=== PATIENT | female | born 1965 | race Caucasian/White ===

== ENCOUNTER 2018-08-27 16:23 | Inpatient (IN) | payer MEDICAID ==
[~2018-08-27] VITALS: Ht 160 cm; Wt 114.3 kg
[2018-08-27] VITALS (10 sets, daily range): BP systolic 116–144; BP diastolic 41–83; BMI 51.8
--- NOTE | ~2018-08-27 | MORECARE ---
CASE MANAGEMENT DISCHARGE SUMMARY PATIENT: DWAYNE SMITH UNIT: [id number] ADM DATE: 08/27/18 AGE: 53 : 67 SEX: F ROOM/BED: D.2313 AUTHOR: ZAK DURON PHYSICIAN: REFERRING PHYSICIAN: LEON VELAZQUEZ MD DATE OF SERVICE: 09/20/18 Discharge Plan Patient Name: DWAYNE SMITH Facility: [facility]:[place] : 1965 Planned Disposition: Anticipated Discharge Date: Discharge Date: Expected LOS: Initial Reviewer: [id number] Initial Review Date: 08/27/2018 Generated: 09/20/18 8:33 pm Comments DCP- Discharge Planning Updated by [id number]: Erin Ruiz on 09/20/18 6:[address] CM attempted to visit with patient regarding discharge planning. Patient is alert but still on ventilator. Attempted to contact call contact number listed [phone]. NO Answer. NO family available.CM will continue to follow and assist as needed with discharge planning / needs. DCP- Discharge Planning Updated by [email or web address]: Erin Ruiz on 09/03/18 3:[address] Patient still sedated and on vent at this time. No family available to do discharge planning assessment. CM will continue to follow and assist as needed with discharge planning / needs. DCP- Discharge Planning Updated by [email or web address]: Sapna Steele on 09/01/18 9:[address] Patient Name: DWAYNE SMITH Admission Status: ER Accout number: [id number] Admission Date: 08-27-2018 : 1965 Admission Diagnosis: Attending: LEON VELAZQUEZ Current LOS: 5 Anticipated DC Date: Planned Disposition: Primary Insurance: MEDICAID [place] Discharge Planning Comments: PATIENT IS ON VENT. CALLED PHONE NUMBER LISTED ON HER CHART AND CHECKED THE WAITING ROOM FOR FAMILY. UNABLE TO GET IN TOUCH WITH FAMILY AT THIS TIME. I LEFT A MESSAGE ON THE PHONE, WAITING TO HEAR BACK. CM WILL FOLLOW AND ASSIST NEEDED WITH DC PLANNING NEEDS. Multimedia Producer: Sapna Steele Last DP export: 09/03/18 3:10 Patient Name: DWAYNE SMITH Page [id number] at 1934 All edits/amendments must be made on the electronic document DICTATION DATE: 09/20/181932 GROUP INSURANCE SPECIALIST: ELEAZAR 09/20/181932 RPT#: [id number] DC DATE: STATUS: ADM IN [facility] [address] [place] [address] END OF REPORT
--- NOTE | ~2018-08-27 | EC ---
PATIENT:DWAYNE SMITH DATE OF SERVICE: 08/27/18 SEX: F MEDICAL RECORD: [id number] DATE OF : 67 LOCATION:[facility] AGE OF PATIENT: 53 ADMISSION DATE: 08/27/18 REFERRING PHYSICIAN: INTERPRETING PHYSICIAN: ZACHERY GONZALEZ MD ECHOCARDIOGRAM REPORT ECHO CHARGES 4 ECHO COMPLETE Date: 09/06/18 CLINICAL DIAGNOSIS: PNEUMO MEDIASTINUM ECHOCARDIOGRAPHIC MEASUREMENTS (adult normal given) AC root (d.<3.7cm) 3.0 cm LV Septum d (<1.2 cm> 1.4 cm Valve Excursion 1.7 cm LV Septum (systole) 2.1 cm Left Atria (s.<4.0cm> 3.0 cm LVPW d(<1.2cm) 1.3 cm RV (d.<2.3cm) 2.3 cm LVPW (sytole) 2.1 cm LV diastole(<5.6CM) 4.5 cm MV E-F(>70mm/sec) cm LV systole 1.7 cm LVOT Diameter 1.7 cm MV exc.(>10mm) cm Est.ejection fraction (50-75%) % DOPPLER: LVIT cm/sec A 111 cm/sec E 83.0 cm/sec LA cm/sec RVSP 23.0 mmHg LVOT 215 cm/sec AOP1/2T m/s Asc. Ao 195 cm/sec RVOT 69.0 cm/sec RA cm/sec PA 110 cm/sec AV Gradient Peak 15.2 mmHg AV Mean 8.4 mmHg AV Area 2.4 cm MV Gradient Peak 5.0 mmHg MV Mean 2.0 mmHg MV Area cm COMMENTS: Dry Room Operator: Fernando KOCHOE Basket Hand Weaver: 1 Dr. Gonzalez TAPE# PACS Pericardial Effusion N DATE OF SERVICE: 09/06/2018 FINDINGS: 1. Left ventricular chamber size is within normal limits. Left ventricular systolic function is normal. Overall ejection fraction is estimated at 65%. 2. Left atrium, right atrium, and right ventricle chamber sizes are within normal limit. 3. Valvular structures have normal structure and motion. 4. Doppler interrogation reveals only mild mitral regurgitation. No other valvular insufficiency or stenosis. Pulmonary systolic pressure is normal at 23 ECHOCARDIOGRAM REPORT [id number] DWAYNE SMITH mmHg. 5. No evidence of pericardial effusion or left ventricular thrombus. TRANSINT:[id number] Voice Confirmation ID: [id number] DOCUMENT ID: [id number] ZACHERY GONZALEZ MD at 1059 CC: [id number] DICTATION DATE: 09/06/18 1640 AUTO RADIO MECHANIC: 09/06/18 1652 ADM IN [facility] [address] [place] [address]
--- NOTE | ~2018-08-27 | MORECARE ---
CASE MANAGEMENT DISCHARGE SUMMARY PATIENT: DWAYNE SMITH UNIT: [id number] ADM DATE: 08/27/18 AGE: 53 : 67 SEX: F ROOM/BED: D.0 AUTHOR: OLIVERIO,DOC PHYSICIAN: REFERRING PHYSICIAN: LEON VELAZQUEZ MD DATE OF SERVICE: 10/10/18 Discharge Plan Patient Name: DWAYNE SMITH Facility: [facility] : 1965 Planned Disposition: Nursing Facility [facility] Cert Anticipated Discharge Date: 10/10/18 Discharge Date: Expected LOS: 44 Initial Reviewer: [id number] Initial Review Date: 09/24/2018 Generated: 10/10/18 11:35 am Comments DCP- Discharge Planning Updated by [id number]: Pepito Hatch on 10/10/18 9:[address] Patient Name: DWAYNE SMITH Encounter No: [id number] : 1965 Primary Insurance: MEDICAID [place] Anticipated DC Date: 10-10-2018 Planned Disposition: Nursing Facility [facility] Cert External Planned Provider: [facility], INSTRUMENT WORKER CARE MEDICAID BED DCP follow-up note: CM RECEIVED DISCHARGE ORDER, SPOKE TO PT WHO IS IN AGREEMENT WITH DISCHARGE TODAY TO [facility]. CM FAXED DISCHARGE INFORMATION TO [facility], . NURSE REPORT TO BE CALLED TO [facility] IN [place], , [facility] VAN TO MANAGER MULTICULTURAL AT 1000 AM 10-10-18. Pepito Hatch, CASE MANAGEMENT Appended by Pepito Hatch on 10/10/2018 10:30 EDUCATIONAL PSYCHOLOGY PROFESSOR: ALEX ADVISED THAT CM HAD PROVIDED THE WRONG NUMBER FOR NURSE REPORT. THE CORRECT NUMBER IS : NURSE REPORT TO BE CALLED TO [facility] IN [place], , SOFTWARE INSTALLER NURSE NOTIFIED. GERI Johnson DCP- Discharge Planning Updated by [id number]: Pepito Hatch on 10/09/18 4:[address] Patient Name: DWAYNE SMITH Encounter No: [id number] : 1965 Primary Insurance: MEDICAID [place] Anticipated DC Date: 10-10-2018 Planned Disposition: Nursing Facility [facility] Cert External Planned Provider: [facility], INSTRUMENT WORKER CARE MEDICAID BED DCP follow-up note: CM RECEIVED CALL [facility] [place], , SPOKE TO GREGORIO WHO REPORTS THEY WILL ACCEPT PT FOR INSTRUMENT WORKER CARE TOMORROW, 10-10-18. VAN TO MANAGER MULTICULTURAL PT TOMORROW AT 1000 AM. CM NOTIFIED PT WHO IS IN AGREEMENT AND WILL NOTIFY HER DAUGHTER. BEDSIDE NURSE NOTIFIED. NURSE REPORT TO BE CALLED TO [facility] IN [place], , FAX DISCHARGE INFORMATION TO [facility], . [facility] VAN TO MANAGER MULTICULTURAL AT 1000 AM 10-10-18. Pepito Hatch, CASE MANAGEMENT DCP- Discharge Planning Updated by [email or web address]: Pepito Hatch on 10/09/18 12:[address] Patient Name: DWAYNE SMITH Encounter No: [id number] : 1965 Primary Insurance: MEDICAID [facility] Date: 10-08-2018 Planned Disposition: Nursing Facility [facility] Cert External Planned Provider: FIRST ACCEPTING FACILITY FOR INSTRUMENT WORKER CARE MEDICAID BED DCP follow-up note: CM SPOKE TO PT IN ROOM WHO REPORTS THAT [facility] WILL NOT TAKE HER THEY WILL NOT TAKE SOMEONE WITH A TRACH. PT ASKED FOR REFERRALS TO BE SENT TO NURSING HOMES IN [place] AND [facility], CHOICE SIGNED. CM CALLED [facility] [place], , SPOKE TO GREGORIO WHO WILL REVIEW REFERRAL FOR INSTRUMENT WORKER CARE. CM FAXED REFERRAL TO [facility] [place], . CM CALLED [place] [facility], , SPOKE TO CRISSY WHO REPORTS PB WILL REVIEW REFERRAL AND CALL CM BACK. CM FAXED REFERRAL TO [place] [facility], . CM CALLED [facility], , SPOKE TO GREGORIO WHO WILL REVIEW REFERRAL FOR CARE HOME CARE. CM FAXED REFERRAL TO [facility] AT [phone]. CM WAITING ADMISSION DETERMINATIONS FROM [facility] [place], [place] [facility] FOR INSTRUMENT WORKER CARE. Pepito Hatch, CASE MANAGEMENT DCP- Discharge Planning Updated by [id number]: Pepito Hatch on 10/07/18 3:[address] Patient Name: DWAYNE SMITH Encounter No: [id number] : 1965 Primary Insurance: MEDICAID [place] Anticipated DC Date: 10-08-2018 Planned Disposition: Nursing Facility [facility] Cert External Planned Provider: [facility] TERM CARE MEDICAID BED DCP follow-up note: CM SPOKE TO PT IN ROOM REGARDING DISCHARGE PLANNING. PT INITIALLY REPORTS WANTING TO GO HOME WITH FAMILY ASSISTANCE, ASKED CM TO SPEAK TO HER DAUGHTER, MELISSA AT [phone]. CM SPOKE TO MELISSA IN PRESENCE OF PT VIA PHONE. MELISSA REPORTS THAT PT IS NOT SAFE TO RETURN HOME AND NEEDS CARE HOME CARE AT THE [facility] AGAIN. MELISSA WOULD LIKE REFERRAL FAXED TO [facility] WHERE PT HAS BEEN PLACED IN THE PAST AND THAT MELISSA WORKS AT. PT IN AGREEMENT WITH PLAN, CHOICE SIGNED. PT REPORTS HER FAMILY CAN TRANSPORT IF ACCEPTED AND THEY HAVE PORTABLE OXYGEN AT HOME FOR TRANSPORT. CM CALLED [facility], , SPOKE TO JOSE LUIS WHO KNOWS PT AND WILL EVALUATE FOR CARE HOME CARE. CM FAXED REFERRAL TO [facility] AT [phone]. CM WAITING ADMISSION DETERMINATION FOR [facility]ARE HOME CARE FROM [facility] IN [place], [place]. Pepito Hatch CASE MANAGEMENT DCP- Discharge Planning Updated by [email or web address]: Erin Ruiz on 10/03/18 7:[address] LATE ENTRY 10/03/18 @ 1630 CM MET WITH PATIENT. SHE DOESN'T WANT TO GO TO A [facility] FACILITY. SHE WANTS TO GO HOME WITH HOME HEALTH SERVICES. CM WILL CONTACT PATIENTS DAUGHTERS AND MAKE SURE THAT THEY ARE AVAILABLE TO ASSIST IN PATIENTS CARE. CM WILL CONTINUE TO FOLLOW AND ASSIST WITH DISCHARGE PLANNING / NEEDS. DCP- Discharge Planning Updated by [id number]: Ivy Varma on 09/29/18 4:[address] MELISSA SMITH, FAMILY MEMBER, WHO VISITED AT THE BEDSIDE TODAY REQUESTED THAT THE PATIENT BE PLACED CLOSE TO HOME WHEN STABLE FOR TRANSFER FOR REHAB SERVICES. SHE DESIRES FACILITY NEAR [place] OR [place]. SHE CAN BE REACHED AT [phone]. HER SISTER IS CRISSY SMITH AND CAN BE REACHED AT [phone]. DCP- Discharge Planning Updated by [email or web address]: Erin Ruiz on 09/24/18 5:[address] Late Entry - 09/24/18 @ 1230 Patient Name: DWAYNE SMITH Admission Status: ER Accout number: [id number] Admission Date: 08-27-2018 : 1965 Admission Diagnosis:SEPSIS, UNSPECIFIED ORGANISM Attending: LEON VELAZQUEZ Current LOS: 28 Anticipated DC Date: Planned Disposition: Home Primary Insurance: MEDICAID [place] Discharge Planning Comments: CM was able to speak with patient today she was off vent with pasmere valve in place. It was difficult to understand her but CM was able to get that she lived with a friend prior to admission and plans on returning there on discharge. Patient states she has a walker and home 02. CM will continue to follow and assist as needed with discharge planning / needs. Vault Custodian: Erin Ruiz DCP- Discharge Planning Updated by [email or web address]: Erin Ruiz on 09/23/18 4:[address] [facility] will not accept patient d/t patient only having Medicaid as a payer source. CM has contacted LTACH facilities within the state and the ones that take valeria beds will not have any beds until after of the year. CM will continue to assist with discharge planning / needs DCP- Discharge Planning Updated by [email or web address]: Erin Ruiz on 09/20/18 6:[address] CM attempted to visit with patient regarding discharge planning. Patient is alert but still on ventilator. Attempted to contact call contact number listed [phone]. NO Answer. NO family available.CM will continue to follow and assist as needed with discharge planning / needs. DCP- Discharge Planning Updated by [id number]: Erin Ruiz on 09/03/18 3:[address] Patient still sedated and on vent at this time. No family available to do discharge planning assessment. CM will continue to follow and assist as needed with discharge planning / needs. DCP- Discharge Planning Updated by [id number]: Sapna Steele on 09/01/18 9:[address] Patient Name: DWAYNE SMITH Admission Status: ER Accout number: [id number] Admission Date: 08-27-2018 : 1965 Admission Diagnosis: Attending: LEON VELAZQUEZ Current LOS: 5 Anticipated DC Date: Planned Disposition: Primary Insurance: MEDICAID [place] Discharge Planning Comments: PATIENT IS ON VENT. CALLED PHONE NUMBER LISTED ON HER CHART AND CHECKED THE WAITING ROOM FOR FAMILY. UNABLE TO GET IN TOUCH WITH FAMILY AT THIS TIME. I LEFT A MESSAGE ON THE PHONE, WAITING TO HEAR BACK. CM WILL FOLLOW AND ASSIST NEEDED WITH DC PLANNING NEEDS. Vault Custodian: Sapna Steele DCPIA - Discharge Planning Initial Assessment Updated by [id number]: Pepito Hatch on 10/07/18 4:32 pm * Is the patient Alert and Oriented? Yes * How many steps to enter\exit or inside your home? * PCP MD in [place] * Pharmacy [facility] * Preadmission Environment Home with Family * ADLs Independent * Equipment Oxygen * Other Equipment walker * List name and contact numbers for known caregivers / representatives who currently or will assist patient after discharge: MELISSA, DAUGHTER, * Verbal permission to speak to the caregivers and representatives has been obtained from the patient. N/A * Community resources currently utilized None * Additional services required to return to the preadmission environment? No * Can the patient safely return to the preadmission environment? Yes * Has this patient been hospitalized within the prior 30 days at any hospital? No Coverage Notice Reviewer: [id number] - Pepito Hatch Notice Issued Date-Time: 10/07/2018 9:45 Notice Type: Patient Choice Letter Notice Delivered To: Patient Relationship to Patient: Heat Treat Operator Name: Delivery Method: HAND - Hand Delivered Clarissa Days: Prior Verbal Notification: Recipient Understood Notice: Yes Recipient Signature: Yes Med Rec Note Co-signed by Attending: Coverage Notice Comment: LTC FERNIE Last DP export: 10/10/18 9:01 a Patient Name: DWAYNE SMITH Page 21338 at 1035 All edits/amendments must be made on the electronic document DICTATION DATE: 10/10/18 1035 PROFESSIONAL ENGINEER: ELEAZAR 10/10/18 1035 RPT#: [id number] DC DATE: STATUS: ADM IN [facility] [address] [place] [address] END OF REPORT
--- NOTE | ~2018-08-27 | MORECARE ---
CASE MANAGEMENT DISCHARGE SUMMARY PATIENT: DWAYNE SMITH UNIT: [id number] ADM DATE: 08/27/18 AGE: 53 : 67 SEX: F ROOM/BED: D.0 AUTHOR: OLIVERIO,DOC PHYSICIAN: REFERRING PHYSICIAN: LEON VELAZQUEZ MD DATE OF SERVICE: 10/09/18 Discharge Plan Patient Name: DWAYNE SMITH Facility: [facility]:[place] : 1965 Planned Disposition: Nursing Facility [facility] Cert Anticipated Discharge Date: 10/10/18 Discharge Date: Expected LOS: 44 Initial Reviewer: [id number] Initial Review Date: 09/24/2018 Generated: 10/09/18 6:34 pm Comments DCP- Discharge Planning Updated by [id number]: Pepito Hatch on 10/09/18 4:[address] Patient Name: DWAYNE SMITH Encounter No: [id number] : 1965 Primary Insurance: MEDICAID [place] Anticipated DC Date: 10-10-2018 Planned Disposition: Nursing Facility [facility] Cert External Planned Provider: [facility], CARE HOME CARE MEDICAID BED DCP follow-up note: CM RECEIVED CALL FROM [facility] IN [place], , SPOKE TO GREGORIO WHO REPORTS THEY WILL ACCEPT PT FOR CARE HOME CARE TOMORROW, 10-10-18. VAN TO WORK MEASUREMENT ENGINEER PT TOMORROW AT 1000 AM. CM NOTIFIED PT WHO IS IN AGREEMENT AND WILL NOTIFY HER DAUGHTER. BEDSIDE NURSE NOTIFIED. NURSE REPORT TO BE CALLED TO [facility] IN [place], , FAX DISCHARGE INFORMATION TO [facility], . [facility]TER VAN TO WORK MEASUREMENT ENGINEER AT 1000 AM 10-10-18. Pepito Hatch, CASE MANAGEMENT DCP- Discharge Planning Updated by [id number]: Pepito Hatch on 10/09/18 12:[address] Patient Name: DWAYNE SMITH Encounter No: [id number] : 1965 Primary Insurance: MEDICAID [place] Anticipated DC Date: 10-08-2018 Planned Disposition: Nursing Facility [facility] Cert External Planned Provider: FIRST ACCEPTING FACILITY FOR CARE HOME CARE MEDICAID BED DCP follow-up note: CM SPOKE TO PT IN ROOM WHO REPORTS THAT [facility] WILL NOT TAKE HER THEY WILL NOT TAKE SOMEONE WITH A TRACH. PT ASKED FOR REFERRALS TO BE SENT TO NURSING HOMES IN [place] AND [facility], CHOICE SIGNED. CM CALLED [facility] [place], , SPOKE TO GREGORIO WHO WILL REVIEW REFERRAL FOR DIRECTOR OF LEARNING CARE. CM FAXED REFERRAL TO [facility] [place], . CM CALLED [place] [facility], , SPOKE TO CRISSY WHO REPORTS PB WILL REVIEW REFERRAL AND CALL CM BACK. CM FAXED REFERRAL TO [place] [facility], . CM CALLED [facility], , SPOKE TO GREGORIO WHO WILL REVIEW REFERRAL FOR CARE HOME CARE. CM FAXED REFERRAL TO [facility] AT [phone]. CM WAITING ADMISSION DETERMINATIONS FROM [facility] IN [place], [place] [facility] FOR DIRECTOR OF LEARNING CARE. Pepito Hatch, CASE MANAGEMENT DCP- Discharge Planning Updated by [id number]: Pepito Hatch on 10/07/18 3:[address] Patient Name: DWAYNE SMITH Encounter No: [id number] : 1965 Primary Insurance: MEDICAID [facility] Date: 10-08-2018 Planned Disposition: Nursing Facility [facility] Cert External Planned Provider: [facility] TERM CARE MEDICAID BED DCP follow-up note: CM SPOKE TO PT IN ROOM REGARDING DISCHARGE PLANNING. PT INITIALLY REPORTS WANTING TO GO HOME WITH FAMILY ASSISTANCE, ASKED CM TO SPEAK TO HER DAUGHTER, MELISSA AT [phone]. CM SPOKE TO MELISSA IN PRESENCE OF PT VIA PHONE. MELISSA REPORTS THAT PT IS NOT SAFE TO RETURN HOME AND NEEDS CARE HOME CARE AT THE [facility] AGAIN. MELISSA WOULD LIKE REFERRAL FAXED TO [facility] WHERE PT HAS BEEN PLACED IN THE PAST AND THAT MELISSA WORKS AT. PT IN AGREEMENT WITH PLAN, QUETA SIGNED. PT REPORTS HER FAMILY CAN TRANSPORT IF ACCEPTED AND THEY HAVE PORTABLE OXYGEN AT HOME FOR TRANSPORT. CM CALLED [facility], , SPOKE TO JOSE LUIS WHO KNOWS PT AND WILL EVALUATE FOR DIRECTOR OF LEARNING CARE. CM FAXED REFERRAL TO [facility] AT [phone]. CM WAITING ADMISSION DETERMINATION FOR [facility] CARE FROM [facility] IN [place], [place]. Pepito Hatch, CASE MANAGEMENT DCP- Discharge Planning Updated by [id number]: Erin Ruiz on 10/03/18 7:[address] LATE ENTRY 10/03/18 @ 1635 CM MET WITH PATIENT. SHE DOESN'T WANT TO GO TO A [facility] FACILITY. SHE WANTS TO GO HOME WITH HOME HEALTH SERVICES. CM WILL CONTACT PATIENTS DAUGHTERS AND MAKE SURE THAT THEY ARE AVAILABLE TO ASSIST IN PATIENTS CARE. CM WILL CONTINUE TO FOLLOW AND ASSIST WITH DISCHARGE PLANNING / NEEDS. DCP- Discharge Planning Updated by [id number]: Ivy Varma on 09/29/18 4:[address] MELISSA SMITH, FAMILY MEMBER, WHO VISITED AT THE BEDSIDE TODAY REQUESTED THAT THE PATIENT BE PLACED CLOSE TO HOME WHEN STABLE FOR TRANSFER FOR REHAB SERVICES. SHE DESIRES FACILITY NEAR [place] OR [place]. SHE CAN BE REACHED AT [phone]. HER SISTER IS CRISSY SMITH AND CAN BE REACHED AT [phone]. DCP- Discharge Planning Updated by [id number]: Erin Ruiz on 09/24/18 5:[address] Late Entry - 09/24/18 @ 4556 Patient Name: DWAYNE SMITH Admission Status: Accout number: [id number] Admission Date: 08-27-2018 : 1965 Admission Diagnosis:SEPSIS, UNSPECIFIED ORGANISM Attending: LEON VELAZQUEZ Current LOS: 28 Anticipated DC Date: Planned Disposition: Home Primary Insurance: MEDICAID [place] Discharge Planning Comments: CM was able to speak with patient today she was off vent with pasmere valve in place. It was difficult to understand her but CM was able to get that she lived with a friend prior to admission and plans on returning there on discharge. Patient states she has a walker and home 02. CM will continue to follow and assist as needed with discharge planning / needs. Appliance Fixer: Erin Ruiz DCP- Discharge Planning Updated by [id number]: Erin Ruiz on 09/23/18 4:[address] [facility] will not accept patient d/t patient only having Medicaid as a payer source. CM has contacted LTACH facilities within the state and the ones that take valeria beds will not have any beds until after of the year. CM will continue to assist with discharge planning / needs DCP- Discharge Planning Updated by [id number]: Erinsalvatore Ruiz on 09/20/18 6:[address] CM attempted to visit with patient regarding discharge planning. Patient is alert but still on ventilator. Attempted to contact call contact number listed [phone]. NO Answer. NO family available.CM will continue to follow and assist as needed with discharge planning / needs. DCP- Discharge Planning Updated by [id number]: Erin Ruiz on 09/03/18 3:[address] Patient still sedated and on vent at this time. No family available to do discharge planning assessment. CM will continue to follow and assist as needed with discharge planning / needs. DCP- Discharge Planning Updated by [email or web address]: Sapna Steele on 09/01/18 9:[address] Patient Name: DWAYNE SMITH Admission Status: ER Accout number: [id number] Admission Date: 08-27-2018 : 1965 Admission Diagnosis: Attending: LEON VELAZQUEZ Current LOS: 5 Anticipated DC Date: Planned Disposition: Primary Insurance: MEDICAID [place] Discharge Planning Comments: PATIENT IS ON VENT. CALLED PHONE NUMBER LISTED ON HER CHART AND CHECKED THE WAITING ROOM FOR FAMILY. UNABLE TO GET IN TOUCH WITH FAMILY AT THIS TIME. I LEFT A MESSAGE ON THE PHONE, WAITING TO HEAR BACK. CM WILL FOLLOW AND ASSIST NEEDED WITH DC PLANNING NEEDS. Appliance Fixer: Sapna Steele DCPIA - Discharge Planning Initial Assessment Updated by [email or web address]: Pepito Hatch on 10/07/18 4:32 pm * Is the patient Alert and Oriented? Yes * How many steps to enter\exit or inside your home? * PCP MD in [place] * Pharmacy [facility] * Preadmission Environment Home with Family * ADLs Independent * Equipment Oxygen * Other Equipment walker * List name and contact numbers for known caregivers / representatives who currently or will assist patient after discharge: MELISSA, DAUGHTER, * Verbal permission to speak to the caregivers and representatives has been obtained from the patient. N/A * Community resources currently utilized None * Additional services required to return to the preadmission environment? No * Can the patient safely return to the preadmission environment? Yes * Has this patient been hospitalized within the prior 30 days at any hospital? No Coverage Notice Reviewer: [id number] Valerie Hatch Notice Issued Date-Time: 10/07/2018 9:45 Notice Type: Patient Choice Letter Notice Delivered To: Patient Relationship to Patient: Social Services Aide Name: Delivery Method: HAND - Hand Delivered Clarissa Days: Prior Verbal Notification: Recipient Understood Notice: Yes Recipient Signature: Yes Med Rec Note Co-signed by Attending: Coverage Notice Comment: LTC FERNIE Last DP export: 10/09/18 4:08 p Patient Name: DWAYNE SMITH Page 08377 at 1734 All edits/amendments must be made on the electronic document DICTATION DATE: 10/09/181733 BRICKLAYER TENDER: ELEAZAR 10/09/181733 RPT#: [id number] DC DATE: STATUS: ADM IN [facility] [address] [place] [address] END OF REPORT
--- NOTE | ~2018-08-27 | MORECARE ---
CASE MANAGEMENT DISCHARGE SUMMARY PATIENT: DWAYNE SMITH UNIT: [id number] ADM DATE: 08/27/18 AGE: 53 : 67 SEX: F ROOM/BED: D.2313 AUTHOR: OLIVERIO,DOC PHYSICIAN: REFERRING PHYSICIAN: LEON VELAZQUEZ MD DATE OF SERVICE: 09/24/18 Discharge Plan Patient Name: DWAYNE SMITH Facility: [facility]:[place] : 1965 Planned Disposition: Home Anticipated Discharge Date: Discharge Date: Expected LOS: Initial Reviewer: [email or web address] Initial Review Date: 09/24/2018 Generated: 09/24/18 7:44 pm Comments DCP- Discharge Planning Updated by [email or web address]: Erin Ruiz on 09/24/18 5:[address] Late Entry - 09/24/18 @ 1230 Patient Name: DWAYNE SMITH Admission Status: ER Accout number: [id number] Admission Date: 08-27-2018 : 1965 Admission Diagnosis:SEPSIS, UNSPECIFIED ORGANISM Attending: LEON VELAZQUEZ Current LOS: 28 Anticipated DC Date: Planned Disposition: Home Primary Insurance: MED[place]ID [place] Discharge Planning Comments: CM was able to speak with patient today she was off vent with pasmere valve in place. It was difficult to understand her but CM was able to get that she lived with a friend prior to admission and plans on returning there on discharge. Patient states she has a walker and home 02. CM will continue to follow and assist as needed with discharge planning / needs. Machine Pan Greaser: Erin Ruiz DCP- Discharge Planning Updated by [email or web address]: Erin Ruiz on 09/23/18 4:[address] [facility] will not accept patient d/t patient only having Medicaid as a payer source. CM has contacted LTACH facilities within the state and the ones that take valeria beds will not have any beds until after of the year. CM will continue to assist with discharge planning / needs DCP- Discharge Planning Updated by [email or web address]: Erin Ruiz on 09/20/18 6:[address] CM attempted to visit with patient regarding discharge planning. Patient is alert but still on ventilator. Attempted to contact call contact number listed [phone]. NO Answer. NO family available.CM will continue to follow and assist as needed with discharge planning / needs. DCP- Discharge Planning Updated by [id number]: Erin Ruiz on 09/03/18 3:[address] Patient still sedated and on vent at this time. No family available to do discharge planning assessment. CM will continue to follow and assist as needed with discharge planning / needs. DCP- Discharge Planning Updated by [id number]: Sapna Steele on 09/01/18 9:[address] Patient Name: DWAYNE SMITH Admission Status: ER Accout number: [id number] Admission Date: 08-27-2018 : 1965 Admission Diagnosis: Attending: LEON VELAZQUEZ Current LOS: 5 Anticipated DC Date: Planned Disposition: Primary Insurance: [place]ID [place] Discharge Planning Comments: PATIENT IS ON VENT. CALLED PHONE NUMBER LISTED ON HER CHART AND CHECKED THE WAITING ROOM FOR FAMILY. UNABLE TO GET IN TOUCH WITH FAMILY AT THIS TIME. I LEFT A MESSAGE ON THE PHONE, WAITING TO HEAR BACK. CM WILL FOLLOW AND ASSIST NEEDED WITH DC PLANNING NEEDS. Machine Pan Greaser: Sapna Steele DCPIA - Discharge Planning Initial Assessment Updated by [email or web address]: Erin Ruiz on 09/24/18 6:36 pm * Is the patient Alert and Oriented? Yes * How many steps to enter\exit or inside your home? * PCP MD in [place] * Pharmacy [facility] * Preadmission Environment Home with Family * ADLs Independent * Equipment Oxygen * Other Equipment walker * List name and contact numbers for known caregivers / representatives who currently or will assist patient after discharge: Monalisa - daughter ? * Verbal permission to speak to the caregivers and representatives has been obtained from the patient. N/A * Community resources currently utilized None * Additional services required to return to the preadmission environment? No * Can the patient safely return to the preadmission environment? Yes * Has this patient been hospitalized within the prior 30 days at any hospital? No Last DP export: 09/24/18 5:38 Patient Name: DWAYNE SMITH Page 64738 at 1844 All edits/amendments must be made on the electronic document DICTATION DATE: 09/24/181843 MOLD FILLER: DM 09/24/181843 RPT#: [id number] DC DATE: STATUS: ADM IN [facility] [address] [place] [address] END OF REPORT
--- NOTE | ~2018-08-27 | MORECARE ---
CASE MANAGEMENT DISCHARGE SUMMARY PATIENT: DWAYNE SMITH UNIT: [id number] ADM DATE: 08/27/18 AGE: 53 : 67 SEX: F ROOM/BED: D.2313 AUTHOR: ZAK DURON PHYSICIAN: REFERRING PHYSICIAN: LEON VELAZQUEZ MD DATE OF SERVICE: 09/01/18 Discharge Plan Patient Name: DWAYNE SMITH Facility: [facility]:[place] : 1965 Planned Disposition: Anticipated Discharge Date: Discharge Date: Expected LOS: Initial Reviewer: [email or web address] Initial Review Date: 08/27/2018 Generated: 09/01/18 10:56 am Comments DCP- Discharge Planning Updated by [email or web address]: Sapna Steele on 09/01/18 8:[address] Patient Name: DWAYNE SMITH Admission Status: ER Accout number: [id number] Admission Date: 08-27-2018 : 1965 Admission Diagnosis: Attending: LEON VELAZQUEZ Current LOS: 5 Anticipated DC Date: Planned Disposition: Primary Insurance: MEDICAID [place] Discharge Planning Comments: PATIENT IS ON VENT. CALLED PHONE NUMBER LISTED ON HER CHART AND CHECKED THE WAITING ROOM FOR FAMILY. UNABLE TO GET IN TOUCH WITH FAMILY AT THIS TIME. I LEFT A MESSAGE ON THE PHONE, WAITING TO HEAR BACK. CM WILL FOLLOW AND ASSIST NEEDED WITH DC PLANNING NEEDS. Resident Medical Officer: Sapna Steele Last DP export: 08/27/18 4:29 Patient Name: DWAYNE SMITH Page [id number] at 0956 All edits/amendments must be made on the electronic document DICTATION DATE: 09/01/18955 ANKLE PATCH MOLDER: ELEAZAR 09/01/18955 RPT#: [id number] DC DATE: STATUS: ADM IN [place] [address] [place] [address] END OF REPORT
--- NOTE | ~2018-08-27 | OP ---
PATIENT NAME: DWAYNE SMTIH MEDICAL RECORD: [id number] :[birth year] LOCATION:D[facility] D.2313 ADMISSION DATE:08/27/18 SURGEON: EMIL PRATT MD DATE OF OPERATION: 09/10/2018 PREOPERATIVE DIAGNOSES: 1. Respiratory failure on the ventilator. 2. Congestive heart failure. 3. Hypertension. 4. Chronic renal insufficiency. POSTOPERATIVE DIAGNOSES: 1. Respiratory failure on the ventilator. 2. Congestive heart failure. 3. Hypertension. 4. Chronic renal insufficiency. PROCEDURE: An 8-Togolese percutaneous tracheostomy tube placement. SURGEON: Emil Pratt MD REPORT OF PROCEDURE: The patient's neck was prepped and draped in sterile fashion. A bronchoscope was advanced through the endotracheal tube. We then backed it up into position. A skin incision was made on the lower aspect of the trach through a previous tracheostomy site. Using the Angiocath needle, I advanced this needle through the subcutaneous tissues and tracheal wall under direct visualization. The wire was advanced through the Angiocath followed by the multiple dilators. The white Rhino dilator was then advanced over the wire followed by the 8-Togolese tracheostomy tube. The balloon was inflated and the tracheostomy was sutured into place with 2-0 silk. We then advanced the bronchoscope back through the tracheostomy. I was able to get past the roseann into the right and left bronchi. There was some blood present in the left lateral bronchus and this was suctioned out until it was clear. The remainder of the lung beds appeared to be free of any residual blood. At this point, the scope was removed. COMPLICATIONS: None. CONDITION: Stable. ANESTHESIA: General endotracheal. BLOOD LOSS: Minimal. Procedure done in the ICU at the bedside. TRANSINT:[id number] Voice Confirmation ID: [id number] DOCUMENT ID: [id number] OPERATIVE REPORT [id number] DWAYNE SMITH CHRISTIAN MD at 1219 CC: [id number] DICTATION DATE: 09/10/18 1601 MOPHEAD TRIMMER AND WRAPPER: 09/10/18 2253 ADM IN [place] [id number] [place] [address]
--- NOTE | ~2018-08-27 | MORECARE ---
CASE MANAGEMENT DISCHARGE SUMMARY PATIENT: DWAYNE SMITH UNIT: [id number] ADM DATE: 08/27/18 AGE: 53 : 67 SEX: F ROOM/BED: D.0 AUTHOR: OLIVERIO,DOC PHYSICIAN: REFERRING PHYSICIAN: LEON VELAZQUEZ MD DATE OF SERVICE: 10/09/18 Discharge Plan Patient Name: DWAYNE SMITH Facility: [facility]:[place] : 1965 Planned Disposition: Nursing Facility DEL[facility]Y Cert Anticipated Discharge Date: 10/08/18 Discharge Date: Expected LOS: 42 Initial Reviewer: [id number] Initial Review Date: 09/24/2018 Generated: 10/09/18 12:27 pm Comments DCP- Discharge Planning Updated by [email or web address]: Pepito Hatch on 10/07/18 3:[address] Patient Name: DWAYNE SMITH Encounter No: [id number] : 1965 Primary Insurance: MEDICAID [place] Anticipated DC Date: 10-08-2018 Planned Disposition: Nursing Facility DEL[facility]Y Cert External Planned Provider: [facility] IN [place], LONG TERM CARE MEDICAID BED DCP follow-up note: CM SPOKE TO PT IN ROOM REGARDING DISCHARGE PLANNING. PT INITIALLY REPORTS WANTING TO GO HOME WITH FAMILY ASSISTANCE, ASKED CM TO SPEAK TO HER DAUGHTER, MELISSA AT [phone]. CM SPOKE TO MELISSA IN PRESENCE OF PT VIA PHONE. MELISSA REPORTS THAT PT IS NOT SAFE TO RETURN HOME AND NEEDS FIRE EQUIPMENT REPAIRER INSPECTOR CARE AT THE [facility] AGAIN. MELISSA WOULD LIKE REFERRAL FAXED TO [facility] WHERE PT HAS BEEN PLACED IN THE PAST AND THAT MELISSA WORKS AT. PT IN AGREEMENT WITH PLAN, CHOICE SIGNED. PT REPORTS HER FAMILY CAN TRANSPORT IF ACCEPTED AND THEY HAVE PORTABLE OXYGEN AT HOME FOR TRANSPORT. CM CALLED [facility], , SPOKE TO JOSE LUIS WHO KNOWS PT AND WILL EVALUATE FOR FIRE EQUIPMENT REPAIRER INSPECTOR CARE. CM FAXED REFERRAL TO [facility] AT [phone]. CM WAITING ADMISSION DETERMINATION FOR DETENTION CARE FROM [facility] IN [place], [place]. Pepito Hatch, CASE JESSICA DCP- Discharge Planning Updated by [id number]: Erin Ruiz on 10/03/18 7:[address] LATE ENTRY 10/03/18 @ 1630 CM MET WITH PATIENT. SHE DOESN'T WANT TO GO TO A [facility] FACILITY. SHE WANTS TO GO HOME WITH HOME HEALTH SERVICES. CM WILL CONTACT PATIENTS DAUGHTERS AND MAKE SURE THAT THEY ARE AVAILABLE TO ASSIST IN PATIENTS CARE. CM WILL CONTINUE TO FOLLOW AND ASSIST WITH DISCHARGE PLANNING / NEEDS. DCP- Discharge Planning Updated by [email or web address]: Ivy Varma on 09/29/18 4:[address] MELISSA SMITH, FAMILY MEMBER, WHO VISITED AT THE BEDSIDE TODAY REQUESTED THAT THE PATIENT BE PLACED CLOSE TO HOME WHEN STABLE FOR TRANSFER FOR REHAB SERVICES. SHE DESIRES FACILITY NEAR [place] OR [place]. SHE CAN BE REACHED AT [phone]. HER SISTER IS CRISSY SMITH AND CAN BE REACHED AT [phone]. DCP- Discharge Planning Updated by [email or web address]: Erin Ruiz on 09/24/18 5:[address] Late Entry - 09/24/18 @ 5030 Patient Name: DWAYNE SMITH Admission Status: ER Accout number: [id number] Admission Date: 08-27-2018 : 1965 Admission Diagnosis:SEPSIS, UNSPECIFIED ORGANISM Attending: LEON VELAZQUEZ Current LOS: 28 Anticipated DC Date: Planned Disposition: Home Primary Insurance: MEDICAID [place] Discharge Planning Comments: CM was able to speak with patient today she was off vent with pasmere valve in place. It was difficult to understand her but CM was able to get that she lived with a friend prior to admission and plans on returning there on discharge. Patient states she has a walker and home 02. CM will continue to follow and assist as needed with discharge planning / needs. Furniture Repair Technician: Erin Ruiz DCP- Discharge Planning Updated by [email or web address]: Erin Ruiz on 09/23/18 4:[address] [facility] will not accept patient d/t patient only having Medicaid as a payer source. [facility] has contacted LTACH facilities within the state and the ones that take valeria beds will not have any beds until after 1st of the year. CM will continue to assist with discharge planning / needs DCP- Discharge Planning Updated by [id number]: Erin Ruiz on 09/20/18 6:[address] CM attempted to visit with patient regarding discharge planning. Patient is alert but still on ventilator. Attempted to contact call contact number listed [phone]. NO Answer. NO family available.CM will continue to follow and assist as needed with discharge planning / needs. DCP- Discharge Planning Updated by [email or web address]: Erin Ruiz on 09/03/18 3:[address] Patient still sedated and on vent at this time. No family available to do discharge planning assessment. CM will continue to follow and assist as needed with discharge planning / needs. DCP- Discharge Planning Updated by [id number]: Sapna Steele on 09/01/18 9:[address] Patient Name: DWAYNE SMITH Admission Status: ER Accout number: [id number] Admission Date: 08-27-2018 : 1965 Admission Diagnosis: Attending: LEON VELAZQUEZ Current LOS: 5 Anticipated DC Date: Planned Disposition: Primary Insurance: MEDICAID [place] Discharge Planning Comments: PATIENT IS ON VENT. CALLED PHONE NUMBER LISTED ON HER CHART AND CHECKED THE WAITING ROOM FOR FAMILY. UNABLE TO GET IN TOUCH WITH FAMILY AT THIS TIME. I LEFT A MESSAGE ON THE PHONE, WAITING TO HEAR BACK. CM WILL FOLLOW AND ASSIST NEEDED WITH DC PLANNING NEEDS. Furniture Repair Technician: Sapna Steele DCPIA - Discharge Planning Initial Assessment Updated by [email or web address]: Pepito Hatch on 10/07/18 4:32 pm * Is the patient Alert and Oriented? Yes * How many steps to enter\exit or inside your home? * PCP MD in [place] * Pharmacy [facility] * Preadmission Environment Home with Family * ADLs Independent * Equipment Oxygen * Other Equipment walker * List name and contact numbers for known caregivers / representatives who currently or will assist patient after discharge: MELISSA, DAUGHTER, * Verbal permission to speak to the caregivers and representatives has been obtained from the patient. N/A * Community resources currently utilized None * Additional services required to return to the preadmission environment? No * Can the patient safely return to the preadmission environment? Yes * Has this patient been hospitalized within the prior 30 days at any hospital? No External Providers External Provider: [facility] Next Contact Date: 10/09/2018 Service Request Date: Service Type: Resolution: Reviewer: Comments: Coverage Notice Reviewer: [id number] - Pepito Hatch Notice Issued Date-Time: 10/07/2018 9:45 Notice Type: Patient Choice Letter Notice Delivered To: Patient Relationship to Patient: Spray Operator Name: Delivery Method: HAND - Hand Delivered Clarissa Days: Prior Verbal Notification: Recipient Understood Notice: Yes Recipient Signature: Yes Med Rec Note Co-signed by Attending: Coverage Notice Comment: LTC FERNIE Last DP export: 10/07/18 3:33 p Patient Name: DWAYNE SMITH Page 64382 at 1127 All edits/amendments must be made on the electronic document DICTATION DATE: 10/09/181126 OPERATOR CATALYST CONCENTRATION: ELEAZAR 10/09/181126 RPT#: [id number] DC DATE: STATUS: ADM IN [facility] [address] [place] [address] END OF REPORT
--- NOTE | ~2018-08-27 | MORECARE ---
CASE MANAGEMENT DISCHARGE SUMMARY PATIENT: DWAYNE SMITH UNIT: [id number] ADM DATE: 08/27/18 AGE: 53 : 67 SEX: F ROOM/BED: D.2313 AUTHOR: ZAK DURON PHYSICIAN: REFERRING PHYSICIAN: LEON VELAZQUEZ MD DATE OF SERVICE: 10/03/18 Discharge Plan Patient Name: DWAYNE SMITH Facility: [facility]:[place] : 1965 Planned Disposition: Home Anticipated Discharge Date: Discharge Date: Expected LOS: Initial Reviewer: [email or web address] Initial Review Date: 09/24/2018 Generated: 10/03/18 9:51 pm Comments DCP- Discharge Planning Updated by [id number]: Erin Ruiz on 10/03/18 7:[address] LATE ENTRY 10/03/18 @ 1630 CM MET WITH PATIENT. SHE DOESN'T WANT TO GO TO A [facility] FACILITY. SHE WANTS TO GO HOME WITH HOME HEALTH SERVICES. CM WILL CONTACT PATIENTS DAUGHTERS AND MAKE SURE THAT THEY ARE AVAILABLE TO ASSIST IN PATIENTS CARE. CM WILL CONTINUE TO FOLLOW AND ASSIST WITH DISCHARGE PLANNING / NEEDS. DCP- Discharge Planning Updated by [email or web address]: Ivy Varma on 09/29/18 4:[address] MELISSA SMITH, FAMILY MEMBER, WHO VISITED AT THE BEDSIDE TODAY REQUESTED THAT THE PATIENT BE PLACED CLOSE TO HOME WHEN STABLE FOR TRANSFER FOR REHAB SERVICES. SHE DESIRES FACILITY NEAR [facility]. SHE CAN BE REACHED AT [phone]. HER SISTER IS CRISSY SMITH AND CAN BE REACHED AT [phone]. DCP- Discharge Planning Updated by [email or web address]: Erin Ruiz on 09/24/18 5:[address] Late Entry - 09/24/18 @ 1230 Patient Name: DWAYNE SMITH Admission Status: ER Accout number: [id number] Admission Date: 08-27-2018 : 1965 Admission Diagnosis:SEPSIS, UNSPECIFIED ORGANISM Attending: LEON VELAZQUEZ Current LOS: 28 Anticipated DC Date: Planned Disposition: Home Primary Insurance: MEDICAID [place] Discharge Planning Comments: CM was able to speak with patient today she was off vent with pasmere valve in place. It was difficult to understand her but CM was able to get that she lived with a friend prior to admission and plans on returning there on discharge. Patient states she has a walker and home 02. CM will continue to follow and assist as needed with discharge planning / needs. Crocodile Farmer: Erin Ruiz DCP- Discharge Planning Updated by [id number]: Erin Ruiz on 09/23/18 4:[address] [facility] will not accept patient d/t patient only having Medicaid as a payer source. CM has contacted LTACH facilities within the state and the ones that take valeria beds will not have any beds until after 1st of the year. CM will continue to assist with discharge planning / needs DCP- Discharge Planning Updated by [email or web address]: Erin Ruiz on 09/20/18 6:[address] CM attempted to visit with patient regarding discharge planning. Patient is alert but still on ventilator. Attempted to contact call contact number listed [phone]. NO Answer. NO family available.CM will continue to follow and assist as needed with discharge planning / needs. DCP- Discharge Planning Updated by [email or web address]: Erin Ruiz on 09/03/18 3:[address] Patient still sedated and on vent at this time. No family available to do discharge planning assessment. CM will continue to follow and assist as needed with discharge planning / needs. DCP- Discharge Planning Updated by [email or web address]: Sapna Steele on 09/01/18 9:[address] Patient Name: DWAYNE SMITH Admission Status: ER Accout number: [id number] Admission Date: 08-27-2018 : 1965 Admission Diagnosis: Attending: LEON VELAZQUEZ Current LOS: 5 Anticipated DC Date: Planned Disposition: Primary Insurance: MEDICAID [place] Discharge Planning Comments: PATIENT IS ON VENT. CALLED PHONE NUMBER LISTED ON HER CHART AND CHECKED THE WAITING ROOM FOR FAMILY. UNABLE TO GET IN TOUCH WITH FAMILY AT THIS TIME. I LEFT A MESSAGE ON THE PHONE, WAITING TO HEAR BACK. CM WILL FOLLOW AND ASSIST NEEDED WITH DC PLANNING NEEDS. Crocodile Farmer: Sapna Steele DCPIA - Discharge Planning Initial Assessment Updated by [email or web address]: Erin Ruiz on 09/24/18 6:36 pm * Is the patient Alert and Oriented? Yes * How many steps to enter\exit or inside your home? * PCP in [place] * Pharmacy [facility] * Preadmission Environment Home with Family * ADLs Independent * Equipment Oxygen * Other Equipment walker * List name and contact numbers for known caregivers / representatives who currently or will assist patient after discharge: Melissa - daughter ? * Verbal permission to speak to the caregivers and representatives has been obtained from the patient. N/A * Community resources currently utilized None * Additional services required to return to the preadmission environment? No * Can the patient safely return to the preadmission environment? Yes * Has this patient been hospitalized within the prior 30 days at any hospital? No Last DP export: 09/29/18 4:18 Patient Name: DWAYNE SMITH Page 45982 at 2050 All edits/amendments must be made on the electronic document DICTATION DATE: 10/03/182050 EDITOR INDEX: ELEAZAR 10/03/182050 RPT#: [id number] [place] DATE: STATUS: ADM IN [facility] [address] [place] [address] END OF REPORT
--- NOTE | ~2018-08-27 | MORECARE ---
CASE MANAGEMENT DISCHARGE SUMMARY PATIENT: DWAYNE SMITH UNIT: [id number] ADM DATE: 08/27/18 AGE: 53 : 67 SEX: F ROOM/BED: D.2313 AUTHOR: ZAK DURON PHYSICIAN: REFERRING PHYSICIAN: LEON VELAZQUEZ MD DATE OF SERVICE: 09/03/18 Discharge Plan Patient Name: DWAYNE SMITH Facility: [facility]:[place] : 1965 Planned Disposition: Anticipated Discharge Date: Discharge Date: Expected LOS: Initial Reviewer: [email or web address] Initial Review Date: 08/27/2018 Generated: 09/03/18 4:10 pm Comments DCP- Discharge Planning Updated by [id number]: Erin Ruiz on 09/03/18 2:[address] Patient still sedated and on vent at this time. No family available to do discharge planning assessment. CM will continue to follow and assist as needed with discharge planning / needs. DCP- Discharge Planning Updated by [id number]: Sapna Steele on 09/01/18 8:[address] Patient Name: DWAYNE SMITH Admission Status: ER Accout number: [id number] Admission Date: 08-27-2018 : 1965 Admission Diagnosis: Attending: LEON VELAZQUEZ Current LOS: 5 Anticipated DC Date: Planned Disposition: Primary Insurance: MEDICAID [place] Discharge Planning Comments: PATIENT IS ON VENT. CALLED PHONE NUMBER LISTED ON HER CHART AND CHECKED THE WAITING ROOM FOR FAMILY. UNABLE TO GET IN TOUCH WITH FAMILY AT THIS TIME. I LEFT A MESSAGE ON THE PHONE, WAITING TO HEAR BACK. CM WILL FOLLOW AND ASSIST NEEDED WITH DC PLANNING NEEDS. Asbestos Remover: Sapna Steele Last DP export: 09/01/18 8:56 Patient Name: DWAYNE SMITH Page 32864 at 1510 All edits/amendments must be made on the electronic document DICTATION DATE: 09/03/18 1510 CHAR CONVEYOR TENDER: ELEAZAR 09/03/18 1510 RPT#: [id number] DC DATE: STATUS: ADM IN [place] [id number] [place] [id number] END OF REPORT
--- NOTE | ~2018-08-27 | MORECARE ---
CASE MANAGEMENT DISCHARGE SUMMARY PATIENT: DWAYNE SMITH UNIT: [id number] ADM DATE: 08/27/18 AGE: 53 : 67 SEX: F ROOM/BED: D.0 AUTHOR: OLIVERIO,DOC PHYSICIAN: REFERRING PHYSICIAN: LEON VELAZQUEZ MD DATE OF SERVICE: 10/09/18 Discharge Plan Patient Name: DWAYNE SMITH Facility: [facility]:[place] : 1965 Planned Disposition: Nursing Facility [facility] Cert Anticipated Discharge Date: 10/08/18 Discharge Date: Expected LOS: 42 Initial Reviewer: [id number] Initial Review Date: 09/24/2018 Generated: 10/09/18 12:34 pm Comments DCP- Discharge Planning Updated by [id number]: Pepito Hatch on 10/07/18 3:[address] Patient Name: DWAYNE SMITH Encounter No: [id number] : 1965 Primary Insurance: MEDICAID [place] Anticipated DC Date: 10-08-2018 Planned Disposition: Nursing Facility [facility] Cert External Planned Provider: [facility] IN [place], LONG TERM CARE MEDICAID BED DCP follow-up note: CM SPOKE TO PT IN ROOM REGARDING DISCHARGE PLANNING. PT INITIALLY REPORTS WANTING TO GO HOME WITH FAMILY ASSISTANCE, ASKED CM TO SPEAK TO HER DAUGHTER, MELISSA AT [phone]. CM SPOKE TO MELISSA IN PRESENCE OF PT VIA PHONE. MELISSA REPORTS THAT PT IS NOT SAFE TO RETURN HOME AND NEEDS [facility]ARIO WRITER CARE AT THE [facility] AGAIN. MELISSA WOULD LIKE REFERRAL FAXED TO [facility] WHERE PT HAS BEEN PLACED IN THE PAST AND THAT MELISSA WORKS AT. PT IN AGREEMENT WITH PLAN, CHOICE SIGNED. PT REPORTS HER FAMILY CAN TRANSPORT IF ACCEPTED AND THEY HAVE PORTABLE OXYGEN AT HOME FOR TRANSPORT. CM CALLED [facility], , SPOKE TO JOSE LUIS WHO KNOWS PT AND WILL EVALUATE FOR SCENARIO WRITER CARE. CM FAXED REFERRAL TO [facility] AT [phone]. CM WAITING ADMISSION DETERMINATION FOR PENITENTIARY CARE FROM [facility] IN [place], [place]. Pepito Hatch, CASE JESSICA DCP- Discharge Planning Updated by [id number]: Erin Ruiz on 10/03/18 7:[address] LATE ENTRY 10/03/18 @ 1630 CM MET WITH PATIENT. SHE DOESN'T WANT TO GO TO A [facility]RECTION FACILITY. SHE WANTS TO GO HOME WITH HOME HEALTH SERVICES. CM WILL CONTACT PATIENTS DAUGHTERS AND MAKE SURE THAT THEY ARE AVAILABLE TO ASSIST IN PATIENTS CARE. CM WILL CONTINUE TO FOLLOW AND ASSIST WITH DISCHARGE PLANNING / NEEDS. DCP- Discharge Planning Updated by [id number]: Ivy Varma on 09/29/18 4:[address] MELISSA SMITH, FAMILY MEMBER, WHO VISITED AT THE BEDSIDE TODAY REQUESTED THAT THE PATIENT BE PLACED CLOSE TO HOME WHEN STABLE FOR TRANSFER FOR REHAB SERVICES. SHE DESIRES FACILITY NEAR [place] OR [place]. SHE CAN BE REACHED AT [phone]. HER SISTER IS CRISSY SMITH AND CAN BE REACHED AT [phone]. DCP- Discharge Planning Updated by [email or web address]: Erin Ruiz on 09/24/18 5:[address] Late Entry - 09/24/18 @ 0965 Patient Name: DWAYNE SMITH Admission Status: ER Accout number: [id number] Admission Date: 08-27-2018 : 1965 Admission Diagnosis:SEPSIS, UNSPECIFIED ORGANISM Attending: LEON VELAZQUEZ Current LOS: 28 Anticipated DC Date: Planned Disposition: Home Primary Insurance: MEDICAID [place] Discharge Planning Comments: CM was able to speak with patient today she was off vent with pasmere valve in place. It was difficult to understand her but CM was able to get that she lived with a friend prior to admission and plans on returning there on discharge. Patient states she has a walker and home 02. CM will continue to follow and assist as needed with discharge planning / needs. Women'S Studies Professor: Erin Ruiz DCP- Discharge Planning Updated by [email or web address]: Erin Ruiz on 09/23/18 4:[address] [facility] will not accept patient d/t patient only having Medicaid as a payer source. [facility] has contacted LTACH facilities within the state and the ones that take valeria beds will not have any beds until after 1st of the year. CM will continue to assist with discharge planning / needs DCP- Discharge Planning Updated by [id number]: Erin Ruiz on 09/20/18 6:[address] CM attempted to visit with patient regarding discharge planning. Patient is alert but still on ventilator. Attempted to contact call contact number listed [phone]. NO Answer. NO family available.CM will continue to follow and assist as needed with discharge planning / needs. DCP- Discharge Planning Updated by [id number]: Erin Ruiz on 09/03/18 3:[address] Patient still sedated and on vent at this time. No family available to do discharge planning assessment. CM will continue to follow and assist as needed with discharge planning / needs. DCP- Discharge Planning Updated by [id number]: Sapna Steele on 09/01/18 9:[address] Patient Name: DWAYNE SMITH Admission Status: ER Accout number: [id number] Admission Date: 08-27-2018 : 1965 Admission Diagnosis: Attending: LEON VELAZQUEZ Current LOS: 5 Anticipated DC Date: Planned Disposition: Primary Insurance: MEDICAID [place] Discharge Planning Comments: PATIENT IS ON VENT. CALLED PHONE NUMBER LISTED ON HER CHART AND CHECKED THE WAITING ROOM FOR FAMILY. UNABLE TO GET IN TOUCH WITH FAMILY AT THIS TIME. I LEFT A MESSAGE ON THE PHONE, WAITING TO HEAR BACK. CM WILL FOLLOW AND ASSIST NEEDED WITH DC PLANNING NEEDS. Women'S Studies Professor: Sapna Steele DCPIA - Discharge Planning Initial Assessment Updated by [id number]: Pepito Hatch on 10/07/18 4:32 pm * Is the patient Alert and Oriented? Yes * How many steps to enter\exit or inside your home? * PCP MD in [place] * Pharmacy [facility] * Preadmission Environment Home with Family * ADLs Independent * Equipment Oxygen * Other Equipment walker * List name and contact numbers for known caregivers / representatives who currently or will assist patient after discharge: MELISSA, DAUGHTER, * Verbal permission to speak to the caregivers and representatives has been obtained from the patient. N/A * Community resources currently utilized None * Additional services required to return to the preadmission environment? No * Can the patient safely return to the preadmission environment? Yes * Has this patient been hospitalized within the prior 30 days at any hospital? No External Providers External Provider: OTHER-OTHER Next Contact Date: 10/10/2018 Service Request Date: Service Type: Resolution: Reviewer: Comments: External Provider: OTHER-OTHER Next Contact Date: 10/10/2018 Service Request Date: Service Type: Resolution: Reviewer: Comments: Coverage Notice Reviewer: [id number] - Pepito Hatch Notice Issued Date-Time: 10/07/2018 9:45 Notice Type: Patient Choice Letter Notice Delivered To: Patient Relationship to Patient: Services Manager Name: Delivery Method: HAND - Hand Delivered Clarissa Days: Prior Verbal Notification: Recipient Understood Notice: Yes Recipient Signature: Yes Med Rec Note Co-signed by Attending: Coverage Notice Comment: LTC FERNIE Last DP export: 10/09/18 10:27 a Patient Name: DWAYNE SMITH Page 28499 at 1134 All edits/amendments must be made on the electronic document DICTATION DATE: 10/09/18 113 CANDLE EXTRUSION MACHINE OPERATOR: ELEAZAR 10/09/18 113 RPT#: [id number] DC DATE: STATUS: ADM IN [facility] [address] [place] [address] END OF REPORT
--- NOTE | ~2018-08-27 | MORECARE ---
CASE MANAGEMENT DISCHARGE SUMMARY PATIENT: DWAYNE SMITH UNIT: [id number] ADM DATE: 08/27/18 AGE: 53 : 67 SEX: F ROOM/BED: D.2110 AUTHOR: OLIVERIO,DOC PHYSICIAN: REFERRING PHYSICIAN: LEON VELAZQUEZ MD DATE OF SERVICE: 10/09/18 Discharge Plan Patient Name: DWAYNE SMITH Facility: [facility]:[place] : 1965 Planned Disposition: Nursing Facility [facility] Cert Anticipated Discharge Date: 10/08/18 Discharge Date: Expected LOS: 42 Initial Reviewer: [id number] Initial Review Date: 09/24/2018 Generated: 10/09/18 2:07 pm Comments DCP- Discharge Planning Updated by [id number]: Pepito Hatch on 10/09/18 12:[address] Patient Name: DWAYNE SMITH Encounter No: [id number] : 1965 Primary Insurance: MEDICAID [place] Anticipated DC Date: 10-08-2018 Planned Disposition: Nursing Facility [facility] Cert External Planned Provider: FIRST ACCEPTING FACILITY FOR DIRECTOR FOOD SAFETY CARE MEDICAID BED DCP follow-up note: CM SPOKE TO PT IN ROOM WHO REPORTS THAT [facility] WILL NOT TAKE HER THEY WILL NOT TAKE SOMEONE WITH A TRACH. PT ASKED FOR REFERRALS TO BE SENT TO NURSING HOMES IN [place] AND [facility], CHOICE SIGNED. CM CALLED [facility] [place], , SPOKE TO GREGORIO WHO WILL REVIEW REFERRAL FOR DIRECTOR FOOD SAFETY CARE. CM FAXED REFERRAL TO [facility] [place], . CM CALLED [facility], , SPOKE TO CRISSY WHO REPORTS [facility] WILL REVIEW REFERRAL AND CALL CM BACK. CM FAXED REFERRAL TO [facility], . CM CALLED [facility] IN [facility], , SPOKE TO GREGORIO WHO WILL REVIEW REFERRAL FOR DIRECTOR FOOD SAFETY CARE. CM FAXED REFERRAL TO [facility] AT [phone]. CM WAITING ADMISSION DETERMINATIONS FROM [facility] [place], [place] FOR DIRECTOR FOOD SAFETY CARE. Pepito Hatch, CASE MANAGEMENT DCP- Discharge Planning Updated by [id number]: Pepito Hatch on 10/07/18 3:[address] Patient Name: DWAYNE SMITH Encounter No: [id number] : 1965 Primary Insurance: MEDICAID [place] Anticipated DC Date: 10-08-2018 Planned Disposition: Nursing Facility [facility] Cert External Planned Provider: [facility] CARE MEDICAID BED DCP follow-up note: CM SPOKE TO PT IN ROOM REGARDING DISCHARGE PLANNING. PT INITIALLY REPORTS WANTING TO GO HOME WITH FAMILY ASSISTANCE, ASKED CM TO SPEAK TO HER DAUGHTER, MELISSA AT [phone]. CM SPOKE TO MELISSA IN PRESENCE OF PT VIA PHONE. MELISSA REPORTS THAT PT IS NOT SAFE TO RETURN HOME AND NEEDS CARE HOME CARE AT THE [facility] AGAIN. MELISSA WOULD LIKE REFERRAL FAXED TO [facility] WHERE PT HAS BEEN PLACED IN THE PAST AND THAT MELISSA WORKS AT. PT IN AGREEMENT WITH PLAN, CHOICE SIGNED. PT REPORTS HER FAMILY CAN TRANSPORT IF ACCEPTED AND THEY HAVE PORTABLE OXYGEN AT HOME FOR TRANSPORT. CM CALLED [facility], , SPOKE TO JOSE LUIS WHO KNOWS PT AND WILL EVALUATE FOR CARE HOME CARE. CM FAXED REFERRAL TO [facility] AT [phone]. CM WAITING ADMISSION DETERMINATION FOR [facility]ARE [facility] CARE FROM [facility] IN [place], [place]. Pepito Hatch, CASE MANAGEMENT DCP- Discharge Planning Updated by [id number]: Erin Joseph on 10/03/18 7:[address] LATE ENTRY 10/03/18 @ 1630 CM MET WITH PATIENT. SHE DOESN'T WANT TO GO TO A [facility] FACILITY. SHE WANTS TO GO HOME WITH HOME HEALTH SERVICES. CM WILL CONTACT PATIENTS DAUGHTERS AND MAKE SURE THAT THEY ARE AVAILABLE TO ASSIST IN PATIENTS CARE. CM WILL CONTINUE TO FOLLOW AND ASSIST WITH DISCHARGE PLANNING / NEEDS. DCP- Discharge Planning Updated by [id number]: Ivy Varma on 09/29/18 4:[address] MELISSA SMITH, FAMILY MEMBER, WHO VISITED AT THE BEDSIDE TODAY REQUESTED THAT THE PATIENT BE PLACED CLOSE TO HOME WHEN STABLE FOR TRANSFER FOR REHAB SERVICES. SHE DESIRES FACILITY NEAR [place] OR [place]. SHE CAN BE REACHED AT [phone]. HER SISTER IS CRISSY SMITH AND CAN BE REACHED AT [phone]. DCP- Discharge Planning Updated by [id number]: Erin Ruiz on 09/24/18 5:[address] Late Entry - 09/24/18 @ 1230 Patient Name: DWAYNE SMITH Admission Status: ER Accout number: [id number] Admission Date: 08-27-2018 : 1965 Admission Diagnosis:SEPSIS, UNSPECIFIED ORGANISM Attending: LEON VELAZQUEZ Current LOS: 28 Anticipated DC Date: Planned Disposition: Home Primary Insurance: MEDICAID [place] Discharge Planning Comments: CM was able to speak with patient today she was off vent with pasmere valve in place. It was difficult to understand her but CM was able to get that she lived with a friend prior to admission and plans on returning there on discharge. Patient states she has a walker and home 02. CM will continue to follow and assist as needed with discharge planning / needs. Environmental Field Services Technician: Erin Ruiz DCP- Discharge Planning Updated by [id number]: Erin Ruiz on 09/23/18 4:[address] [facility] will not accept patient d/t patient only having Medicaid as a payer source. CM has contacted LTACH facilities within the state and the ones that take valeria beds will not have any beds until after of the year. CM will continue to assist with discharge planning / needs DCP- Discharge Planning Updated by [id number]: Erin Ruiz on 09/20/18 6:[address] CM attempted to visit with patient regarding discharge planning. Patient is alert but still on ventilator. Attempted to contact call contact number listed [phone]. NO Answer. NO family available.CM will continue to follow and assist as needed with discharge planning / needs. DCP- Discharge Planning Updated by [id number]: Erin Ruiz on 09/03/18 3:[address] Patient still sedated and on vent at this time. No family available to do discharge planning assessment. CM will continue to follow and assist as needed with discharge planning / needs. DCP- Discharge Planning Updated by [id number]: Sapna Steele on 09/01/18 9:[address] Patient Name: DWAYNE SMITH Admission Status: ER Accout number: [id number] Admission Date: 08-27-2018 : 1965 Admission Diagnosis: Attending: LEON VELAZQUEZ Current LOS: 5 Anticipated DC Date: Planned Disposition: Primary Insurance: MEDICAID [place] Discharge Planning Comments: PATIENT IS ON VENT. CALLED PHONE NUMBER LISTED ON HER CHART AND CHECKED THE WAITING ROOM FOR FAMILY. UNABLE TO GET IN TOUCH WITH FAMILY AT THIS TIME. I LEFT A MESSAGE ON THE PHONE, WAITING TO HEAR BACK. CM WILL FOLLOW AND ASSIST NEEDED WITH DC PLANNING NEEDS. Environmental Field Services Technician: Sapna Steele DCPIA - Discharge Planning Initial Assessment Updated by [email or web address]: Pepito Hatch on 10/07/18 4:32 pm * Is the patient Alert and Oriented? Yes * How many steps to enter\exit or inside your home? * PCP MD in [place] * Pharmacy [facility] * Preadmission Environment Home with Family * ADLs Independent * Equipment Oxygen * Other Equipment walker * List name and contact numbers for known caregivers / representatives who currently or will assist patient after discharge: MELISSA, DAUGHTER, * Verbal permission to speak to the caregivers and representatives has been obtained from the patient. N/A * Community resources currently utilized None * Additional services required to return to the preadmission environment? No * Can the patient safely return to the preadmission environment? Yes * Has this patient been hospitalized within the prior 30 days at any hospital? No Coverage Notice Reviewer: [id number] - Pepito Hatch Notice Issued Date-Time: 10/07/2018 9:45 Notice Type: Patient Choice Letter Notice Delivered To: Patient Relationship to Patient: Gearman Name: Delivery Method: HAND - Hand Delivered Clarissa Days: Prior Verbal Notification: Recipient Understood Notice: Yes Recipient Signature: Yes Med Rec Note Co-signed by Attending: Coverage Notice Comment: LTC FERNIE Last DP export: 10/09/18 11:59 a Patient Name: DWAYNE SMITH Page 95125 at 1307 All edits/amendments must be made on the electronic document DICTATION DATE: 10/09/18 1307 NOTE TELLER: ELEAZAR 10/09/18 1307 RPT#: [id number] DC DATE: STATUS: ADM IN [place] [address] [place] [address] END OF REPORT
--- NOTE | ~2018-08-27 | MORECARE ---
CASE MANAGEMENT DISCHARGE SUMMARY PATIENT: DWAYNE SMITH UNIT: [id number] ADM DATE: 08/27/18 AGE: 53 : 67 SEX: F ROOM/BED: D.2313 AUTHOR: OLIVERIO,DOC PHYSICIAN: REFERRING PHYSICIAN: LEON VELAZQUEZ MD DATE OF SERVICE: 09/29/18 Discharge Plan Patient Name: DWAYNE SMITH Facility: [facility]:[place] : 1965 Planned Disposition: Home Anticipated Discharge Date: Discharge Date: Expected LOS: Initial Reviewer: [id number] Initial Review Date: 09/24/2018 Generated: 09/29/18 6:18 pm Comments DCP- Discharge Planning Updated by [id number]: Ivy Varma on 09/29/18 4:[address] MELISSA SMITH, FAMILY MEMBER, WHO VISITED AT THE BEDSIDE TODAY REQUESTED THAT THE PATIENT BE PLACED CLOSE TO HOME WHEN STABLE FOR TRANSFER FOR REHAB SERVICES. SHE DESIRES FACILITY NEAR [facility]. SHE CAN BE REACHED AT [phone]. HER SISTER IS CRISSY SMITH AND CAN BE REACHED AT [phone]. DCP- Discharge Planning Updated by [id number]: Erin Ruiz on 09/24/18 5:[address] Late Entry - 09/24/18 @ 1230 Patient Name: DWAYNE SMITH Admission Status: ER Accout number: [id number] Admission Date: 08-27-2018 : 1965 Admission Diagnosis:SEPSIS, UNSPECIFIED ORGANISM Attending: LEON VELAZQUEZ Current LOS: 28 Anticipated DC Date: Planned Disposition: Home Primary Insurance: MEDICAID [place] Discharge Planning Comments: CM was able to speak with patient today she was off vent with pasmere valve in place. It was difficult to understand her but CM was able to get that she lived with a friend prior to admission and plans on returning there on discharge. Patient states she has a walker and home 02. CM will continue to follow and assist as needed with discharge planning / needs. Clinical Rehabilitation Specialist: Erin Ruiz DCP- Discharge Planning Updated by [email or web address]: Erin Ruiz on 09/23/18 4:[address] [facility] will not accept patient d/t patient only having Medicaid as a payer source. CM has contacted LTACH facilities within the state and the ones that take valeria beds will not have any beds until after of the year. CM will continue to assist with discharge planning / needs DCP- Discharge Planning Updated by [id number]: Erin Ruiz on 09/20/18 6:[address] CM attempted to visit with patient regarding discharge planning. Patient is alert but still on ventilator. Attempted to contact call contact number listed [phone]. NO Answer. NO family available.CM will continue to follow and assist as needed with discharge planning / needs. DCP- Discharge Planning Updated by [id number]: Erin Ruiz on 09/03/18 3:[address] Patient still sedated and on vent at this time. No family available to do discharge planning assessment. CM will continue to follow and assist as needed with discharge planning / needs. DCP- Discharge Planning Updated by [id number]: Sapna Steele on 09/01/18 9:[address] Patient Name: DWAYNE SMITH Admission Status: Accout number: [id number] Admission Date: 08-27-2018 : 1965 Admission Diagnosis: Attending: LEON VELAZQUEZ Current LOS: 5 Anticipated DC Date: Planned Disposition: Primary Insurance: MEDICAID [place] Discharge Planning Comments: PATIENT IS ON VENT. CALLED PHONE NUMBER LISTED ON HER CHART AND CHECKED THE WAITING ROOM FOR FAMILY. UNABLE TO GET IN TOUCH WITH FAMILY AT THIS TIME. I LEFT A MESSAGE ON THE PHONE, WAITING TO HEAR BACK. CM WILL FOLLOW AND ASSIST NEEDED WITH DC PLANNING NEEDS. Clinical Rehabilitation Specialist: Sapna Steele DCPIA - Discharge Planning Initial Assessment Updated by [id number]: Erin Ruiz on 09/24/18 6:36 pm * Is the patient Alert and Oriented? Yes * How many steps to enter\exit or inside your home? * PCP in [place] * Pharmacy [facility] * Preadmission Environment Home with Family * ADLs Independent * Equipment Oxygen * Other Equipment walker * List name and contact numbers for known caregivers / representatives who currently or will assist patient after discharge: Melissa - daughter ? * Verbal permission to speak to the caregivers and representatives has been obtained from the patient. N/A * Community resources currently utilized None * Additional services required to return to the preadmission environment? No * Can the patient safely return to the preadmission environment? Yes * Has this patient been hospitalized within the prior 30 days at any hospital? No Last DP export: 09/24/18 5:44 Patient Name: DWAYNE SMITH Page 23272 at 1718 All edits/amendments must be made on the electronic document DICTATION DATE: 09/29/181717 CREDIT CONTROL MANAGER: ELEAZAR 09/29/181717 RPT#: [id number] DC DATE: STATUS: ADM IN [facility] [address] [place] [address] END OF REPORT
--- NOTE | ~2018-08-27 | MORECARE ---
CASE MANAGEMENT DISCHARGE SUMMARY PATIENT: DWAYNE SMITH UNIT: [id number] ADM DATE: 08/27/18 AGE: 53 : 67 SEX: F ROOM/BED: D.0 AUTHOR: OLIVERIO,DOC PHYSICIAN: REFERRING PHYSICIAN: LEON VELAZQUEZ MD DATE OF SERVICE: 10/10/18 Discharge Plan Patient Name: DWAYNE SMITH Facility: [facility]:[place] : 1965 Planned Disposition: Nursing Facility [facility] Cert Anticipated Discharge Date: 10/10/18 Discharge Date: Expected LOS: 44 Initial Reviewer: [id number] Initial Review Date: 09/24/2018 Generated: 10/10/18 11:01 am Comments DCP- Discharge Planning Updated by [id number]: Pepito Hatch on 10/10/18 8:[address] Patient Name: DWAYNE SMITH Encounter No: [id number] : 1965 Primary Insurance: MEDICAID [place] Anticipated DC Date: 10-10-2018 Planned Disposition: Nursing Facility [facility] Cert External Planned Provider: [facility], LONG TERM CARE MEDICAID BED DCP follow-up note: CM RECEIVED DISCHARGE ORDER, SPOKE TO PT WHO IS IN AGREEMENT WITH DISCHARGE TODAY TO [facility]. CM FAXED DISCHARGE INFORMATION TO [facility], . NURSE REPORT TO BE CALLED TO [facility] IN [place], , ASSISTED VAN TO ACROBATIC RIGGER AT 1000 AM 10-10-18. Pepito Hatch, GERI LOPEZ DCP- Discharge Planning Updated by [id number]: Peptio Hatch on 10/09/18 4:[address] Patient Name: DWAYNE SMITH Encounter No: [id number] : 1965 Primary Insurance: MEDICAID [place] Anticipated DC Date: 10-10-2018 Planned Disposition: Nursing Facility [facility] Cert External Planned Provider: [facility], SENIOR CARE CARE MEDICAID BED DCP follow-up note: CM RECEIVED CALL FROM [facility] IN [place], , SPOKE TO GREGORIO WHO REPORTS THEY WILL ACCEPT PT FOR BATH DESIGN SALES CONSULTANT CARE TOMORROW, 10-10-18. VAN TO ACROBATIC RIGGER PT TOMORROW AT 1000 AM. CM NOTIFIED PT WHO IS IN AGREEMENT AND WILL NOTIFY HER DAUGHTER. BEDSIDE NURSE NOTIFIED. NURSE REPORT TO BE CALLED TO [facility] IN [place], , FAX DISCHARGE INFORMATION TO [facility], . ASSISTED VAN TO ACROBATIC RIGGER AT 1000 AM 10-10-18. GERI Johnson MANAGEMENT DCP- Discharge Planning Updated by [id number]: Pepito Hatch on 10/09/18 12:[address] Patient Name: DWAYNE SMITH Encounter No: [id number] : 1965 Primary Insurance: MED[place]ID [place] Anticipated DC Date: 10-08-2018 Planned Disposition: Nursing Facility [facility] Cert External Planned Provider: FIRST ACCEPTING FACILITY FOR BATH DESIGN SALES CONSULTANT CARE MEDICAID BED DCP follow-up note: CM SPOKE TO PT IN ROOM WHO REPORTS THAT [facility] WILL NOT TAKE HER THEY WILL NOT TAKE SOMEONE WITH A TRACH. PT ASKED FOR REFERRALS TO BE SENT TO NURSING HOM[facility] IN [place] AND [facility], CHOICE SIGNED. CM CALLED [facility] IN [place], , SPOKE TO GREGORIO WHO WILL REVIEW REFERRAL FOR BATH DESIGN SALES CONSULTANT CARE. CM FAXED REFERRAL TO [facility] IN [place], . CM CALLED [place] [facility], , SPOKE TO CRISSY WHO REPORTS [facility] WILL REVIEW REFERRAL AND CALL CM BACK. CM FAXED REFERRAL TO [facility], . CM CALLED [facility], , SPOKE TO GREGORIO WHO WILL REVIEW REFERRAL FOR BATH DESIGN SALES CONSULTANT CARE. CM FAXED REFERRAL TO [facility] AT [phone]. CM WAITING ADMISSION DETERMINATIONS FROM [facility] IN [place], [place] [facility] FOR SENIOR CARE CARE. GERI Johnson MANAGEMENT DCP- Discharge Planning Updated by [id number]: Pepito Hatch on 10/07/18 3:[address] Patient Name: DWAYNE SMITH Encounter No: [id number] : 1965 Primary Insurance: MED[place]ID [place] Anticipated DC Date: 10-08-2018 Planned Disposition: Nursing Facility [facility] Cert External Planned Provider: [facility] TERM CARE MEDICAID BED DCP follow-up note: CM SPOKE TO PT IN ROOM REGARDING DISCHARGE PLANNING. PT INITIALLY REPORTS WANTING TO GO HOME WITH FAMILY ASSISTANCE, ASKED CM TO SPEAK TO HER DAUGHTER, MELISSA AT [phone]. CM SPOKE TO MELISSA IN PRESENCE OF PT VIA PHONE. MELISSA REPORTS THAT PT IS NOT SAFE TO RETURN HOME AND NEEDS BATH DESIGN SALES CONSULTANT CARE AT THE ASSISTED AGAIN. MELISSA WOULD LIKE REFERRAL FAXED TO [facility] WHERE PT HAS BEEN PLACED IN THE PAST AND THAT MELISSA WORKS AT. PT IN AGREEMENT WITH PLAN, CHOICE SIGNED. PT REPORTS HER FAMILY CAN TRANSPORT IF ACCEPTED AND THEY HAVE PORTABLE OXYGEN AT HOME FOR TRANSPORT. CM CALLED [facility], , SPOKE TO JOSE LUIS WHO KNOWS PT AND WILL EVALUATE FOR BATH DESIGN SALES CONSULTANT CARE. CM FAXED REFERRAL TO [facility] AT [phone]. CM WAITING ADMISSION DETERMINATION FOR BATH DESIGN SALES CONSULTANT CARE FROM [facility] IN [place], [place]. Pepito Hatch, CASE MANAGEMENT DCP- Discharge Planning Updated by [id number]: Erin Ruiz on 10/03/18 7:[address] LATE ENTRY 10/03/18 @ 1630 CM MET WITH PATIENT. SHE DOESN'T WANT TO GO TO A ASSISTED FACILITY. SHE WANTS TO GO HOME WITH HOME HEALTH SERVICES. CM WILL CONTACT PATIENTS DAUGHTERS AND MAKE SURE THAT THEY ARE AVAILABLE TO ASSIST IN PATIENTS CARE. CM WILL CONTINUE TO FOLLOW AND ASSIST WITH DISCHARGE PLANNING / NEEDS. DCP- Discharge Planning Updated by [id number]: Ivy Varma on 09/29/18 4:[address] MELISSA SMITH, FAMILY MEMBER, WHO VISITED AT THE BEDSIDE TODAY REQUESTED THAT THE PATIENT BE PLACED CLOSE TO HOME WHEN STABLE FOR TRANSFER FOR REHAB SERVICES. SHE DESIRES FACILITY NEAR [place] OR [place]. SHE CAN BE REACHED AT [phone]. HER SISTER IS CRISSY SMITH AND CAN BE REACHED AT [phone]. DCP- Discharge Planning Updated by [id number]: Erin Ruiz on 09/24/18 5:[address] Late Entry - 09/24/18 @ 1230 Patient Name: DWAYNE SMITH Admission Status: ER Accout number: [id number] Admission Date: 08-27-2018 : 1965 Admission Diagnosis:SEPSIS, UNSPECIFIED ORGANISM Attending: LEON VELAZQUEZ Current LOS: 28 Anticipated DC Date: Planned Disposition: Home Primary Insurance: MEDICAID [place] Discharge Planning Comments: CM was able to speak with patient today she was off vent with pasmere valve in place. It was difficult to understand her but CM was able to get that she lived with a friend prior to admission and plans on returning there on discharge. Patient states she has a walker and home 02. CM will continue to follow and assist as needed with discharge planning / needs. Small Electric Engine Technician: Erin Ruiz DCP- Discharge Planning Updated by [id number]: Erin Ruiz on 09/23/18 4:[address] [facility] will not accept patient d/t patient only having Medicaid as a payer source. CM has contacted LTACH facilities within the [facility] and the ones that take valeria beds will not have any beds until after of the year. CM will continue to assist with discharge planning / needs DCP- Discharge Planning Updated by [id number]: Erin Ruiz on 09/20/18 6:[address] CM attempted to visit with patient regarding discharge planning. Patient is alert but still on ventilator. Attempted to contact call contact number listed [phone]. NO Answer. NO family available.CM will continue to follow and assist as needed with discharge planning / needs. DCP- Discharge Planning Updated by [id number]: Erin Ruiz on 09/03/18 3:[address] Patient still sedated and on vent at this time. No family available to do discharge planning assessment. CM will continue to follow and assist as needed with discharge planning / needs. DCP- Discharge Planning Updated by [id number]: Sapna Steele on 09/01/18 9:[address] Patient Name: DWAYNE SMITH Admission Status: ER Accout number: [id number] Admission Date: 08-27-2018 : 1965 Admission Diagnosis: Attending: LEON VELAZQUEZ Current LOS: 5 Anticipated DC Date: Planned Disposition: Primary Insurance: MEDICAID [place] Discharge Planning Comments: PATIENT IS ON VENT. CALLED PHONE NUMBER LISTED ON HER CHART AND CHECKED THE WAITING ROOM FOR FAMILY. UNABLE TO GET IN TOUCH WITH FAMILY AT THIS TIME. I LEFT A MESSAGE ON THE PHONE, WAITING TO HEAR BACK. CM WILL FOLLOW AND ASSIST NEEDED WITH DC PLANNING NEEDS. Small Electric Engine Technician: Sapna Steele DCPIA - Discharge Planning Initial Assessment Updated by [id number]: Pepito Hatch on 10/07/18 4:32 pm * Is the patient Alert and Oriented? Yes * How many steps to enter\exit or inside your home? * PCP MD in [place] * Pharmacy [facility] * Preadmission Environment Home with Family * ADLs Independent * Equipment Oxygen * Other Equipment walker * List name and contact numbers for known caregivers / representatives who currently or will assist patient after discharge: MELISSA, DAUGHTER, * Verbal permission to speak to the caregivers and representatives has been obtained from the patient. N/A * Community resources currently utilized None * Additional services required to return to the preadmission environment? No * Can the patient safely return to the preadmission environment? Yes * Has this patient been hospitalized within the prior 30 days at any hospital? No Coverage Notice Reviewer: [id number] - Pepito Hatch Notice Issued Date-Time: 10/07/2018 9:45 Notice Type: Patient Choice Letter Notice Delivered To: Patient Relationship to Patient: Bar Useful Or Busser Name: Delivery Method: HAND - Hand Delivered Clarissa Days: Prior Verbal Notification: Recipient Understood Notice: Yes Recipient Signature: Yes Med Rec Note Co-signed by Attending: Coverage Notice Comment: LTC FERNIE Last DP export: 10/10/18 8:40 a Patient Name: DWAYNE SMITH Page 12302 at 1001 All edits/amendments must be made on the electronic document DICTATION DATE: 10/10/18 1000 LATHING SUPERVISOR: ELEAZAR 10/10/18 1000 RPT#: [id number] DC DATE: STATUS: ADM IN [facility] [address] [place] [address] END OF REPORT
--- NOTE | ~2018-08-27 | MORECARE ---
CASE MANAGEMENT DISCHARGE SUMMARY PATIENT: DWAYNE SMITH UNIT: [id number] ADM DATE: 08/27/18 AGE: 53 : 67 SEX: F ROOM/BED: D.2110 AUTHOR: ZAK DURON PHYSICIAN: REFERRING PHYSICIAN: LEON VELAZQUEZ MD DATE OF SERVICE: 10/07/18 Discharge Plan Patient Name: DWAYNE SMITH Facility: [facility]:[place] : 1965 Planned Disposition: Nursing Facility [facility] Cert Anticipated Discharge Date: 10/08/18 Discharge Date: Expected LOS: 42 Initial Reviewer: [id number] Initial Review Date: 09/24/2018 Generated: 10/07/18 5:18 pm Comments DCP- Discharge Planning Updated by [id number]: Erin Ruiz on 10/03/18 7:[address] LATE ENTRY 10/03/18 @ 1630 CM MET WITH PATIENT. SHE DOESN'T WANT TO GO TO A GROUP HOME FACILITY. SHE WANTS TO GO HOME WITH HOME HEALTH SERVICES. CM WILL CONTACT PATIENTS DAUGHTERS AND MAKE SURE THAT THEY ARE AVAILABLE TO ASSIST IN PATIENTS CARE. CM WILL CONTINUE TO FOLLOW AND ASSIST WITH DISCHARGE PLANNING / NEEDS. DCP- Discharge Planning Updated by [id number]: Ivy Varma on 09/29/18 4:[address] MELISSA SMITH, FAMILY MEMBER, WHO VISITED AT THE BEDSIDE TODAY REQUESTED THAT THE PATIENT BE PLACED CLOSE TO HOME WHEN STABLE FOR TRANSFER FOR REHAB SERVICES. SHE DESIRES FACILITY NEAR [facility] [place]. SHE CAN BE REACHED AT [phone]. HER SISTER IS CRISSY SMITH AND CAN BE REACHED AT [phone]. DCP- Discharge Planning Updated by [id number]: Erin Ruiz on 09/24/18 5:[address] Late Entry - 09/24/18 @ 1230 Patient Name: DWAYNE SMITH Admission Status: ER Accout number: [id number] Admission Date: 08-27-2018 : 1965 Admission Diagnosis:SEPSIS, UNSPECIFIED ORGANISM Attending: LEON VELAZQUEZ Current LOS: 28 Anticipated DC Date: Planned Disposition: Home Primary Insurance: MEDICAID [place] Discharge Planning Comments: CM was able to speak with patient today she was off vent with pasmere valve in place. It was difficult to understand her but CM was able to get that she lived with a friend prior to admission and plans on returning there on discharge. Patient states she has a walker and home 02. CM will continue to follow and assist as needed with discharge planning / needs. Supervisor Rolling Room: Erin Ruiz DCP- Discharge Planning Updated by [id number]: Erin Ruiz on 09/23/18 4:[address] [facility] will not accept patient d/t patient only having Medicaid as a payer source. CM has contacted LTACH facilities within the state and the ones that take valeria beds will not have any beds until after of the year. CM will continue to assist with discharge planning / needs DCP- Discharge Planning Updated by [id number]: Erin Ruiz on 09/20/18 6:[address] CM attempted to visit with patient regarding discharge planning. Patient is alert but still on ventilator. Attempted to contact call contact number listed [phone]. NO Answer. NO family available.CM will continue to follow and assist as needed with discharge planning / needs. DCP- Discharge Planning Updated by [id number]: Erin Ruiz on 09/03/18 3:[address] Patient still sedated and on vent at this time. No family available to do discharge planning assessment. CM will continue to follow and assist as needed with discharge planning / needs. DCP- Discharge Planning Updated by [id number]: Sapna Steele on 09/01/18 9:[address] Patient Name: DWAYNE SMITH Admission Status: ER Accout number: [id number] Admission Date: 08-27-2018 : 1965 Admission Diagnosis: Attending: LEON VELAZQUEZ Current LOS: 5 Anticipated DC Date: Planned Disposition: Primary Insurance: MEDICAID [place] Discharge Planning Comments: PATIENT IS ON VENT. CALLED PHONE NUMBER LISTED ON HER CHART AND CHECKED THE WAITING ROOM FOR FAMILY. UNABLE TO GET IN TOUCH WITH FAMILY AT THIS TIME. I LEFT A MESSAGE ON THE PHONE, WAITING TO HEAR BACK. CM WILL FOLLOW AND ASSIST NEEDED WITH DC PLANNING NEEDS. Supervisor Rolling Room: Sapna Steele DCPIA - Discharge Planning Initial Assessment Updated by [id number]: Erin Ruiz on 09/24/18 6:36 pm * Is the patient Alert and Oriented? Yes * How many steps to enter\exit or inside your home? * PCP in [place] * Pharmacy [facility] * Preadmission Environment Home with Family * ADLs Independent * Equipment Oxygen * Other Equipment walker * List name and contact numbers for known caregivers / representatives who currently or will assist patient after discharge: Melissa - daughter ? * Verbal permission to speak to the caregivers and representatives has been obtained from the patient. N/A * Community resources currently utilized None * Additional services required to return to the preadmission environment? No * Can the patient safely return to the preadmission environment? Yes * Has this patient been hospitalized within the prior 30 days at any hospital? No External Providers External Provider: OTHER-OTHER Next Contact Date: 10/08/2018 Service Request Date: Service Type: Resolution: Reviewer: Comments: Last DP export: 10/03/18 7:51 Patient Name: DWAYNE SMITH Page 91217 at 1618 All edits/amendments must be made on the electronic document DICTATION DATE: 10/07/181617 HIDE WORKER: ELEAZAR 10/07/181617 RPT#: [id number] DC DATE: STATUS: ADM IN [facility] [address] [place] [address] END OF REPORT
--- NOTE | ~2018-08-27 | MORECARE ---
CASE MANAGEMENT DISCHARGE SUMMARY PATIENT: DWAYNE SMITH UNIT: [id number] ADM DATE: 08/27/18 AGE: 53 : 67 SEX: F ROOM/BED: D.0 AUTHOR: OLIVERIO,DOC PHYSICIAN: REFERRING PHYSICIAN: LEON VELAZQUEZ MD DATE OF SERVICE: 10/09/18 Discharge Plan Patient Name: DWAYNE SMITH Facility: [facility]:[place] : 1965 Planned Disposition: Nursing Facility [facility] Cert Anticipated Discharge Date: 10/08/18 Discharge Date: Expected LOS: 42 Initial Reviewer: [id number] Initial Review Date: 09/24/2018 Generated: 10/09/18 1:59 pm Comments DCP- Discharge Planning Updated by [id number]: Pepito Hatch on 10/07/18 3:[address] Patient Name: DWAYNE SMITH Encounter No: [id number] : 1965 Primary Insurance: MEDICAID [place] Anticipated DC Date: 10-08-2018 Planned Disposition: Nursing Facility [facility] Cert External Planned Provider: [facility] IN [place], LONG TERM CARE MEDICAID BED DCP follow-up note: CM SPOKE TO PT IN ROOM REGARDING DISCHARGE PLANNING. PT INITIALLY REPORTS WANTING TO GO HOME WITH FAMILY ASSISTANCE, ASKED CM TO SPEAK TO HER DAUGHTER, MELISSA AT [phone]. CM SPOKE TO MELISSA IN PRESENCE OF PT VIA PHONE. MELISSA REPORTS THAT PT IS NOT SAFE TO RETURN HOME AND NEEDS DIRECTOR OF DIETARY CARE AT THE SNF AGAIN. MELISSA WOULD LIKE REFERRAL FAXED TO [facility] WHERE PT HAS BEEN PLACED IN THE PAST AND THAT MELISSA WORKS AT. PT IN AGREEMENT WITH PLAN, CHOICE SIGNED. PT REPORTS HER FAMILY CAN TRANSPORT IF ACCEPTED AND THEY HAVE PORTABLE OXYGEN AT HOME FOR TRANSPORT. CM CALLED [facility], , SPOKE TO JOSE LUIS WHO KNOWS PT AND WILL EVALUATE FOR DIRECTOR OF DIETARY CARE. CM FAXED REFERRAL TO [facility] AT [phone]. CM WAITING ADMISSION DETERMINATION FOR DIRECTOR OF DIETARY CARE FROM [facility] IN [place], [place]. Pepito Hatch, CASE JESSICA DCP- Discharge Planning Updated by [id number]: Erin Ruiz on 10/03/18 7:[address] LATE ENTRY 10/03/18 @ 1630 CM MET WITH PATIENT. SHE DOESN'T WANT TO GO TO A SNF FACILITY. SHE WANTS TO GO HOME WITH HOME HEALTH SERVICES. CM WILL CONTACT PATIENTS DAUGHTERS AND MAKE SURE THAT THEY ARE AVAILABLE TO ASSIST IN PATIENTS CARE. CM WILL CONTINUE TO FOLLOW AND ASSIST WITH DISCHARGE PLANNING / NEEDS. DCP- Discharge Planning Updated by [id number]: Ivy Varma on 09/29/18 4:[address] MELISSA SMITH, FAMILY MEMBER, WHO VISITED AT THE BEDSIDE TODAY REQUESTED THAT THE PATIENT BE PLACED CLOSE TO HOME WHEN STABLE FOR TRANSFER FOR REHAB SERVICES. SHE DESIRES FACILITY NEAR [place] OR [place]. SHE CAN BE REACHED AT [phone]. HER SISTER IS CRISSY SMITH AND CAN BE REACHED AT [phone]. DCP- Discharge Planning Updated by [id number]: Erin Ruiz on 09/24/18 5:[address] Late Entry - 09/24/18 @ 8970 Patient Name: DWAYNE SMITH Admission Status: ER Accout number: [id number] Admission Date: 08-27-2018 : 1965 Admission Diagnosis:SEPSIS, UNSPECIFIED ORGANISM Attending: LEON VELAZQUEZ Current LOS: 28 Anticipated DC Date: Planned Disposition: Home Primary Insurance: MED[place]ID [place] Discharge Planning Comments: CM was able to speak with patient today she was off vent with pasmere valve in place. It was difficult to understand her but CM was able to get that she lived with a friend prior to admission and plans on returning there on discharge. Patient states she has a walker and home 02. CM will continue to follow and assist as needed with discharge planning / needs. Telephone Maintenance Mechanic: Erin Ruiz DCP- Discharge Planning Updated by [id number]: Erin Ruiz on 09/23/18 4:[address] [facility] will not accept patient d/t patient only having Medicaid as a payer source. [facility] has contacted LTACH facilities within the state and the ones that take valeria beds will not have any beds until after 1st of the year. CM will continue to assist with discharge planning / needs DCP- Discharge Planning Updated by [id number]: Erin Ruiz on 09/20/18 6:[address] CM attempted to visit with patient regarding discharge planning. Patient is alert but still on ventilator. Attempted to contact call contact number listed [phone]. NO Answer. NO family available.CM will continue to follow and assist as needed with discharge planning / needs. DCP- Discharge Planning Updated by [id number]: Erin Ruiz on 09/03/18 3:[address] Patient still sedated and on vent at this time. No family available to do discharge planning assessment. CM will continue to follow and assist as needed with discharge planning / needs. DCP- Discharge Planning Updated by [id number]: Sapna Steele on 09/01/18 9:[address] Patient Name: DWAYNE SMITH Admission Status: ER Accout number: [id number] Admission Date: 08-27-2018 : 1965 Admission Diagnosis: Attending: LEON VELAZQUEZ Current LOS: 5 Anticipated DC Date: Planned Disposition: Primary Insurance: MEDICAID [place] Discharge Planning Comments: PATIENT IS ON VENT. CALLED PHONE NUMBER LISTED ON HER CHART AND CHECKED THE WAITING ROOM FOR FAMILY. UNABLE TO GET IN TOUCH WITH FAMILY AT THIS TIME. I LEFT A MESSAGE ON THE PHONE, WAITING TO HEAR BACK. CM WILL FOLLOW AND ASSIST NEEDED WITH DC PLANNING NEEDS. Telephone Maintenance Mechanic: Sapna Steele DCPIA - Discharge Planning Initial Assessment Updated by [id number]: Pepito Hatch on 10/07/18 4:32 pm * Is the patient Alert and Oriented? Yes * How many steps to enter\exit or inside your home? * PCP MD in [place] * Pharmacy [facility] * Preadmission Environment Home with Family * ADLs Independent * Equipment Oxygen * Other Equipment walker * List name and contact numbers for known caregivers / representatives who currently or will assist patient after discharge: MELISSA, DAUGHTER, * Verbal permission to speak to the caregivers and representatives has been obtained from the patient. N/A * Community resources currently utilized None * Additional services required to return to the preadmission environment? No * Can the patient safely return to the preadmission environment? Yes * Has this patient been hospitalized within the prior 30 days at any hospital? No Coverage Notice Reviewer: [id number] - Pepito Hatch Notice Issued Date-Time: 10/07/2018 9:45 Notice Type: Patient Choice Letter Notice Delivered To: Patient Relationship to Patient: Home Help Aide Name: Delivery Method: HAND - Hand Delivered Clarissa Days: Prior Verbal Notification: Recipient Understood Notice: Yes Recipient Signature: Yes Med Rec Note Co-signed by Attending: Coverage Notice Comment: LTC FERNIE Last DP export: 10/09/18 10:34 a Patient Name: DWAYNE SMITH Page 41857 at 1259 All edits/amendments must be made on the electronic document DICTATION DATE: 10/09/181257 MARINE DIVER: ELEAZAR 10/09/18 1258 RPT#: [id number] DC DATE: STATUS: ADM IN [facility] [address] [place] [address] END OF REPORT
--- NOTE | ~2018-08-27 | MORECARE ---
CASE MANAGEMENT DISCHARGE SUMMARY PATIENT: DWAYNE SMITH UNIT: [id number] ADM DATE: 08/27/18 AGE: 53 : 67 SEX: F ROOM/BED: D.2313 AUTHOR: OLIVERIO,DOC PHYSICIAN: REFERRING PHYSICIAN: LEON VELAZQUEZ MD DATE OF SERVICE: 09/24/18 Discharge Plan Patient Name: DWAYNE SMITH Facility: [facility]:[place] : 1965 Planned Disposition: Home Anticipated Discharge Date: Discharge Date: Expected LOS: Initial Reviewer: [id number] Initial Review Date: 09/24/2018 Generated: 09/24/18 7:38 pm Comments DCP- Discharge Planning Updated by [id number]: Erin Ruiz on 09/23/18 4:[address] [facility] will not accept patient d/t patient only having Medicaid as a payer source. CM has contacted LTACH facilities within the [facility] and the ones that take [facility] beds will not have any beds until after of the year. CM will continue to assist with discharge planning / needs DCP- Discharge Planning Updated by [id number]: Erin Ruiz on 09/20/18 6:[address] CM attempted to visit with patient regarding discharge planning. Patient is alert but still on ventilator. Attempted to contact call contact number listed [phone]. NO Answer. NO family available.CM will continue to follow and assist as needed with discharge planning / needs. DCP- Discharge Planning Updated by [id number]: Erin Ruiz on 09/03/18 3:[address] Patient still sedated and on vent at this time. No family available to do discharge planning assessment. CM will continue to follow and assist as needed with discharge planning / needs. DCP- Discharge Planning Updated by [id number]: Sapna Steele on 09/01/18 9:[address] Patient Name: DWAYNE SMITH Admission Status: ER Accout number: [id number] Admission Date: 08-27-2018 : 1965 Admission Diagnosis: Attending: LEON VELAZQUEZ Current LOS: 5 Anticipated DC Date: Planned Disposition: Primary Insurance: MEDICAID [place] Discharge Planning Comments: PATIENT IS ON VENT. CALLED PHONE NUMBER LISTED ON HER CHART AND CHECKED THE WAITING ROOM FOR FAMILY. UNABLE TO GET IN TOUCH WITH FAMILY AT THIS TIME. I LEFT A MESSAGE ON THE PHONE, WAITING TO HEAR BACK. CM WILL FOLLOW AND ASSIST NEEDED WITH DC PLANNING NEEDS. Wireworker: Sapna Steele DCPIA - Discharge Planning Initial Assessment Updated by [id number]: Erin Ruiz on 09/24/18 6:36 pm * Is the patient Alert and Oriented? Yes * How many steps to enter\exit or inside your home? * PCP in [place] * Pharmacy [facility] * Preadmission Environment Home with Family * ADLs Independent * Equipment Oxygen * Other Equipment walker * List name and contact numbers for known caregivers / representatives who currently or will assist patient after discharge: Monalisa - daughter ? * Verbal permission to speak to the caregivers and representatives has been obtained from the patient. N/A * Community resources currently utilized None * Additional services required to return to the preadmission environment? No * Can the patient safely return to the preadmission environment? Yes * Has this patient been hospitalized within the prior 30 days at any hospital? No Last DP export: 09/23/18 4:51 Patient Name: DWAYNE SMITH Page 15946 at 1838 All edits/amendments must be made on the electronic document DICTATION DATE: 09/24/181836 CHANGE MANAGEMENT DIRECTOR: ELEAZAR 09/24/181836 RPT#: [id number] DC DATE: STATUS: ADM IN [facility] [address] [place] [address] END OF REPORT
--- NOTE | ~2018-08-27 | MORECARE ---
CASE MANAGEMENT DISCHARGE SUMMARY PATIENT: DWAYNE SMITH UNIT: [id number] ADM DATE: 08/27/18 AGE: 53 : 67 SEX: F ROOM/BED: D.0 AUTHOR: OLIVERIO,DOC PHYSICIAN: REFERRING PHYSICIAN: LEON VELAZQUEZ MD DATE OF SERVICE: 10/10/18 Discharge Plan Patient Name: DWAYNE SMITH Facility: [facility]:[place] : 1965 Planned Disposition: Nursing Facility [facility] Cert Anticipated Discharge Date: 10/10/18 Discharge Date: Expected LOS: 44 Initial Reviewer: [id number] Initial Review Date: 09/24/2018 Generated: 10/10/18 10:39 am Comments DCP- Discharge Planning Updated by [email or web address]: Pepito Hatch on 10/09/18 4:[address] Patient Name: DWAYNE SMITH Encounter No: [id number] : 1965 Primary Insurance: MEDICAID [place] Anticipated DC Date: 10-10-2018 Planned Disposition: Nursing Facility [facility] Cert External Planned Provider: [facility], COLLECTION ADMINISTRATOR CARE MEDICAID BED DCP follow-up note: CM RECEIVED CALL FROM [facility] IN [place], , SPOKE TO GREGORIO WHO REPORTS THEY WILL ACCEPT PT FOR COLLECTION ADMINISTRATOR CARE TOMORROW, 10-10-18. VAN TO CLERK SUPERVISOR PT TOMORROW AT 1000 AM. CM NOTIFIED PT WHO IS IN AGREEMENT AND WILL NOTIFY HER DAUGHTER. BEDSIDE NURSE NOTIFIED. NURSE REPORT TO BE CALLED TO [facility] IN [place], , FAX DISCHARGE INFORMATION TO [facility], . ASSISTED VAN TO CLERK SUPERVISOR AT 1000 AM 10-10-18. Pepito Hatch, CASE MANAGEMENT DCP- Discharge Planning Updated by [id number]: Pepito Hatch on 10/09/18 12:[address] Patient Name: DWAYNE SMITH Encounter No: [id number] : 1965 Primary Insurance: MEDICAID [place] Anticipated DC Date: 10-08-2018 Planned Disposition: Nursing Facility [facility] Cert External Planned Provider: FIRST ACCEPTING FACILITY FOR COLLECTION ADMINISTRATOR CARE MEDICAID BED DCP follow-up note: CM SPOKE TO PT IN ROOM WHO REPORTS THAT [facility] WILL NOT TAKE HER THEY WILL NOT TAKE SOMEONE WITH A TRACH. PT ASKED FOR REFERRALS TO BE SENT TO NURSING HOMES IN [place] AND [facility], CHOICE SIGNED. CM CALLED [facility] [place], , SPOKE TO GREGORIO WHO WILL REVIEW REFERRAL FOR USP CARE. CM FAXED REFERRAL TO [facility] [place], . CM CALLED [facility], , SPOKE TO CRISSY WHO REPORTS PB WILL REVIEW REFERRAL AND CALL CM BACK. CM FAXED REFERRAL TO [facility], . CM CALLED [facility], , SPOKE TO GREGORIO WHO WILL REVIEW REFERRAL FOR USP CARE. CM FAXED REFERRAL TO [facility] AT [phone]. CM WAITING ADMISSION DETERMINATIONS FROM [facility] IN [place], [facility] FOR COLLECTION ADMINISTRATOR CARE. Pepito Hatch, CASE MANAGEMENT DCP- Discharge Planning Updated by [id number]: Pepito Hatch on 10/07/18 3:[address] Patient Name: DWAYNE SMITH Encounter No: [id number] : 1965 Primary Insurance: MEDICAID [facility] Date: 10-08-2018 Planned Disposition: Nursing Facility [facility] Cert External Planned Provider: [facility] TERM CARE MEDICAID BED DCP follow-up note: CM SPOKE TO PT IN ROOM REGARDING DISCHARGE PLANNING. PT INITIALLY REPORTS WANTING TO GO HOME WITH FAMILY ASSISTANCE, ASKED CM TO SPEAK TO HER DAUGHTER, MELISSA AT [phone]. CM SPOKE TO MELISSA IN PRESENCE OF PT VIA PHONE. MELISSA REPORTS THAT PT IS NOT SAFE TO RETURN HOME AND NEEDS COLLECTION ADMINISTRATOR CARE AT THE ASSISTED AGAIN. MELISSA WOULD LIKE REFERRAL FAXED TO [facility] WHERE PT HAS BEEN PLACED IN THE PAST AND THAT MELISSA WORKS AT. PT IN AGREEMENT WITH PLAN, QUETA SIGNED. PT REPORTS HER FAMILY CAN TRANSPORT IF ACCEPTED AND THEY HAVE PORTABLE OXYGEN AT HOME FOR TRANSPORT. CM CALLED [facility], , SPOKE TO JOSE LUIS WHO KNOWS PT AND WILL EVALUATE FOR USP CARE. CM FAXED REFERRAL TO [facility] AT [phone]. CM WAITING ADMISSION DETERMINATION FOR USP CARE FROM [facility] IN [place], [place]. Pepito Hatch, CASE MANAGEMENT DCP- Discharge Planning Updated by [id number]: Erin Ruiz on 10/03/18 7:[address] LATE ENTRY 10/03/18 @ 1638 CM MET WITH PATIENT. SHE DOESN'T WANT TO GO TO A ASSISTED FACILITY. SHE WANTS TO GO HOME WITH HOME HEALTH SERVICES. CM WILL CONTACT PATIENTS DAUGHTERS AND MAKE SURE THAT THEY ARE AVAILABLE TO ASSIST IN PATIENTS CARE. CM WILL CONTINUE TO FOLLOW AND ASSIST WITH DISCHARGE PLANNING / NEEDS. DCP- Discharge Planning Updated by [id number]: Ivy Varma on 09/29/18 4:[address] MELISSA SMITH, FAMILY MEMBER, WHO VISITED AT THE BEDSIDE TODAY REQUESTED THAT THE PATIENT BE PLACED CLOSE TO HOME WHEN STABLE FOR TRANSFER FOR REHAB SERVICES. SHE DESIRES FACILITY NEAR [place] OR [place]. SHE CAN BE REACHED AT [phone]. HER SISTER IS CRISSY SMITH AND CAN BE REACHED AT [phone]. DCP- Discharge Planning Updated by [email or web address]: Erin Ruiz on 09/24/18 5:[address] Late Entry - 09/24/18 @ 6643 Patient Name: DWAYNE SMITH Admission Status: Accout number: [id number] Admission Date: 08-27-2018 : 1965 Admission Diagnosis:SEPSIS, UNSPECIFIED ORGANISM Attending: LEON VELAZQUEZ Current LOS: 28 Anticipated DC Date: Planned Disposition: Home Primary Insurance: MEDICAID [place] Discharge Planning Comments: CM was able to speak with patient today she was off vent with pasmere valve in place. It was difficult to understand her but CM was able to get that she lived with a friend prior to admission and plans on returning there on discharge. Patient states she has a walker and home 02. CM will continue to follow and assist as needed with discharge planning / needs. Photoengraving Proofer Apprentice: Erin Ruiz DCP- Discharge Planning Updated by [email or web address]: Erin Ruiz on 09/23/18 4:[address] [facility] will not accept patient d/t patient only having Medicaid as a payer source. CM has contacted LTACH facilities within the state and the ones that take [facility] beds will not have any beds until after of the year. CM will continue to assist with discharge planning / needs DCP- Discharge Planning Updated by [id number]: Erinsalvatore Ruiz on 09/20/18 6:[address] CM attempted to visit with patient regarding discharge planning. Patient is alert but still on ventilator. Attempted to contact call contact number listed [phone]. NO Answer. NO family available.CM will continue to follow and assist as needed with discharge planning / needs. DCP- Discharge Planning Updated by [id number]: Erin Ruiz on 09/03/18 3:[address] Patient still sedated and on vent at this time. No family available to do discharge planning assessment. CM will continue to follow and assist as needed with discharge planning / needs. DCP- Discharge Planning Updated by [id number]: Sapna Steele on 09/01/18 9:[address] Patient Name: DWAYNE SMITH Admission Status: ER Accout number: [id number] Admission Date: 08-27-2018 : 1965 Admission Diagnosis: Attending: LEON VELAZQUEZ Current LOS: 5 Anticipated DC Date: Planned Disposition: Primary Insurance: MEDICAID [place] Discharge Planning Comments: PATIENT IS ON VENT. CALLED PHONE NUMBER LISTED ON HER CHART AND CHECKED THE WAITING ROOM FOR FAMILY. UNABLE TO GET IN TOUCH WITH FAMILY AT THIS TIME. I LEFT A MESSAGE ON THE PHONE, WAITING TO HEAR BACK. CM WILL FOLLOW AND ASSIST NEEDED WITH DC PLANNING NEEDS. Photoengraving Proofer Apprentice: Sapna Steele DCPIA - Discharge Planning Initial Assessment Updated by [id number]: Pepito Hatch on 10/07/18 4:32 pm * Is the patient Alert and Oriented? Yes * How many steps to enter\exit or inside your home? * PCP MD in [place] * Pharmacy [facility] * Preadmission Environment Home with Family * ADLs Independent * Equipment Oxygen * Other Equipment walker * List name and contact numbers for known caregivers / representatives who currently or will assist patient after discharge: MELISSA, DAUGHTER, * Verbal permission to speak to the caregivers and representatives has been obtained from the patient. N/A * Community resources currently utilized None * Additional services required to return to the preadmission environment? No * Can the patient safely return to the preadmission environment? Yes * Has this patient been hospitalized within the prior 30 days at any hospital? No Coverage Notice Reviewer: [id number] Valerie Hatch Notice Issued Date-Time: 10/07/2018 9:45 Notice Type: Patient Choice Letter Notice Delivered To: Patient Relationship to Patient: Tub Attendant Name: Delivery Method: HAND - Hand Delivered Clarissa Days: Prior Verbal Notification: Recipient Understood Notice: Yes Recipient Signature: Yes Med Rec Note Co-signed by Attending: Coverage Notice Comment: LTC FERNIE Last DP export: 10/09/18 4:34 p Patient Name: DWAYNE SMITH Page [id number] at 0940 All edits/amendments must be made on the electronic document DICTATION DATE: 10/10/18938 HOOK AND EYE MACHINE OPERATOR: ELEAZAR 10/10/18938 RPT#: [id number] DC DATE: STATUS: ADM IN [facility] [address] [place] [address] END OF REPORT
--- NOTE | ~2018-08-27 | MORECARE ---
CASE MANAGEMENT DISCHARGE SUMMARY PATIENT: DWAYNE SMITH UNIT: [id number] ADM DATE: 08/27/18 AGE: 53 : 67 SEX: F ROOM/BED: D.0 AUTHOR: OLIVERIO,DOC PHYSICIAN: REFERRING PHYSICIAN: LEON VELAZQUEZ MD DATE OF SERVICE: 10/09/18 Discharge Plan Patient Name: DWAYNE SMITH Facility: [facility]:[place] : 1965 Planned Disposition: Nursing Facility [facility] Cert Anticipated Discharge Date: 10/10/18 Discharge Date: Expected LOS: 44 Initial Reviewer: [id number] Initial Review Date: 09/24/2018 Generated: 10/09/18 6:00 pm Comments DCP- Discharge Planning Updated by [id number]: Pepito Hatch on 10/09/18 12:[address] Patient Name: DWAYNE SMITH Encounter No: [id number] : 1965 Primary Insurance: MEDICAID [place] Anticipated DC Date: 10-08-2018 Planned Disposition: Nursing Facility [facility] Cert External Planned Provider: FIRST ACCEPTING FACILITY FOR CUSTOM CAR BUILDER CARE MEDICAID BED DCP follow-up note: CM SPOKE TO PT IN ROOM WHO REPORTS THAT [facility] WILL NOT TAKE HER THEY WILL NOT TAKE SOMEONE WITH A TRACH. PT ASKED FOR REFERRALS TO BE SENT TO NURSING HOMES IN [place] AND [facility], CHOICE SIGNED. CM CALLED [facility] [place], , SPOKE TO GREGORIO WHO WILL REVIEW REFERRAL FOR CUSTOM CAR BUILDER CARE. CM FAXED REFERRAL TO [facility] IN [place], . CM CALLED [facility], , SPOKE TO CRISSY WHO REPORTS PB WILL REVIEW REFERRAL AND CALL CM BACK. CM FAXED REFERRAL TO [facility], . CM CALLED [facility] IN [facility], , SPOKE TO GREGORIO WHO WILL REVIEW REFERRAL FOR CUSTOM CAR BUILDER CARE. CM FAXED REFERRAL TO [facility] AT [phone]. CM WAITING ADMISSION DETERMINATIONS FROM [facility] [place], [facility] [facility] FOR CUSTOM CAR BUILDER CARE. Pepito Hatch, CASE MANAGEMENT DCP- Discharge Planning Updated by [id number]: Pepito Hatch on 10/07/18 3:[address] Patient Name: DWAYNE SMITH Encounter No: [id number] : 1965 Primary Insurance: [place]ID [place] Anticipated DC Date: 10-08-2018 Planned Disposition: Nursing Facility [facility] Cert External Planned Provider: [facility] TERM CARE MEDICAID BED DCP follow-up note: CM SPOKE TO PT IN ROOM REGARDING DISCHARGE PLANNING. PT INITIALLY REPORTS WANTING TO GO HOME WITH FAMILY ASSISTANCE, ASKED CM TO SPEAK TO HER DAUGHTER, MELISSA AT [phone]. CM SPOKE TO MELISSA IN PRESENCE OF PT VIA PHONE. MELISSA REPORTS THAT PT IS NOT SAFE TO RETURN HOME AND NEEDS SENIOR LIVING CARE AT THE ASSISTED AGAIN. MELISSA WOULD LIKE REFERRAL FAXED TO [facility] WHERE PT HAS BEEN PLACED IN THE PAST AND THAT MELISSA WORKS AT. PT IN AGREEMENT WITH PLAN, CHOICE SIGNED. PT REPORTS HER FAMILY CAN TRANSPORT IF ACCEPTED AND THEY HAVE PORTABLE OXYGEN AT HOME FOR TRANSPORT. CM CALLED [facility], , SPOKE TO JOSE LUIS WHO KNOWS PT AND WILL EVALUATE FOR SENIOR LIVING CARE. CM FAXED REFERRAL TO [facility] AT [phone]. CM WAITING ADMISSION DETERMINATION FOR SENIOR LIVING CARE FROM [facility] IN [place], [place]. Pepito Hatch, CASE MANAGEMENT DCP- Discharge Planning Updated by [id number]: Erin Joseph on 10/03/18 7:[address] LATE ENTRY 10/03/18 @ 1630 CM MET WITH PATIENT. SHE DOESN'T WANT TO GO TO A ASSISTED FACILITY. SHE WANTS TO GO HOME WITH HOME HEALTH SERVICES. CM WILL CONTACT PATIENTS DAUGHTERS AND MAKE SURE THAT THEY ARE AVAILABLE TO ASSIST IN PATIENTS CARE. CM WILL CONTINUE TO FOLLOW AND ASSIST WITH DISCHARGE PLANNING / NEEDS. DCP- Discharge Planning Updated by [email or web address]: Ivy Varma on 09/29/18 4:[address] MELISSA SMITH, FAMILY MEMBER, WHO VISITED AT THE BEDSIDE TODAY REQUESTED THAT THE PATIENT BE PLACED CLOSE TO HOME WHEN STABLE FOR TRANSFER FOR REHAB SERVICES. SHE DESIRES FACILITY NEAR [place] OR [place]. SHE CAN BE REACHED AT [phone]. HER SISTER IS CRISSY SMITH AND CAN BE REACHED AT [phone]. DCP- Discharge Planning Updated by [id number]: Erin Ruiz on 09/24/18 5:[address] Late Entry - 09/24/18 @ 1230 Patient Name: DWAYNE SMITH Admission Status: ER Accout number: [id number] Admission Date: 08-27-2018 : 1965 Admission Diagnosis:SEPSIS, UNSPECIFIED ORGANISM Attending: LEON VELAZQUEZ Current LOS: 28 Anticipated DC Date: Planned Disposition: Home Primary Insurance: [place]ID [place] Discharge Planning Comments: CM was able to speak with patient today she was off vent with pasmere valve in place. It was difficult to understand her but CM was able to get that she lived with a friend prior to admission and plans on returning there on discharge. Patient states she has a walker and home 02. CM will continue to follow and assist as needed with discharge planning / needs. Memory Care Program Director: Erin Ruiz DCP- Discharge Planning Updated by [id number]: Erin Ruiz on 09/23/18 4:[address] [facility] will not accept patient d/t patient only having Medicaid as a payer source. CM has contacted LTACH facilities within the state and the ones that take [facility] beds will not have any beds until after of the year. CM will continue to assist with discharge planning / needs DCP- Discharge Planning Updated by [email or web address]: Erin Ruiz on 09/20/18 6:[address] CM attempted to visit with patient regarding discharge planning. Patient is alert but still on ventilator. Attempted to contact call contact number listed [phone]. NO Answer. NO family available.CM will continue to follow and assist as needed with discharge planning / needs. DCP- Discharge Planning Updated by [email or web address]: Erin Ruiz on 09/03/18 3:[address] Patient still sedated and on vent at this time. No family available to do discharge planning assessment. CM will continue to follow and assist as needed with discharge planning / needs. DCP- Discharge Planning Updated by [id number]: Sapna Steele on 09/01/18 9:[address] Patient Name: DWAYNE SMITH Admission Status: ER Accout number: [id number] Admission Date: 08-27-2018 : 1965 Admission Diagnosis: Attending: LEON VELAZQUEZ Current LOS: 5 Anticipated DC Date: Planned Disposition: Primary Insurance: [place]ID [place] Discharge Planning Comments: PATIENT IS ON VENT. CALLED PHONE NUMBER LISTED ON HER CHART AND CHECKED THE WAITING ROOM FOR FAMILY. UNABLE TO GET IN TOUCH WITH FAMILY AT THIS TIME. I LEFT A MESSAGE ON THE PHONE, WAITING TO HEAR BACK. CM WILL FOLLOW AND ASSIST NEEDED WITH DC PLANNING NEEDS. Memory Care Program Director: Sapna Steele DCPIA - Discharge Planning Initial Assessment Updated by [email or web address]: Pepito Hatch on 10/07/18 4:32 pm * Is the patient Alert and Oriented? Yes * How many steps to enter\exit or inside your home? * PCP MD in [place] * Pharmacy [facility] * Preadmission Environment Home with Family * ADLs Independent * Equipment Oxygen * Other Equipment walker * List name and contact numbers for known caregivers / representatives who currently or will assist patient after discharge: MELISSA, DAUGHTER, * Verbal permission to speak to the caregivers and representatives has been obtained from the patient. N/A * Community resources currently utilized None * Additional services required to return to the preadmission environment? No * Can the patient safely return to the preadmission environment? Yes * Has this patient been hospitalized within the prior 30 days at any hospital? No Coverage Notice Reviewer: [id number] - Pepito Hatch Notice Issued Date-Time: 10/07/2018 9:45 Notice Type: Patient Choice Letter Notice Delivered To: Patient Relationship to Patient: Director Marketing Communications Name: Delivery Method: HAND - Hand Delivered Clarissa Days: Prior Verbal Notification: Recipient Understood Notice: Yes Recipient Signature: Yes Med Rec Note Co-signed by Attending: Coverage Notice Comment: LTC FERNIE Last DP export: 10/09/18 12:07 p Patient Name: DWAYNE SMITH Page [id number] at 1700 All edits/amendments must be made on the electronic document DICTATION DATE: 10/09/181658 STAFF DEVELOPMENT COORDINATOR: ELEAZAR 10/09/181658 RPT#: [id number] DC DATE: STATUS: ADM IN [facility] [address] [place] [address] END OF REPORT
--- NOTE | ~2018-08-27 | MORECARE ---
CASE MANAGEMENT DISCHARGE SUMMARY PATIENT: DWAYNE SMITH UNIT: [id number] ADM DATE: 08/27/18 AGE: 53 : 67 SEX: F ROOM/BED: D.0 AUTHOR: OLIVERIO,DOC PHYSICIAN: REFERRING PHYSICIAN: LEON VELAZQUEZ MD DATE OF SERVICE: 10/07/18 Discharge Plan Patient Name: DWAYNE SMITH Facility: [facility]:[place] : 1965 Planned Disposition: Nursing Facility [facility] Cert Anticipated Discharge Date: 10/08/18 Discharge Date: Expected LOS: 42 Initial Reviewer: [id number] Initial Review Date: 09/24/2018 Generated: 10/07/18 5:32 pm Comments DCP- Discharge Planning Updated by [email or web address]: Pepito Hatch on 10/07/18 3:[address] Patient Name: DWAYNE SMITH Encounter No: [id number] : 1965 Primary Insurance: MEDICAID [place] Anticipated DC Date: 10-08-2018 Planned Disposition: Nursing Facility [facility] Cert External Planned Provider: [facility] IN [place], LONG TERM CARE MEDICAID BED DCP follow-up note: CM SPOKE TO PT IN ROOM REGARDING DISCHARGE PLANNING. PT INITIALLY REPORTS WANTING TO GO HOME WITH FAMILY ASSISTANCE, ASKED CM TO SPEAK TO HER DAUGHTER, MELISSA AT [phone]. CM SPOKE TO MELISSA IN PRESENCE OF PT VIA PHONE. MELISSA REPORTS THAT PT IS NOT SAFE TO RETURN HOME AND NEEDS MAINTENANCE AND UTILITIES SUPERVISOR CARE AT THE SENIOR LIVING AGAIN. MELISSA WOULD LIKE REFERRAL FAXED TO [facility] WHERE PT HAS BEEN PLACED IN THE PAST AND THAT MELISSA WORKS AT. PT IN AGREEMENT WITH PLAN, CHOICE SIGNED. PT REPORTS HER FAMILY CAN TRANSPORT IF ACCEPTED AND THEY HAVE PORTABLE OXYGEN AT HOME FOR TRANSPORT. CM CALLED [facility], , SPOKE TO JOSE LUIS WHO KNOWS PT AND WILL EVALUATE FOR MAINTENANCE AND UTILITIES SUPERVISOR CARE. CM FAXED REFERRAL TO [facility] AT [phone]. CM WAITING ADMISSION DETERMINATION FOR MAINTENANCE AND UTILITIES SUPERVISOR CARE FROM [facility] IN [place], [place]. Pepito Hatch, CASE JESSICA DCP- Discharge Planning Updated by [id number]: Erin Ruiz on 10/03/18 7:[address] LATE ENTRY 10/03/18 @ 1630 CM MET WITH PATIENT. SHE DOESN'T WANT TO GO TO A SENIOR LIVING FACILITY. SHE WANTS TO GO HOME WITH HOME HEALTH SERVICES. CM WILL CONTACT PATIENTS DAUGHTERS AND MAKE SURE THAT THEY ARE AVAILABLE TO ASSIST IN PATIENTS CARE. CM WILL CONTINUE TO FOLLOW AND ASSIST WITH DISCHARGE PLANNING / NEEDS. DCP- Discharge Planning Updated by [email or web address]: Ivy Varma on 09/29/18 4:[address] MELISSA SMITH, FAMILY MEMBER, WHO VISITED AT THE BEDSIDE TODAY REQUESTED THAT THE PATIENT BE PLACED CLOSE TO HOME WHEN STABLE FOR TRANSFER FOR REHAB SERVICES. SHE DESIRES FACILITY NEAR [place] OR [place]. SHE CAN BE REACHED AT [phone]. HER SISTER IS CRISSY SMITH AND CAN BE REACHED AT [phone]. DCP- Discharge Planning Updated by [email or web address]: Erin Ruiz on 09/24/18 5:[address] Late Entry - 09/24/18 @ 7144 Patient Name: DWAYNE SMITH Admission Status: ER Accout number: [id number] Admission Date: 08-27-2018 : 1965 Admission Diagnosis:SEPSIS, UNSPECIFIED ORGANISM Attending: LEON VELAZQUEZ Current LOS: 28 Anticipated DC Date: Planned Disposition: Home Primary Insurance: MEDICAID [place] Discharge Planning Comments: CM was able to speak with patient today she was off vent with pasmere valve in place. It was difficult to understand her but CM was able to get that she lived with a friend prior to admission and plans on returning there on discharge. Patient states she has a walker and home 02. CM will continue to follow and assist as needed with discharge planning / needs. Materials Buyer: Erin Ruiz DCP- Discharge Planning Updated by [email or web address]: Erin Ruiz on 09/23/18 4:[address] [facility] will not accept patient d/t patient only having Medicaid as a payer source. [facility] has contacted LTACH facilities within the state and the ones that take valeria beds will not have any beds until after 1st of the year. CM will continue to assist with discharge planning / needs DCP- Discharge Planning Updated by [id number]: Erin Ruiz on 09/20/18 6:[address] CM attempted to visit with patient regarding discharge planning. Patient is alert but still on ventilator. Attempted to contact call contact number listed [phone]. NO Answer. NO family available.CM will continue to follow and assist as needed with discharge planning / needs. DCP- Discharge Planning Updated by [email or web address]: Erin Ruiz on 09/03/18 3:[address] Patient still sedated and on vent at this time. No family available to do discharge planning assessment. CM will continue to follow and assist as needed with discharge planning / needs. DCP- Discharge Planning Updated by [id number]: Sapna Steele on 09/01/18 9:[address] Patient Name: DWAYNE SMITH Admission Status: ER Accout number: [id number] Admission Date: 08-27-2018 : 1965 Admission Diagnosis: Attending: LEON VELAZQUEZ Current LOS: 5 Anticipated DC Date: Planned Disposition: Primary Insurance: MEDICAID [place] Discharge Planning Comments: PATIENT IS ON VENT. CALLED PHONE NUMBER LISTED ON HER CHART AND CHECKED THE WAITING ROOM FOR FAMILY. UNABLE TO GET IN TOUCH WITH FAMILY AT THIS TIME. I LEFT A MESSAGE ON THE PHONE, WAITING TO HEAR BACK. CM WILL FOLLOW AND ASSIST NEEDED WITH DC PLANNING NEEDS. Materials Buyer: Sapna Steele DCPIA - Discharge Planning Initial Assessment Updated by [email or web address]: Pepito Hatch on 10/07/18 4:32 pm * Is the patient Alert and Oriented? Yes * How many steps to enter\exit or inside your home? * PCP MD in [place] * Pharmacy [facility] * Preadmission Environment Home with Family * ADLs Independent * Equipment Oxygen * Other Equipment walker * List name and contact numbers for known caregivers / representatives who currently or will assist patient after discharge: MELISSA, DAUGHTER, * Verbal permission to speak to the caregivers and representatives has been obtained from the patient. N/A * Community resources currently utilized None * Additional services required to return to the preadmission environment? No * Can the patient safely return to the preadmission environment? Yes * Has this patient been hospitalized within the prior 30 days at any hospital? No Last DP export: 10/07/18 3:18 p Patient Name: DWAYNE SMITH Page 97573 at 1633 All edits/amendments must be made on the electronic document DICTATION DATE: 10/07/181631 STEAM CONDITIONER OPERATOR: ELEAZAR 10/07/18 163 RPT#: [id number] DC DATE: STATUS: ADM IN [facility] [address] [place] [address] END OF REPORT
--- NOTE | ~2018-08-27 | MORECARE ---
CASE MANAGEMENT DISCHARGE SUMMARY PATIENT: DWAYNE SMITH UNIT: [id number] ADM DATE: 08/27/18 AGE: 53 : 67 SEX: F ROOM/BED: D.[facility] AUTHOR: ZAK DURON PHYSICIAN: REFERRING PHYSICIAN: LEON VELAZQUEZ MD DATE OF SERVICE: 08/27/18 Discharge Plan Patient Name: DWAYNE SMITH [facility] [facility] 1965 Planned Disposition: Anticipated Discharge Date: Discharge Date: Expected LOS: Initial Reviewer: [email or web address] Initial Review Date: 08/27/2018 Generated: 08/27/18 6:29 pm Patient Name: DWAYNE SMITH Page [phone] at 1724 All edits/amendments must be made on the electronic document DICTATION DATE: 08/27/181728 TELEPHONIC NURSE: ELEAZAR 08/27/181728 RPT#: [id number] DC DATE: STATUS: ADM IN [facility] [address] [place] [address] END OF REPORT
--- NOTE | ~2018-08-27 | OP ---
PATIENT NAME: DWAYNE SMITH MEDICAL RECORD: [id number] :[birth year] LOCATION:D.[facility] D.2313 ADMISSION DATE:08/27/18 SURGEON: EMIL PRATT MD DATE OF OPERATION: 09/13/2018 PREOPERATIVE DIAGNOSES: 1. Need for IV access. 2. Acute respiratory failure on the ventilator. 3. Acute congestive heart failure exacerbation. POSTOPERATIVE DIAGNOSES: 1. Need for IV access. 2. Acute respiratory failure on the ventilator. 3. Acute congestive heart failure exacerbation. PROCEDURE: Exchange of single lumen right upper extremity PICC for dual lumen 5-Tajik PICC. SURGEON: Emil Pratt MD REPORT OF PROCEDURE: The patient's right upper extremity and indwelling PICC line were prepped and draped in sterile fashion. A PICC was cut and the wire was advanced through this indwelling PICC. The PICC was removed and the dilator trocar device was placed over the wire. The dilator was then removed and the PICC, which been cut with a beveled tip, was advanced over the wire, through the trocar. The wire and trocar were then removed and the PICC rested in good position. This was affixed to the Skin Affix device and a new dressing was applied. COMPLICATIONS: None. CONDITION: Stable. ANESTHESIA: General endotracheal. BLOOD LOSS: Minimal. Procedure done in the ICU at the bedside. TRANSINT:[id number] Voice Confirmation ID: [id number] DOCUMENT ID: [id number] EMIL PRATT MD at 1219 CC: [id number] DICTATION DATE: 09/13/18 1634 CAD DRAFTER: 09/13/18 2154 ADM IN [place] [id number] [place] [address]
--- NOTE | ~2018-08-27 | MORECARE ---
CASE MANAGEMENT DISCHARGE SUMMARY PATIENT: DWAYNE SMITH UNIT: [id number] ADM DATE: 08/27/18 AGE: 53 : 67 SEX: F ROOM/BED: D.0 AUTHOR: OLIVERIO,DOC PHYSICIAN: REFERRING PHYSICIAN: LEON VELAZQUEZ MD DATE OF SERVICE: 10/09/18 Discharge Plan Patient Name: DWAYNE SMITH Facility: [facility]:[place] : 1965 Planned Disposition: Nursing Facility [facility] Cert Anticipated Discharge Date: 10/10/18 Discharge Date: Expected LOS: 44 Initial Reviewer: [email or web address] Initial Review Date: 09/24/2018 Generated: 10/09/18 6:08 pm Comments DCP- Discharge Planning Updated by [email or web address]: Pepito Hatch on 10/09/18 12:[address] Patient Name: DWAYNE SMITH Encounter No: [id number] : 1965 Primary Insurance: MEDICAID [place] Anticipated DC Date: 10-08-2018 Planned Disposition: Nursing Facility [facility] Cert External Planned Provider: FIRST ACCEPTING FACILITY FOR CABLE BRAIDER CARE MEDICAID BED DCP follow-up note: CM SPOKE TO PT IN ROOM WHO REPORTS THAT [facility] WILL NOT TAKE HER THEY WILL NOT TAKE SOMEONE WITH A TRACH. PT ASKED FOR REFERRALS TO BE SENT TO NURSING HOMES IN [place] AND [facility], CHOICE SIGNED. CM [facility] [place], , SPOKE TO GREGORIO WHO WILL REVIEW REFERRAL FOR CABLE BRAIDER CARE. CM FA[facility]ED [facility] [place], . CM CALLED [facility], , SPOKE TO CRISSY WHO REPORTS PB WILL REVIEW REFERRAL AND CALL CM BACK. CM FAXED REFERRAL TO [facility], . CM CALLED [facility] IN [facility], , SPOKE TO GREGORIO WHO WILL REVIEW REFERRAL FOR CABLE BRAIDER CARE. CM FAXED REFERRAL TO [facility] AT [phone]. CM WAITING ADMISSION DETERMINATIONS FROM [facility] [place], [facility] [facility] FOR CABLE BRAIDER CARE. Pepito Hatch, CASE MANAGEMENT DCP- Discharge Planning Updated by [id number]: Pepito Hatch on 10/07/18 3:[address] Patient Name: DWAYNE SMITH Encounter No: [id number] : 1965 Primary Insurance: MEDICAID [place] Anticipated DC Date: 10-08-2018 Planned Disposition: Nursing Facility [facility] Cert External Planned Provider: [facility] IN [facility] TERM CARE MEDICAID BED DCP follow-up note: CM SPOKE TO PT IN ROOM REGARDING DISCHARGE PLANNING. PT INITIALLY REPORTS WANTING TO GO HOME WITH FAMILY ASSISTANCE, ASKED CM TO SPEAK TO HER DAUGHTER, MELISSA AT [phone]. CM SPOKE TO MELISSA IN PRESENCE OF PT VIA PHONE. MELISSA REPORTS THAT PT IS NOT SAFE TO RETURN HOME AND NEEDS HALF-WAY CARE AT THE SHELTER AGAIN. MELISSA WOULD LIKE REFERRAL FAXED TO [facility] WHERE PT HAS BEEN PLACED IN THE PAST AND THAT MELISSA WORKS AT. PT IN AGREEMENT WITH PLAN, CHOICE SIGNED. PT REPORTS HER FAMILY CAN TRANSPORT IF ACCEPTED AND THEY HAVE PORTABLE OXYGEN AT HOME FOR TRANSPORT. CM CALLED [facility], , SPOKE TO JOSE LUIS WHO KNOWS PT AND WILL EVALUATE FOR HALF-WAY CARE. CM FAXED REFERRAL TO [facility] AT [phone]. CM WAITING ADMISSION DETERMINATION FOR HALF-WAY CARE FROM [facility] IN [place], [place]. Pepito Hatch, CASE MANAGEMENT DCP- Discharge Planning Updated by [email or web address]: Erin Joseph on 10/03/18 7:[address] LATE ENTRY 10/03/18 @ 1630 CM MET WITH PATIENT. SHE DOESN'T WANT TO GO TO A SHELTER FACILITY. SHE WANTS TO GO HOME WITH HOME HEALTH SERVICES. CM WILL CONTACT PATIENTS DAUGHTERS AND MAKE SURE THAT THEY ARE AVAILABLE TO ASSIST IN PATIENTS CARE. CM WILL CONTINUE TO FOLLOW AND ASSIST WITH DISCHARGE PLANNING / NEEDS. DCP- Discharge Planning Updated by [id number]: Ivy Varma on 09/29/18 4:[address] MELISSA SMITH, FAMILY MEMBER, WHO VISITED AT THE BEDSIDE TODAY REQUESTED THAT THE PATIENT BE PLACED CLOSE TO HOME WHEN STABLE FOR TRANSFER FOR REHAB SERVICES. SHE DESIRES FACILITY NEAR [place] OR [place]. SHE CAN BE REACHED AT [phone]. HER SISTER IS CRISSY SMITH AND CAN BE REACHED AT [phone]. DCP- Discharge Planning Updated by [id number]: Erin Ruiz on 09/24/18 5:[address] Late Entry - 09/24/18 @ 1230 Patient Name: DWAYNE SMITH Admission Status: ER Accout number: [id number] Admission Date: 08-27-2018 : 1965 Admission Diagnosis:SEPSIS, UNSPECIFIED ORGANISM Attending: LEON VELAZQUEZ Current LOS: 28 Anticipated DC Date: Planned Disposition: Home Primary Insurance: MEDICAID [place] Discharge Planning Comments: CM was able to speak with patient today she was off vent with pasmere valve in place. It was difficult to understand her but CM was able to get that she lived with a friend prior to admission and plans on returning there on discharge. Patient states she has a walker and home 02. CM will continue to follow and assist as needed with discharge planning / needs. Nursing Department Chairperson: Erin Ruiz DCP- Discharge Planning Updated by [id number]: Erin Ruiz on 09/23/18 4:[address] [facility] will not accept patient d/t patient only having Medicaid as a payer source. CM has contacted LTACH facilities within the state and the ones that take valeria beds will not have any beds until after of the year. CM will continue to assist with discharge planning / needs DCP- Discharge Planning Updated by [id number]: Erin Ruiz on 09/20/18 6:[address] CM attempted to visit with patient regarding discharge planning. Patient is alert but still on ventilator. Attempted to contact call contact number listed [phone]. NO Answer. NO family available.CM will continue to follow and assist as needed with discharge planning / needs. DCP- Discharge Planning Updated by [id number]: Erin Ruiz on 09/03/18 3:[address] Patient still sedated and on vent at this time. No family available to do discharge planning assessment. CM will continue to follow and assist as needed with discharge planning / needs. DCP- Discharge Planning Updated by [email or web address]: Sapna Steele on 09/01/18 9:[address] Patient Name: DWAYNE SMITH Admission Status: ER Accout number: [id number] Admission Date: 08-27-2018 : 1965 Admission Diagnosis: Attending: LEON VELAZQUEZ Current LOS: 5 Anticipated DC Date: Planned Disposition: Primary Insurance: MEDICAID [place] Discharge Planning Comments: PATIENT IS ON VENT. CALLED PHONE NUMBER LISTED ON HER CHART AND CHECKED THE WAITING ROOM FOR FAMILY. UNABLE TO GET IN TOUCH WITH FAMILY AT THIS TIME. I LEFT A MESSAGE ON THE PHONE, WAITING TO HEAR BACK. CM WILL FOLLOW AND ASSIST NEEDED WITH DC PLANNING NEEDS. Nursing Department Chairperson: Sapna Steele DCPIA - Discharge Planning Initial Assessment Updated by [id number]: Pepito Hatch on 10/07/18 4:32 pm * Is the patient Alert and Oriented? Yes * How many steps to enter\exit or inside your home? * PCP MD in [place] * Pharmacy [facility] * Preadmission Environment Home with Family * ADLs Independent * Equipment Oxygen * Other Equipment walker * List name and contact numbers for known caregivers / representatives who currently or will assist patient after discharge: MELISSA, DAUGHTER, * Verbal permission to speak to the caregivers and representatives has been obtained from the patient. N/A * Community resources currently utilized None * Additional services required to return to the preadmission environment? No * Can the patient safely return to the preadmission environment? Yes * Has this patient been hospitalized within the prior 30 days at any hospital? No Coverage Notice Reviewer: [id number] - Pepito Hatch Notice Issued Date-Time: 10/07/2018 9:45 Notice Type: Patient Choice Letter Notice Delivered To: Patient Relationship to Patient: Plum Packer Name: Delivery Method: HAND - Hand Delivered Clarissa Days: Prior Verbal Notification: Recipient Understood Notice: Yes Recipient Signature: Yes Med Rec Note Co-signed by Attending: Coverage Notice Comment: [facility]TC FERNIE Last DP export: 10/09/18 4:00 p Patient Name: DWAYNE SMITH Page [phone] at 1708 All edits/amendments must be made on the electronic document DICTATION DATE: 10/09/181707 SYSTEMS PLANNER: ELEAZAR 10/09/181707 RPT#: [id number] DC DATE: STATUS: ADM IN [place] [address] [place] [address] END OF REPORT
--- NOTE | ~2018-08-27 | EC ---
PATIENT:DWAYNE SMITH DATE OF SERVICE: 08/27/18 SEX: F MEDICAL RECORD: [id number] DATE OF : [birth year] LOCATION:[place] [address] AGE OF PATIENT: 53 ADMISSION DATE: 08/27/18 REFERRING PHYSICIAN: INTERPRETING PHYSICIAN: FITZ HILLIARD MD ECHOCARDIOGRAM REPORT ECHO CHARGES 4 ECHO COMPLETE Date: 08/28/18 CLINICAL DIAGNOSIS: CHF ECHOCARDIOGRAPHIC MEASUREMENTS (adult normal given) AC root (d.<3.7cm) 3.0 cm LV Septum d (<1.2 cm> 1.9 cm Valve Excursion 1.7 cm LV Septum (systole) 2.2 cm Left Atria (s.<4.0cm> 4.9 cm LVPW d(<1.2cm) 1.9 cm RV (d.<2.3cm) 2.6 cm LVPW (sytole) 2.3 cm LV diastole(<5.6CM) 3.6 cm MV E-F(>70mm/sec) cm LV systole 1.8 cm LVOT Diameter 1.8 cm MV exc.(>10mm) cm Est.ejection fraction (50-75%) % DOPPLER: LVIT cm/sec A 125 cm/sec E 84.0 cm/sec LA cm/sec RVSP mmHg LVOT 102 cm/sec AOP1/2T m/s Asc. Ao 165 cm/sec RVOT 79.0 cm/sec RA cm/sec PA 112 cm/sec AV Gradient Peak 11.0 mmHg AV Mean 5.3 mmHg AV Area 1.7 cm MV Gradient Peak 6.8 mmHg MV Mean 2.9 mmHg MV Area cm COMMENTS: Flight Inspector: 1 BRYSON KOCHOE Chair Upholsterer: 3 Dr. Machado TAPE# PACS Pericardial Effusion Y DATE OF SERVICE: Adequate 2D echo, color flow, spectral Doppler, M-mode. LVH is present. LV internal dimension is normal. Wall motion is normal. EF is greater than or equal to 55%. Aortic valve is tricuspid. No evidence of stenosis by Doppler interrogation. Left atrium dilated at 4.9 cm. Mitral valve shows no prolapse. Trace MR. Right-sided chambers normal. Trace TR. TRANSINT:[id number] Voice Confirmation ID: [id number] DOCUMENT ID: [id number] ECHOCARDIOGRAM REPORT [id number] SARAH,DWAYNEFITZ CAZARES MD at 2229 CC: [id number] DICTATION DATE: 08/28/18 1420 BRUSHING OPERATOR: 08/28/18 1523 ADM IN [place] [id number] [place] [id number]
--- NOTE | ~2018-08-27 | MORECARE ---
CASE MANAGEMENT DISCHARGE SUMMARY PATIENT: DWAYNE SMITH UNIT: [id number] ADM DATE: 08/27/18 AGE: 53 : 67 SEX: F ROOM/BED: D.2313 AUTHOR: OLIVERIO,DOC PHYSICIAN: REFERRING PHYSICIAN: LEON VELAZQUEZ MD DATE OF SERVICE: 09/23/18 Discharge Plan Patient Name: DWAYNE SMITH Facility: [facility]:[place] : 1965 Planned Disposition: Anticipated Discharge Date: Discharge Date: Expected LOS: Initial Reviewer: [email or web address] Initial Review Date: 08/27/2018 Generated: 09/23/18 6:51 pm Comments DCP- Discharge Planning Updated by [email or web address]: Erin Ruiz on 09/23/18 4:[address] [facility] will not accept patient d/t patient only having Medicaid as a payer source. CM has contacted LTACH facilities within the [facility] and the ones that take valeria beds will not have any beds until after of the year. CM will continue to assist with discharge planning / needs DCP- Discharge Planning Updated by [email or web address]: Erin Ruiz on 09/20/18 6:[address] CM attempted to visit with patient regarding discharge planning. Patient is alert but still on ventilator. Attempted to contact call contact number listed [phone]. NO Answer. NO family available.CM will continue to follow and assist as needed with discharge planning / needs. DCP- Discharge Planning Updated by [id number]: Erin Ruiz on 09/03/18 3:[address] Patient still sedated and on vent at this time. No family available to do discharge planning assessment. CM will continue to follow and assist as needed with discharge planning / needs. DCP- Discharge Planning Updated by [id number]: Sapna Steele on 09/01/18 9:[address] Patient Name: DWAYNE SMITH Admission Status: ER Accout number: [id number] Admission Date: 08-27-2018 : 1965 Admission Diagnosis: Attending: LEON VELAZQUEZ Current LOS: 5 Anticipated DC Date: Planned Disposition: Primary Insurance: MEDICAID [place] Discharge Planning Comments: PATIENT IS ON VENT. CALLED PHONE NUMBER LISTED ON HER CHART AND CHECKED THE WAITING ROOM FOR FAMILY. UNABLE TO GET IN TOUCH WITH FAMILY AT THIS TIME. I LEFT A MESSAGE ON THE PHONE, WAITING TO HEAR BACK. CM WILL FOLLOW AND ASSIST NEEDED WITH DC PLANNING NEEDS. Press Puller: Sapna ORONA export: 09/20/18 6:34 Patient Name: DWAYNE SMITH Page [phone] at 1751 All edits/amendments must be made on the electronic document DICTATION DATE: 09/23/181750 CLINICAL BIOSTATISTICS DIRECTOR: ELEAZAR 09/23/181750 RPT#: [id number] DC DATE: STATUS: ADM IN [facility] [address] [place] [address] END OF REPORT
[2018-08-27] MEDS ORDERED: NOVOLOG100 UNIT/1 SQ ×2 (16:51)
[2018-08-27] MEDS ORDERED: LASIX80 MG PO (18:03)
[2018-08-27] MEDS ORDERED: LIPITOR80 MG PO (18:03)
[2018-08-27] MEDS ORDERED: OMEPRAZOLE20 M1 PO (18:04)
[2018-08-27] MEDS ORDERED: COREG12.5 MG PO (18:04)
[2018-08-27] MEDS ORDERED: NEURONTIN 300300 MG (18:05)
[2018-08-27 18:13] LABS: BASOPHILS 0 % (0-2); EOSINOPHILS 0.6 % (0-7); HEMATOCRIT 29.8 % (36.0-48.0); HEMOGLOBIN 8.2 g/dL (12-16); IMMATURE GRANULOCYTES 0.4 % (0-5); LYMPHOCYTES 9.2 % (15-50); MCH 26.5 pg (26.0-34.0); MCHC 27.5 g/dL (31.0-37.0); MCV 96.1 fL (80.0-100.0); MEAN PLATELET VOLUME 12.2 fL (7.4-10.4); MONOCYTES 6.6 % (2-11); NEUTROPHILS 83.2 % (40-80); PLATELET COUNT 96 10x3/uL (130-400); RDW 16.5 % (11.5-14.5); WBC 7.8 10x3/uL (4.8-10.8)
[2018-08-27 18:50] LABS: PHOSPHOROUS 4.5 mg/dL (2.5-4.9)
[2018-08-27 18:54] LABS: ALBUMIN 2.9 g/dL (3.4-5.0); ALKALINE PHOSPHATASE 48 U/L (46-116); ALT (SGPT) 11 U/L (10-68); BILIRUBIN - TOTAL 0.27 mg/dL (0.2-1.3); CALC OSMOLALITY 293 mosm/kg (275-300); CALCIUM 8.5 mg/dL (8.5-10.1); CARBON DIOXIDE 29.4 mmol/L (21.0-32.0); CHLORIDE - SERUM 108 mmol/L (98-107); CKMB 0.6 U/L (0.0-3.6); CREATINE KINASE 23 UL (21-215); CREATININE - SERUM 2.3 mg/dL (0.6-1.3); GLUCOSE 81 mg/dL (74-106); POTASSIUM - SERUM 5.7 mmol/L (3.5-5.1); PROTEIN - SERUM 7.5 g/dL (6.4-8.2); SODIUM 145 mmol/L (136-145); TROPONIN-I 0.024 ng/mL (0.000-0.060); UREA NITROGEN 30 mg/dL (7-18); eGFR NON AFRICAN AMERICAN 24 mL/min (90-120)
[2018-08-27 23:41] LABS: ANION GAP 17.3 mmol/L (8-16); CALCIUM 8.7 mg/dL (8.5-10.1); CARBON DIOXIDE 26.8 mmol/L (21.0-32.0); CREATININE - SERUM 2.3 mg/dL (0.6-1.3)
[2018-08-27 23:44] LABS: POTASSIUM - SERUM 6.1 mmol/L (3.5-5.1)
[2018-08-28] VITALS (86 sets, daily range): BP systolic 116–172; BP diastolic 46–115; BMI 51.1
[2018-08-28 04:32] LABS: BASOPHILS 0.4 % (0-2); EOSINOPHILS 0.2 % (0-7); HEMATOCRIT 28.1 % (36.0-48.0); HEMOGLOBIN 8.1 g/dL (12-16); IMMATURE GRANULOCYTES 0.2 % (0-5); LYMPHOCYTES 10.2 % (15-50); MCH 26.4 pg (26.0-34.0); MCHC 28.8 g/dL (31.0-37.0); MONOCYTES 2.3 % (2-11); NEUTROPHILS 86.7 % (40-80); PLATELET COUNT 103 10x3/uL (130-400); RBC 3.07 10x6/uL (4.00-5.40); RDW 16.5 % (11.5-14.5)
[2018-08-28 04:49] LABS: MCV 91.5 fL (80.0-100.0); WBC 5.7 10x3/uL (4.8-10.8)
[2018-08-28 04:55] LABS: % SATURATION 7 % (15-55); IRON 25 ug/dl (35-150); TOTAL IRON BIND CAPACITY 330 ug/dl (260-445); UNSAT IRON BIND CAPACITY 305 ug/dl (150-375)
[2018-08-28 05:01] LABS: ALBUMIN 2.8 g/dL (3.4-5.0); ALKALINE PHOSPHATASE 48 U/L (46-116); ALT (SGPT) 10 U/L (10-68); BILIRUBIN - TOTAL 0.23 mg/dL (0.2-1.3); CALC OSMOLALITY 294 mosm/kg (275-300); CALCIUM 8.8 mg/dL (8.5-10.1); CARBON DIOXIDE 29.2 mmol/L (21.0-32.0); CHLORIDE - SERUM 104 mmol/L (98-107); CREATININE - SERUM 2.3 mg/dL (0.6-1.3); FERRITIN 30 ng/mL (3-244); GLUCOSE 211 mg/dL (74-106); MAGNESIUM - SERUM 1.8 mg/dL (1.8-2.4); PHOSPHOROUS 3.8 mg/dL (2.5-4.9); POTASSIUM - SERUM 5.6 mmol/L (3.5-5.1); PROTEIN - SERUM 7.5 g/dL (6.4-8.2); SODIUM 141 mmol/L (136-145); UREA NITROGEN 35 mg/dL (7-18); eGFR NON AFRICAN AMERICAN 24 mL/min (90-120)
[2018-08-28 05:07] LABS: TROPONIN-I < 0.017 ng/mL (0.000-0.060)
[2018-08-29] VITALS (95 sets, daily range): BP systolic 113–241; BP diastolic 60–122
[2018-08-29 04:42] LABS: BASOPHILS 0.1 % (0-2); EOSINOPHILS 0 % (0-7); HEMATOCRIT 25.7 % (36.0-48.0); IMMATURE GRANULOCYTES 0.3 % (0-5); LYMPHOCYTES 7.6 % (15-50); MCH 26.8 pg (26.0-34.0); MCHC 31.1 g/dL (31.0-37.0); MONOCYTES 4.4 % (2-11); NEUTROPHILS 87.6 % (40-80); PLATELET COUNT 117 10x3/uL (130-400); RBC 2.99 10x6/uL (4.00-5.40); RDW 16.1 % (11.5-14.5)
[2018-08-29 04:53] LABS: WBC 7.7 10x3/uL (4.8-10.8)
[2018-08-29 04:56] LABS: ANION GAP 15.2 mmol/L (8-16); CALCIUM 8.4 mg/dL (8.5-10.1); CARBON DIOXIDE 28.3 mmol/L (21.0-32.0); CREATININE - SERUM 2.1 mg/dL (0.6-1.3)
[2018-08-29 05:02] LABS: POTASSIUM - SERUM 4.5 mmol/L (3.5-5.1)
[2018-08-29 10:22] LABS: FOLATE (FOLIC ACID) - SERUM 9.7 ng/mL (>3.0)
[2018-08-30] VITALS (42 sets, daily range): BP systolic 97–199; BP diastolic 53–113
[2018-08-30 04:05] LABS: BASOPHILS 0.1 % (0-2); EOSINOPHILS 0 % (0-7); HEMATOCRIT 26.4 % (36.0-48.0); HEMOGLOBIN 8.1 g/dL (12-16); IMMATURE GRANULOCYTES 0.5 % (0-5); LYMPHOCYTES 4.7 % (15-50); MCH 26.6 pg (26.0-34.0); MCHC 30.7 g/dL (31.0-37.0); MCV 86.6 fL (80.0-100.0); MONOCYTES 5.6 % (2-11); NEUTROPHILS 89.1 % (40-80); PLATELET COUNT 118 10x3/uL (130-400); RBC 3.05 10x6/uL (4.00-5.40); RDW 16.5 % (11.5-14.5); WBC 9.5 10x3/uL (4.8-10.8)
[2018-08-30 04:23] LABS: ANION GAP 14.4 mmol/L (8-16); CARBON DIOXIDE 29.3 mmol/L (21.0-32.0); CREATININE - SERUM 2.2 mg/dL (0.6-1.3); MAGNESIUM - SERUM 1.7 mg/dL (1.8-2.4)
[2018-08-30 04:25] LABS: PHOSPHOROUS 5.4 mg/dL (2.5-4.9); POTASSIUM - SERUM 3.7 mmol/L (3.5-5.1)
[2018-08-31] VITALS (24 sets, daily range): BP systolic 88–156; BP diastolic 50–87
[2018-08-31 04:00] LABS: BASOPHILS 0.1 % (0-2); EOSINOPHILS 0.9 % (0-7); HEMATOCRIT 29.6 % (36.0-48.0); HEMOGLOBIN 9.1 g/dL (12-16); LYMPHOCYTES 5.3 % (15-50); MCH 26.6 pg (26.0-34.0); MCHC 30.7 g/dL (31.0-37.0); MCV 86.5 fL (80.0-100.0); MONOCYTES 6.8 % (2-11); NEUTROPHILS 85.9 % (40-80); PLATELET COUNT 130 10x3/uL (130-400); RBC 3.42 10x6/uL (4.00-5.40); RDW 16.8 % (11.5-14.5); WBC 10.1 10x3/uL (4.8-10.8)
[2018-08-31 04:06] LABS: CALCIUM 8.6 mg/dL (8.5-10.1); CARBON DIOXIDE 30.8 mmol/L (21.0-32.0); CREATININE - SERUM 2.1 mg/dL (0.6-1.3); POTASSIUM - SERUM 3.8 mmol/L (3.5-5.1)
[2018-08-31 05:24] LABS: MAGNESIUM - SERUM 2.5 mg/dL (1.8-2.4); PHOSPHOROUS 4.5 mg/dL (2.5-4.9)
[2018-09-01] VITALS (24 sets, daily range): BP systolic 121–174; BP diastolic 63–107
[2018-09-01 05:33] LABS: BASOPHILS 0.2 % (0-2); EOSINOPHILS 2.1 % (0-7); HEMATOCRIT 30.4 % (36.0-48.0); HEMOGLOBIN 9.2 g/dL (12-16); IMMATURE GRANULOCYTES 1.5 % (0-5); LYMPHOCYTES 5.2 % (15-50); MCH 26.7 pg (26.0-34.0); MCHC 30.3 g/dL (31.0-37.0); MCV 88.4 fL (80.0-100.0); PLATELET COUNT 128 10x3/uL (130-400); RBC 3.44 10x6/uL (4.00-5.40); RDW 17.1 % (11.5-14.5)
[2018-09-01 05:49] LABS: ANION GAP 10.6 mmol/L (8-16); CALCIUM 8.8 mg/dL (8.5-10.1); CARBON DIOXIDE 33.1 mmol/L (21.0-32.0); POTASSIUM - SERUM 3.7 mmol/L (3.5-5.1)
[2018-09-02] VITALS (24 sets, daily range): BP systolic 84–149; BP diastolic 44–82
[2018-09-02 06:39] LABS: BASOPHILS 0.2 % (0-2); EOSINOPHILS 3.1 % (0-7); HEMATOCRIT 30.1 % (36.0-48.0); IMMATURE GRANULOCYTES 1.7 % (0-5); LYMPHOCYTES 6.6 % (15-50); MCH 26.9 pg (26.0-34.0); MCHC 29.9 g/dL (31.0-37.0); MCV 89.9 fL (80.0-100.0); MONOCYTES 3.9 % (2-11); NEUTROPHILS 84.5 % (40-80); PLATELET COUNT 142 10x3/uL (130-400); RBC 3.35 10x6/uL (4.00-5.40); RDW 17.7 % (11.5-14.5); WBC 12.9 10x3/uL (4.8-10.8)
[2018-09-02 06:56] LABS: ALBUMIN 2.5 g/dL (3.4-5.0); ANION GAP 11.4 mmol/L (8-16); BILIRUBIN - TOTAL 0.2 mg/dL (0.2-1.3); CALCIUM 9.1 mg/dL (8.5-10.1); CARBON DIOXIDE 32.3 mmol/L (21.0-32.0); POTASSIUM - SERUM 3.7 mmol/L (3.5-5.1); PROTEIN - SERUM 6.9 g/dL (6.4-8.2)
[2018-09-03] VITALS (23 sets, daily range): BP systolic 88–134; BP diastolic 47–71; Ht 160 cm; Wt 114.3 kg
[2018-09-03 04:58] LABS: BASOPHILS 0.4 % (0-2); EOSINOPHILS 2.9 % (0-7); HEMATOCRIT 29.1 % (36.0-48.0); HEMOGLOBIN 8.6 g/dL (12-16); IMMATURE GRANULOCYTES 1.9 % (0-5); LYMPHOCYTES 7.6 % (15-50); MCH 26.9 pg (26.0-34.0); MCHC 29.6 g/dL (31.0-37.0); MCV 90.9 fL (80.0-100.0); MEAN PLATELET VOLUME 12.3 fL (7.4-10.4); MONOCYTES 3.7 % (2-11); NEUTROPHILS 83.5 % (40-80); PLATELET COUNT 144 10x3/uL (130-400); RDW 17.6 % (11.5-14.5); WBC 15.3 10x3/uL (4.8-10.8)
[2018-09-03 05:25] LABS: ALBUMIN 2.5 g/dL (3.4-5.0); BILIRUBIN - TOTAL 0.25 mg/dL (0.2-1.3); CALCIUM 9.1 mg/dL (8.5-10.1); CARBON DIOXIDE 33.1 mmol/L (21.0-32.0); PROTEIN - SERUM 6.8 g/dL (6.4-8.2)
[2018-09-03 05:26] LABS: ANION GAP 11.4 mmol/L (8-16); CREATININE - SERUM 2.6 mg/dL (0.6-1.3); POTASSIUM - SERUM 4.5 mmol/L (3.5-5.1)
[2018-09-03 15:23] LABS: ACID FAST SMEAR Negative (()); AFB SPECIMEN PROCESSING Concentration (())
[2018-09-04] VITALS (23 sets, daily range): BP systolic 90–163; BP diastolic 59–85
[2018-09-04 05:41] LABS: BASOPHILS 0.6 % (0-2); EOSINOPHILS 2.9 % (0-7); HEMATOCRIT 30.7 % (36.0-48.0); HEMOGLOBIN 9.1 g/dL (12-16); IMMATURE GRANULOCYTES 6.2 % (0-5); LYMPHOCYTES 13.8 % (15-50); MCH 26.9 pg (26.0-34.0); MCHC 29.6 g/dL (31.0-37.0); MCV 90.8 fL (80.0-100.0); MEAN PLATELET VOLUME 12.9 fL (7.4-10.4); MONOCYTES 9.2 % (2-11); NEUTROPHILS 67.3 % (40-80); PLATELET COUNT 158 10x3/uL (130-400); RBC 3.38 10x6/uL (4.00-5.40); RDW 18.2 % (11.5-14.5); WBC 18.8 10x3/uL (4.8-10.8)
[2018-09-04 06:06] LABS: ALBUMIN 2.4 g/dL (3.4-5.0); BILIRUBIN - TOTAL 0.29 mg/dL (0.2-1.3); CALCIUM 8.9 mg/dL (8.5-10.1); CARBON DIOXIDE 31.5 mmol/L (21.0-32.0); CREATININE - SERUM 2.7 mg/dL (0.6-1.3); MAGNESIUM - SERUM 2.6 mg/dL (1.8-2.4); POTASSIUM - SERUM 4.5 mmol/L (3.5-5.1); PROTEIN - SERUM 7.1 g/dL (6.4-8.2)
[2018-09-04 08:07] LABS: APTT 26.7 SECONDS (22.8-39.4); INR 1.06 (0.85-1.17); PROTIME 13.4 SECONDS (11.6-15.0)
[2018-09-04 12:17] LABS: FUNGUS STAIN Final report (())
[2018-09-05] VITALS (22 sets, daily range): BP systolic 101–187; BP diastolic 30–99
[2018-09-05 05:09] LABS: BASOPHILS 0.3 % (0-2); EOSINOPHILS 1.7 % (0-7); HEMATOCRIT 29.6 % (36.0-48.0); HEMOGLOBIN 8.7 g/dL (12-16); IMMATURE GRANULOCYTES 5.6 % (0-5); LYMPHOCYTES 11.3 % (15-50); MCHC 29.4 g/dL (31.0-37.0); MCV 91.9 fL (80.0-100.0); MONOCYTES 5.9 % (2-11); NEUTROPHILS 75.2 % (40-80); PLATELET COUNT 131 10x3/uL (130-400); RBC 3.22 10x6/uL (4.00-5.40); WBC 15.6 10x3/uL (4.8-10.8)
[2018-09-05 05:47] LABS: ALBUMIN 2.6 g/dL (3.4-5.0); ANION GAP 14.9 mmol/L (8-16); BILIRUBIN - TOTAL 0.19 mg/dL (0.2-1.3); CALCIUM 9.1 mg/dL (8.5-10.1); CARBON DIOXIDE 29.7 mmol/L (21.0-32.0); MAGNESIUM - SERUM 2.4 mg/dL (1.8-2.4); POTASSIUM - SERUM 4.6 mmol/L (3.5-5.1); PROTEIN - SERUM 7.3 g/dL (6.4-8.2)
[2018-09-05 05:51] LABS: CREATININE - SERUM 1.9 mg/dL (0.6-1.3)
[2018-09-05 17:58] LABS: HEMATOCRIT 33.3 % (36.0-48.0); HEMOGLOBIN 9.8 g/dL (12-16); MCH 27.2 pg (26.0-34.0); MCHC 29.4 g/dL (31.0-37.0); MCV 92.5 fL (80.0-100.0); MEAN PLATELET VOLUME 12.9 fL (7.4-10.4); PLATELET COUNT 190 10x3/uL (130-400); RDW 18.2 % (11.5-14.5); WBC 23.7 10x3/uL (4.8-10.8)
[2018-09-05 18:11] LABS: ALBUMIN 2.8 g/dL (3.4-5.0); ALKALINE PHOSPHATASE 85 U/L (46-116); ALT (SGPT) 57 U/L (10-68); BILIRUBIN - TOTAL 0.21 mg/dL (0.2-1.3); CALC OSMOLALITY 324 mosm/kg (275-300); CARBON DIOXIDE 29.6 mmol/L (21.0-32.0); CHLORIDE - SERUM 103 mmol/L (98-107); GLUCOSE 189 mg/dL (74-106); POTASSIUM - SERUM 4.8 mmol/L (3.5-5.1); SODIUM 144 mmol/L (136-145); UREA NITROGEN 106 mg/dL (7-18); eGFR NON AFRICAN AMERICAN 28 mL/min (90-120)
[2018-09-05 18:20] LABS: BASOPHILS 2 % (0-2); ELLIPTOCYTES OCC; EOSINOPHILS 1 % (0-7); LYMPHOCYTES 32 % (15-50); NEUTROPHILS 65 % (40-80); PLATELET ESTIMATE NORMAL; TARGET CELLS 1+
[2018-09-05 18:21] LABS: ROULEAUX OCC; TEAR DROP CELLS OCC
[2018-09-05 18:23] LABS: CKMB 0.3 U/L (0.0-3.6); CREATINE KINASE 64 UL (21-215); MAGNESIUM - SERUM 2.8 mg/dL (1.8-2.4); PHOSPHOROUS 5.4 mg/dL (2.5-4.9); PRO BNP 568 pg/mL (0-125); TROPONIN-I 0.017 ng/mL (0.000-0.060)
[2018-09-06] VITALS (19 sets, daily range): BP systolic 86–142; BP diastolic 53–84
[2018-09-06 05:04] LABS: BASOPHILS 0.4 % (0-2); EOSINOPHILS 1.1 % (0-7); HEMATOCRIT 31.6 % (36.0-48.0); HEMOGLOBIN 9.2 g/dL (12-16); IMMATURE GRANULOCYTES 6.6 % (0-5); LYMPHOCYTES 13.6 % (15-50); MCH 27.1 pg (26.0-34.0); MCHC 29.1 g/dL (31.0-37.0); MCV 93.2 fL (80.0-100.0); MEAN PLATELET VOLUME 13.2 fL (7.4-10.4); MONOCYTES 8.1 % (2-11); NEUTROPHILS 70.2 % (40-80); PLATELET COUNT 165 10x3/uL (130-400); RBC 3.39 10x6/uL (4.00-5.40); RDW 18.5 % (11.5-14.5)
[2018-09-06 05:06] LABS: WBC 17.4 10x3/uL (4.8-10.8)
[2018-09-06 05:25] LABS: ALBUMIN 2.7 g/dL (3.4-5.0); ANION GAP 10.6 mmol/L (8-16); BILIRUBIN - TOTAL 0.2 mg/dL (0.2-1.3); CALCIUM 9.3 mg/dL (8.5-10.1); CARBON DIOXIDE 32.8 mmol/L (21.0-32.0); CREATININE - SERUM 2.2 mg/dL (0.6-1.3); MAGNESIUM - SERUM 2.7 mg/dL (1.8-2.4); POTASSIUM - SERUM 4.4 mmol/L (3.5-5.1); PROTEIN - SERUM 7.6 g/dL (6.4-8.2)
[2018-09-07] VITALS (25 sets, daily range): BP systolic 91–126; BP diastolic 44–90
[2018-09-07 06:46] LABS: HEMATOCRIT 29.3 % (36.0-48.0); HEMOGLOBIN 8.5 g/dL (12-16); MCH 26.8 pg (26.0-34.0); MCV 92.4 fL (80.0-100.0); PLATELET COUNT 182 10x3/uL (130-400); RBC 3.17 10x6/uL (4.00-5.40); RDW 18.6 % (11.5-14.5); WBC 16.6 10x3/uL (4.8-10.8)
[2018-09-07 06:47] LABS: ALBUMIN 2.6 g/dL (3.4-5.0); ANION GAP 17.5 mmol/L (8-16); BASOPHILS 0.2 % (0-2); BILIRUBIN - TOTAL 0.27 mg/dL (0.2-1.3); CALCIUM 9.3 mg/dL (8.5-10.1); CARBON DIOXIDE 25.8 mmol/L (21.0-32.0); CREATININE - SERUM 2.4 mg/dL (0.6-1.3); EOSINOPHILS 3.2 % (0-7); LYMPHOCYTES 9.1 % (15-50); MAGNESIUM - SERUM 2.4 mg/dL (1.8-2.4); MEAN PLATELET VOLUME 0 fL (7.4-10.4); MONOCYTES 4.9 % (2-11); NEUTROPHILS 77.6 % (40-80); POTASSIUM - SERUM 4.3 mmol/L (3.5-5.1); PROTEIN - SERUM 7.3 g/dL (6.4-8.2); VANCOMYCIN - RANDOM 40.3 ug/mL (10.0-20.0)
[2018-09-08] VITALS (35 sets, daily range): BP systolic 83–120; BP diastolic 50–5614
[2018-09-08 05:27] LABS: BASOPHILS 0.2 % (0-2); EOSINOPHILS 0.8 % (0-7); HEMATOCRIT 26.2 % (36.0-48.0); HEMOGLOBIN 7.6 g/dL (12-16); IMMATURE GRANULOCYTES 2.2 % (0-5); LYMPHOCYTES 12.8 % (15-50); MCH 26.6 pg (26.0-34.0); MCV 91.6 fL (80.0-100.0); MEAN PLATELET VOLUME 10.7 fL (7.4-10.4); RBC 2.86 10x6/uL (4.00-5.40); RDW 18.6 % (11.5-14.5); WBC 15.7 10x3/uL (4.8-10.8)
[2018-09-08 05:29] LABS: PLATELET COUNT 113 10x3/uL (130-400)
[2018-09-08 05:42] LABS: ALBUMIN 2.4 g/dL (3.4-5.0); ANION GAP 15.6 mmol/L (8-16); BILIRUBIN - TOTAL 0.22 mg/dL (0.2-1.3); CARBON DIOXIDE 24.9 mmol/L (21.0-32.0); CREATININE - SERUM 2.5 mg/dL (0.6-1.3); MAGNESIUM - SERUM 2.5 mg/dL (1.8-2.4); POTASSIUM - SERUM 4.5 mmol/L (3.5-5.1); VANCOMYCIN - RANDOM 22.2 ug/mL (10.0-20.0)
[2018-09-08 07:58] LABS: BASOPHILS 0.1 % (0-2); HEMATOCRIT 26.9 % (36.0-48.0); HEMOGLOBIN 7.9 g/dL (12-16); IMMATURE GRANULOCYTES 2.6 % (0-5); LYMPHOCYTES 18.3 % (15-50); MCHC 29.4 g/dL (31.0-37.0); MCV 91.8 fL (80.0-100.0); MEAN PLATELET VOLUME 12.1 fL (7.4-10.4); MONOCYTES 7.5 % (2-11); NEUTROPHILS 70.5 % (40-80); PLATELET COUNT 104 10x3/uL (130-400); RBC 2.93 10x6/uL (4.00-5.40); RDW 18.5 % (11.5-14.5); WBC 16.7 10x3/uL (4.8-10.8)
[2018-09-09] VITALS (24 sets, daily range): BP systolic 56–165; BP diastolic 54–106
[2018-09-09 04:53] LABS: BASOPHILS 0.1 % (0-2); EOSINOPHILS 0.5 % (0-7); HEMATOCRIT 23.2 % (36.0-48.0); IMMATURE GRANULOCYTES 2.1 % (0-5); LYMPHOCYTES 7.6 % (15-50); MCHC 29.3 g/dL (31.0-37.0); MCV 92.1 fL (80.0-100.0); MONOCYTES 4.2 % (2-11); NEUTROPHILS 85.5 % (40-80); PLATELET COUNT 101 10x3/uL (130-400); RBC 2.52 10x6/uL (4.00-5.40); RDW 18.5 % (11.5-14.5); WBC 18.6 10x3/uL (4.8-10.8)
[2018-09-09 04:59] LABS: HEMOGLOBIN 6.8 g/dL (12-16)
[2018-09-09 05:27] LABS: ALBUMIN 2.6 g/dL (3.4-5.0); ANION GAP 16.7 mmol/L (8-16); BILIRUBIN - TOTAL 0.2 mg/dL (0.2-1.3); CALCIUM 9.3 mg/dL (8.5-10.1); POTASSIUM - SERUM 4.7 mmol/L (3.5-5.1); PROTEIN - SERUM 7.2 g/dL (6.4-8.2)
[2018-09-10] VITALS (22 sets, daily range): BP systolic 107–188; BP diastolic 55–92
[2018-09-10 02:24] LABS: HEMATOCRIT 31.4 % (36.0-48.0); HEMOGLOBIN 9.8 g/dL (12-16)
[2018-09-10 05:21] LABS: ALBUMIN 2.7 g/dL (3.4-5.0); ANION GAP 17.5 mmol/L (8-16); BILIRUBIN - TOTAL 0.24 mg/dL (0.2-1.3); CALCIUM 9.3 mg/dL (8.5-10.1); CARBON DIOXIDE 20.7 mmol/L (21.0-32.0); CREATININE - SERUM 1.7 mg/dL (0.6-1.3); MAGNESIUM - SERUM 2.4 mg/dL (1.8-2.4); PHOSPHOROUS 4.8 mg/dL (2.5-4.9); POTASSIUM - SERUM 4.2 mmol/L (3.5-5.1); PROTEIN - SERUM 7.4 g/dL (6.4-8.2)
[2018-09-10 07:35] LABS: BASOPHILS 0.1 % (0-2); EOSINOPHILS 0.9 % (0-7); HEMATOCRIT 29.8 % (36.0-48.0); HEMOGLOBIN 9.2 g/dL (12-16); LYMPHOCYTES 11.7 % (15-50); MCH 27.9 pg (26.0-34.0); MCHC 30.9 g/dL (31.0-37.0); MCV 90.3 fL (80.0-100.0); MONOCYTES 3.5 % (2-11); NEUTROPHILS 81.8 % (40-80); PLATELET COUNT 83 10x3/uL (130-400); RDW 18.1 % (11.5-14.5); WBC 15.4 10x3/uL (4.8-10.8)
[2018-09-11] VITALS (24 sets, daily range): BP systolic 110–190; BP diastolic 61–104
[2018-09-11 05:34] LABS: BASOPHILS 0.1 % (0-2); EOSINOPHILS 0.4 % (0-7); HEMATOCRIT 31.2 % (36.0-48.0); HEMOGLOBIN 9.4 g/dL (12-16); IMMATURE GRANULOCYTES 1.3 % (0-5); LYMPHOCYTES 7.3 % (15-50); MCH 27.9 pg (26.0-34.0); MCHC 30.1 g/dL (31.0-37.0); MONOCYTES 2.4 % (2-11); NEUTROPHILS 88.5 % (40-80); RBC 3.37 10x6/uL (4.00-5.40); RDW 18.7 % (11.5-14.5); WBC 16.3 10x3/uL (4.8-10.8)
[2018-09-11 05:44] LABS: MCV 92.6 fL (80.0-100.0); PLATELET COUNT 101 10x3/uL (130-400)
[2018-09-11 05:53] LABS: CALCIUM 9.1 mg/dL (8.5-10.1); CARBON DIOXIDE 19.6 mmol/L (21.0-32.0); CREATININE - SERUM 1.6 mg/dL (0.6-1.3); POTASSIUM - SERUM 4.6 mmol/L (3.5-5.1); VANCOMYCIN - RANDOM 17.5 ug/mL (10.0-20.0)
[2018-09-11 09:19] LABS: VIRAL - RESULT No virus isolated. (())
[2018-09-12] VITALS (23 sets, daily range): BP systolic 110–195; BP diastolic 10–115
[2018-09-12 04:50] LABS: CALCIUM 9.6 mg/dL (8.5-10.1); CARBON DIOXIDE 18.1 mmol/L (21.0-32.0); CREATININE - SERUM 1.8 mg/dL (0.6-1.3); MAGNESIUM - SERUM 2.4 mg/dL (1.8-2.4); PHOSPHOROUS 5.2 mg/dL (2.5-4.9); POTASSIUM - SERUM 4.1 mmol/L (3.5-5.1)
[2018-09-12 05:20] LABS: HEMATOCRIT 35.5 % (36.0-48.0); HEMOGLOBIN 10.6 g/dL (12-16); MCHC 29.9 g/dL (31.0-37.0); MCV 93.7 fL (80.0-100.0); PLATELET COUNT 124 10x3/uL (130-400); RBC 3.79 10x6/uL (4.00-5.40); RDW 18.9 % (11.5-14.5); WBC 20.4 10x3/uL (4.8-10.8)
[2018-09-12 05:53] LABS: LYMPHOCYTES 5 % (15-50); MONOCYTES 3 % (2-11); NEUTROPHILS 91 % (40-80); PLATELET ESTIMATE DECREASED; PLATELET MORPHOLOGY GIANT PLTS PRESENT
[2018-09-13] VITALS (24 sets, daily range): BP systolic 136–203; BP diastolic 79–117
[2018-09-13 04:35] LABS: BASOPHILS 0.1 % (0-2); EOSINOPHILS 0.3 % (0-7); HEMATOCRIT 34.8 % (36.0-48.0); HEMOGLOBIN 10.4 g/dL (12-16); IMMATURE GRANULOCYTES 0.6 % (0-5); LYMPHOCYTES 6.3 % (15-50); MCH 27.9 pg (26.0-34.0); MCHC 29.9 g/dL (31.0-37.0); MCV 93.3 fL (80.0-100.0); MONOCYTES 2.8 % (2-11); NEUTROPHILS 89.9 % (40-80); PLATELET COUNT 114 10x3/uL (130-400); RBC 3.73 10x6/uL (4.00-5.40); RDW 18.8 % (11.5-14.5); WBC 15.6 10x3/uL (4.8-10.8)
[2018-09-13 05:41] LABS: ANION GAP 16.4 mmol/L (8-16); CALCIUM 9.9 mg/dL (8.5-10.1); CARBON DIOXIDE 19.9 mmol/L (21.0-32.0); CREATININE - SERUM 1.5 mg/dL (0.6-1.3); MAGNESIUM - SERUM 2.2 mg/dL (1.8-2.4); PHOSPHOROUS 4.8 mg/dL (2.5-4.9); POTASSIUM - SERUM 4.3 mmol/L (3.5-5.1)
[2018-09-13 14:43] LABS: INR 1.07 (0.85-1.17); PROTIME 13.5 SECONDS (11.6-15.0)
[2018-09-14] VITALS (25 sets, daily range): BP systolic 120–195; BP diastolic 77–101
[2018-09-14 04:39] LABS: BASOPHILS 0.1 % (0-2); EOSINOPHILS 0.3 % (0-7); HEMOGLOBIN 10.5 g/dL (12-16); IMMATURE GRANULOCYTES 0.6 % (0-5); LYMPHOCYTES 6.2 % (15-50); MCH 28.5 pg (26.0-34.0); MCHC 30.9 g/dL (31.0-37.0); MCV 92.4 fL (80.0-100.0); MONOCYTES 3.5 % (2-11); NEUTROPHILS 89.3 % (40-80); PLATELET COUNT 113 10x3/uL (130-400); RBC 3.68 10x6/uL (4.00-5.40); WBC 14.9 10x3/uL (4.8-10.8)
[2018-09-14 04:56] LABS: ALBUMIN 2.8 g/dL (3.4-5.0); ANION GAP 19.3 mmol/L (8-16); BILIRUBIN - TOTAL 0.27 mg/dL (0.2-1.3); CALCIUM 9.4 mg/dL (8.5-10.1); CARBON DIOXIDE 18.7 mmol/L (21.0-32.0); CREATININE - SERUM 1.4 mg/dL (0.6-1.3); MAGNESIUM - SERUM 1.9 mg/dL (1.8-2.4); PHOSPHOROUS 4.5 mg/dL (2.5-4.9); PROTEIN - SERUM 7.4 g/dL (6.4-8.2)
[2018-09-15] VITALS (24 sets, daily range): BP systolic 122–171; BP diastolic 84–103
[2018-09-15 05:58] LABS: BASOPHILS 0.1 % (0-2); EOSINOPHILS 2.2 % (0-7); HEMATOCRIT 33.2 % (36.0-48.0); IMMATURE GRANULOCYTES 0.4 % (0-5); LYMPHOCYTES 7.3 % (15-50); MCH 28.1 pg (26.0-34.0); MCHC 30.1 g/dL (31.0-37.0); MCV 93.3 fL (80.0-100.0); PLATELET COUNT 134 10x3/uL (130-400); RBC 3.56 10x6/uL (4.00-5.40); RDW 19.4 % (11.5-14.5)
[2018-09-15 06:03] LABS: ALBUMIN 2.6 g/dL (3.4-5.0); ANION GAP 17.2 mmol/L (8-16); BILIRUBIN - TOTAL 0.34 mg/dL (0.2-1.3); CALCIUM 9.2 mg/dL (8.5-10.1); CARBON DIOXIDE 19.3 mmol/L (21.0-32.0); CREATININE - SERUM 1.4 mg/dL (0.6-1.3); POTASSIUM - SERUM 3.5 mmol/L (3.5-5.1)
[2018-09-16] VITALS (24 sets, daily range): BP systolic 103–186; BP diastolic 57–95
[2018-09-16 06:32] LABS: ALBUMIN 2.4 g/dL (3.4-5.0); ANION GAP 19.7 mmol/L (8-16); BILIRUBIN - TOTAL 0.38 mg/dL (0.2-1.3); CALCIUM 8.5 mg/dL (8.5-10.1); CARBON DIOXIDE 16.9 mmol/L (21.0-32.0); CREATININE - SERUM 1.2 mg/dL (0.6-1.3); PHOSPHOROUS 3.1 mg/dL (2.5-4.9); POTASSIUM - SERUM 3.6 mmol/L (3.5-5.1); PROTEIN - SERUM 6.5 g/dL (6.4-8.2)
[2018-09-17] VITALS (25 sets, daily range): BP systolic 111–190; BP diastolic 71–108
[2018-09-17 05:26] LABS: BASOPHILS 0.1 % (0-2); EOSINOPHILS 0.5 % (0-7); HEMATOCRIT 28.4 % (36.0-48.0); HEMOGLOBIN 8.9 g/dL (12-16); IMMATURE GRANULOCYTES 0.3 % (0-5); LYMPHOCYTES 6.9 % (15-50); MCH 28.2 pg (26.0-34.0); MCHC 31.3 g/dL (31.0-37.0); MCV 89.9 fL (80.0-100.0); NEUTROPHILS 86.2 % (40-80); RBC 3.16 10x6/uL (4.00-5.40); RDW 18.9 % (11.5-14.5)
[2018-09-17 05:33] LABS: PLATELET COUNT 100 10x3/uL (130-400)
[2018-09-17 05:36] LABS: CALCIUM 8.6 mg/dL (8.5-10.1); CREATININE - SERUM 0.9 mg/dL (0.6-1.3); POTASSIUM - SERUM 3.4 mmol/L (3.5-5.1)
[2018-09-17 05:46] LABS: CARBON DIOXIDE 22.4 mmol/L (21.0-32.0)
[2018-09-18] VITALS (23 sets, daily range): BP systolic 134–189; BP diastolic 72–98
[2018-09-18 05:57] LABS: BASOPHILS 0.2 % (0-2); EOSINOPHILS 2.2 % (0-7); HEMATOCRIT 26.4 % (36.0-48.0); HEMOGLOBIN 8.1 g/dL (12-16); IMMATURE GRANULOCYTES 0.2 % (0-5); LYMPHOCYTES 8.4 % (15-50); MCH 28.2 pg (26.0-34.0); MCHC 30.7 g/dL (31.0-37.0); MONOCYTES 5.8 % (2-11); NEUTROPHILS 83.2 % (40-80); PLATELET COUNT 98 10x3/uL (130-400); RBC 2.87 10x6/uL (4.00-5.40); RDW 19.3 % (11.5-14.5)
[2018-09-18 06:20] LABS: ANION GAP 11.9 mmol/L (8-16); CALCIUM 8.4 mg/dL (8.5-10.1); CARBON DIOXIDE 25.3 mmol/L (21.0-32.0); CREATININE - SERUM 0.9 mg/dL (0.6-1.3); POTASSIUM - SERUM 4.2 mmol/L (3.5-5.1)
[2018-09-19] VITALS (23 sets, daily range): BP systolic 134–199; BP diastolic 72–121
[2018-09-19 05:48] LABS: BASOPHILS 0.2 % (0-2); EOSINOPHILS 0.9 % (0-7); HEMATOCRIT 26.6 % (36.0-48.0); HEMOGLOBIN 8.2 g/dL (12-16); IMMATURE GRANULOCYTES 0.2 % (0-5); LYMPHOCYTES 8.3 % (15-50); MCH 28.3 pg (26.0-34.0); MCHC 30.8 g/dL (31.0-37.0); MCV 91.7 fL (80.0-100.0); MEAN PLATELET VOLUME 12.5 fL (7.4-10.4); MONOCYTES 5.7 % (2-11); NEUTROPHILS 84.7 % (40-80); PLATELET COUNT 110 10x3/uL (130-400); RDW 19.2 % (11.5-14.5); WBC 4.2 10x3/uL (4.8-10.8)
[2018-09-19 06:31] LABS: ANION GAP 12.1 mmol/L (8-16); CALCIUM 8.5 mg/dL (8.5-10.1); CARBON DIOXIDE 26.1 mmol/L (21.0-32.0); CREATININE - SERUM 0.9 mg/dL (0.6-1.3); POTASSIUM - SERUM 4.2 mmol/L (3.5-5.1); T4 THYROXIN - FREE 1.13 ng/dL (0.76-1.46); THYROID STIMULATING HORMONE 0.8 uIU/mL (0.36-3.74)
[2018-09-20] VITALS (20 sets, daily range): BP systolic 155–180; BP diastolic 74–98
[2018-09-20 05:42] LABS: BASOPHILS 0.2 % (0-2); HEMATOCRIT 28.5 % (36.0-48.0); HEMOGLOBIN 8.7 g/dL (12-16); IMMATURE GRANULOCYTES 0.2 % (0-5); LYMPHOCYTES 10.3 % (15-50); MCH 28.1 pg (26.0-34.0); MCHC 30.5 g/dL (31.0-37.0); MCV 91.9 fL (80.0-100.0); MEAN PLATELET VOLUME 13.2 fL (7.4-10.4); MONOCYTES 8.8 % (2-11); NEUTROPHILS 79.5 % (40-80); PLATELET COUNT 128 10x3/uL (130-400); RDW 19.1 % (11.5-14.5); WBC 4.8 10x3/uL (4.8-10.8)
[2018-09-20 06:05] LABS: CALC OSMOLALITY 287 mosm/kg (275-300); CARBON DIOXIDE 30.2 mmol/L (21.0-32.0); CHLORIDE - SERUM 103 mmol/L (98-107); CREATININE - SERUM 0.8 mg/dL (0.6-1.3); SODIUM 139 mmol/L (136-145); UREA NITROGEN 23 mg/dL (7-18); eGFR NON AFRICAN AMERICAN 80 mL/min (90-120)
[2018-09-20 06:06] LABS: GLUCOSE 198 mg/dL (74-106)
[2018-09-21] VITALS (23 sets, daily range): BP systolic 119–191; BP diastolic 57–108
[2018-09-21 04:56] LABS: BASOPHILS 0.2 % (0-2); EOSINOPHILS 2.1 % (0-7); HEMATOCRIT 27.8 % (36.0-48.0); HEMOGLOBIN 8.4 g/dL (12-16); IMMATURE GRANULOCYTES 0.2 % (0-5); LYMPHOCYTES 8.9 % (15-50); MCH 28.3 pg (26.0-34.0); MCHC 30.2 g/dL (31.0-37.0); MCV 93.6 fL (80.0-100.0); MONOCYTES 8.4 % (2-11); NEUTROPHILS 80.2 % (40-80); PLATELET COUNT 106 10x3/uL (130-400); RBC 2.97 10x6/uL (4.00-5.40); RDW 19.3 % (11.5-14.5); WBC 4.4 10x3/uL (4.8-10.8)
[2018-09-21 05:11] LABS: CALC OSMOLALITY 287 mosm/kg (275-300); CALCIUM 8.7 mg/dL (8.5-10.1); CARBON DIOXIDE 30.7 mmol/L (21.0-32.0); CHLORIDE - SERUM 103 mmol/L (98-107); CREATININE - SERUM 0.7 mg/dL (0.6-1.3); GLUCOSE 234 mg/dL (74-106); POTASSIUM - SERUM 3.9 mmol/L (3.5-5.1); SODIUM 139 mmol/L (136-145); UREA NITROGEN 18 mg/dL (7-18); eGFR NON AFRICAN AMERICAN > 90 mL/min (90-120)
[2018-09-22] VITALS (25 sets, daily range): BP systolic 127–208; BP diastolic 50–105
[2018-09-22 05:30] LABS: BASOPHILS 0.2 % (0-2); EOSINOPHILS 0.5 % (0-7); HEMATOCRIT 28.2 % (36.0-48.0); HEMOGLOBIN 8.4 g/dL (12-16); MCHC 29.8 g/dL (31.0-37.0); MEAN PLATELET VOLUME 11.8 fL (7.4-10.4); MONOCYTES 5.5 % (2-11); NEUTROPHILS 83.8 % (40-80); PLATELET COUNT 109 10x3/uL (130-400); RDW 19.6 % (11.5-14.5)
[2018-09-22 05:34] LABS: ANION GAP 9.1 mmol/L (8-16); CALCIUM 8.4 mg/dL (8.5-10.1); CARBON DIOXIDE 33.1 mmol/L (21.0-32.0); POTASSIUM - SERUM 4.2 mmol/L (3.5-5.1)
[2018-09-22 05:35] LABS: CREATININE - SERUM 0.9 mg/dL (0.6-1.3)
[2018-09-23] VITALS (26 sets, daily range): BP systolic 123–206; BP diastolic 53–123
[2018-09-23 04:16] LABS: BASOPHILS 0 % (0-2); EOSINOPHILS 0 % (0-7); HEMATOCRIT 28.7 % (36.0-48.0); HEMOGLOBIN 8.7 g/dL (12-16); IMMATURE GRANULOCYTES 0.2 % (0-5); LYMPHOCYTES 10.9 % (15-50); MCH 28.3 pg (26.0-34.0); MCHC 30.3 g/dL (31.0-37.0); MCV 93.5 fL (80.0-100.0); MEAN PLATELET VOLUME 12.7 fL (7.4-10.4); MONOCYTES 4.2 % (2-11); NEUTROPHILS 84.7 % (40-80); PLATELET COUNT 123 10x3/uL (130-400); RBC 3.07 10x6/uL (4.00-5.40); RDW 18.8 % (11.5-14.5); WBC 4.3 10x3/uL (4.8-10.8)
[2018-09-23 04:59] LABS: ANION GAP 8.4 mmol/L (8-16); CARBON DIOXIDE 33.9 mmol/L (21.0-32.0); CREATININE - SERUM 0.9 mg/dL (0.6-1.3); POTASSIUM - SERUM 4.3 mmol/L (3.5-5.1)
[2018-09-24] VITALS (23 sets, daily range): BP systolic 123–187; BP diastolic 72–112
[2018-09-24 05:37] LABS: BASOPHILS 0 % (0-2); EOSINOPHILS 0 % (0-7); HEMATOCRIT 28.6 % (36.0-48.0); HEMOGLOBIN 8.6 g/dL (12-16); IMMATURE GRANULOCYTES 0.4 % (0-5); MCH 28.2 pg (26.0-34.0); MCHC 30.1 g/dL (31.0-37.0); MCV 93.8 fL (80.0-100.0); MONOCYTES 6.5 % (2-11); NEUTROPHILS 83.1 % (40-80); PLATELET COUNT 119 10x3/uL (130-400); RBC 3.05 10x6/uL (4.00-5.40); RDW 18.9 % (11.5-14.5); WBC 4.6 10x3/uL (4.8-10.8)
[2018-09-24 05:55] LABS: ANION GAP 10.1 mmol/L (8-16); CARBON DIOXIDE 30.8 mmol/L (21.0-32.0); PHOSPHOROUS 3.7 mg/dL (2.5-4.9); POTASSIUM - SERUM 4.9 mmol/L (3.5-5.1)
[2018-09-25] VITALS (22 sets, daily range): BP systolic 142–200; BP diastolic 85–135
[2018-09-25 05:04] LABS: BASOPHILS 0 % (0-2); EOSINOPHILS 0 % (0-7); HEMATOCRIT 29.6 % (36.0-48.0); IMMATURE GRANULOCYTES 0.8 % (0-5); LYMPHOCYTES 12.1 % (15-50); MCH 28.3 pg (26.0-34.0); MCHC 30.4 g/dL (31.0-37.0); MCV 93.1 fL (80.0-100.0); MEAN PLATELET VOLUME 12.1 fL (7.4-10.4); NEUTROPHILS 81.1 % (40-80); PLATELET COUNT 123 10x3/uL (130-400); RBC 3.18 10x6/uL (4.00-5.40); RDW 18.5 % (11.5-14.5)
[2018-09-25 05:10] LABS: APTT 25.7 SECONDS (22.8-39.4)
[2018-09-25 05:11] LABS: D-DIMER-QUANTITATIVE 0.53 ug/mLFEU (0.20-0.54)
[2018-09-25 05:24] LABS: ANION GAP 8.7 mmol/L (8-16); CALCIUM 9.4 mg/dL (8.5-10.1); CARBON DIOXIDE 32.2 mmol/L (21.0-32.0); MAGNESIUM - SERUM 2.1 mg/dL (1.8-2.4); PHOSPHOROUS 4.2 mg/dL (2.5-4.9); POTASSIUM - SERUM 4.9 mmol/L (3.5-5.1)
[2018-09-25 10:21] LABS: FUNGUS CULTURE RESULT 1 Candida albicans (())
[2018-09-26] VITALS (23 sets, daily range): BP systolic 148–212; BP diastolic 80–134
[2018-09-26 05:21] LABS: BASOPHILS 0 % (0-2); EOSINOPHILS 0 % (0-7); HEMATOCRIT 31.6 % (36.0-48.0); HEMOGLOBIN 9.7 g/dL (12-16); IMMATURE GRANULOCYTES 0.5 % (0-5); LYMPHOCYTES 10.1 % (15-50); MCH 28.5 pg (26.0-34.0); MCHC 30.7 g/dL (31.0-37.0); MCV 92.9 fL (80.0-100.0); MEAN PLATELET VOLUME 12.1 fL (7.4-10.4); MONOCYTES 6.6 % (2-11); NEUTROPHILS 82.8 % (40-80); PLATELET COUNT 124 10x3/uL (130-400); RDW 18.9 % (11.5-14.5); WBC 5.7 10x3/uL (4.8-10.8)
[2018-09-26 05:40] LABS: ANION GAP 10.5 mmol/L (8-16); CARBON DIOXIDE 29.8 mmol/L (21.0-32.0); CREATININE - SERUM 1.1 mg/dL (0.6-1.3); POTASSIUM - SERUM 5.3 mmol/L (3.5-5.1)
[2018-09-27] VITALS (25 sets, daily range): BP systolic 143–188; BP diastolic 84–120
[2018-09-27 05:23] LABS: BASOPHILS 0.1 % (0-2); EOSINOPHILS 0.1 % (0-7); HEMATOCRIT 33.5 % (36.0-48.0); HEMOGLOBIN 10.3 g/dL (12-16); IMMATURE GRANULOCYTES 1.2 % (0-5); LYMPHOCYTES 11.7 % (15-50); MCH 28.5 pg (26.0-34.0); MCHC 30.7 g/dL (31.0-37.0); MCV 92.5 fL (80.0-100.0); NEUTROPHILS 78.9 % (40-80); PLATELET COUNT 132 10x3/uL (130-400); RBC 3.62 10x6/uL (4.00-5.40); RDW 18.6 % (11.5-14.5)
[2018-09-27 05:25] LABS: WBC 7.8 10x3/uL (4.8-10.8)
[2018-09-27 05:58] LABS: ANION GAP 10.1 mmol/L (8-16); CALCIUM 9.1 mg/dL (8.5-10.1); CARBON DIOXIDE 28.7 mmol/L (21.0-32.0); CREATININE - SERUM 1.1 mg/dL (0.6-1.3); POTASSIUM - SERUM 5.8 mmol/L (3.5-5.1)
[2018-09-28] VITALS (22 sets, daily range): BP systolic 143–192; BP diastolic 78–113
[2018-09-28 04:05] LABS: ANION GAP 12.8 mmol/L (8-16); CALCIUM 9.4 mg/dL (8.5-10.1); CARBON DIOXIDE 27.7 mmol/L (21.0-32.0); CREATININE - SERUM 1.1 mg/dL (0.6-1.3); POTASSIUM - SERUM 5.5 mmol/L (3.5-5.1)
[2018-09-29] VITALS (23 sets, daily range): BP systolic 132–175; BP diastolic 76–105
[2018-09-29 05:10] LABS: BASOPHILS 0 % (0-2); EOSINOPHILS 0 % (0-7); HEMATOCRIT 33.7 % (36.0-48.0); HEMOGLOBIN 10.6 g/dL (12-16); IMMATURE GRANULOCYTES 0.8 % (0-5); LYMPHOCYTES 5.9 % (15-50); MCH 28.6 pg (26.0-34.0); MCHC 31.5 g/dL (31.0-37.0); MCV 91.1 fL (80.0-100.0); MONOCYTES 5.5 % (2-11); NEUTROPHILS 87.8 % (40-80); PLATELET COUNT 131 10x3/uL (130-400); RDW 17.9 % (11.5-14.5); WBC 8.9 10x3/uL (4.8-10.8)
[2018-09-29 05:22] LABS: ANION GAP 9.4 mmol/L (8-16); CALCIUM 9.3 mg/dL (8.5-10.1); CARBON DIOXIDE 28.6 mmol/L (21.0-32.0); CREATININE - SERUM 1.1 mg/dL (0.6-1.3)
[2018-09-29 20:45] LABS: ALBUMIN 2.9 g/dL (3.4-5.0); ANION GAP 10.9 mmol/L (8-16); BILIRUBIN - TOTAL 0.31 mg/dL (0.2-1.3); CALCIUM 9.1 mg/dL (8.5-10.1); CREATININE - SERUM 1.2 mg/dL (0.6-1.3); POTASSIUM - SERUM 4.9 mmol/L (3.5-5.1); PROTEIN - SERUM 6.8 g/dL (6.4-8.2)
[2018-09-30] VITALS (24 sets, daily range): BP systolic 117–168; BP diastolic 72–118
[2018-09-30 05:24] LABS: BASOPHILS 0 % (0-2); EOSINOPHILS 0 % (0-7); HEMATOCRIT 33.3 % (36.0-48.0); HEMOGLOBIN 10.5 g/dL (12-16); IMMATURE GRANULOCYTES 0.6 % (0-5); LYMPHOCYTES 5.7 % (15-50); MCHC 31.5 g/dL (31.0-37.0); MONOCYTES 5.3 % (2-11); NEUTROPHILS 88.4 % (40-80); PLATELET COUNT 123 10x3/uL (130-400); RBC 3.62 10x6/uL (4.00-5.40); RDW 17.8 % (11.5-14.5); WBC 7.8 10x3/uL (4.8-10.8)
[2018-09-30 05:37] LABS: ANION GAP 7.2 mmol/L (8-16); CALCIUM 8.9 mg/dL (8.5-10.1); CARBON DIOXIDE 31.8 mmol/L (21.0-32.0); CREATININE - SERUM 1.1 mg/dL (0.6-1.3); PHOSPHOROUS 4.2 mg/dL (2.5-4.9)
[2018-09-30 07:08] LABS: FUNGUS MYCOLOGY CULTURE Final report (())
[2018-09-30 09:08] LABS: ANTI-GLOMERULAR BASMENT MEMBRN 5 units (0-20)
[2018-09-30 12:09] LABS: ANA REFLEX - DIRECT Negative (Negative)
[2018-10-01] VITALS (25 sets, daily range): BP systolic 103–175; BP diastolic 48–106
[2018-10-01 04:40] LABS: BASOPHILS 0 % (0-2); EOSINOPHILS 0 % (0-7); HEMATOCRIT 35.5 % (36.0-48.0); HEMOGLOBIN 11.1 g/dL (12-16); IMMATURE GRANULOCYTES 0.2 % (0-5); MCH 28.9 pg (26.0-34.0); MCHC 31.3 g/dL (31.0-37.0); MCV 92.4 fL (80.0-100.0); MONOCYTES 4.4 % (2-11); NEUTROPHILS 89.4 % (40-80); PLATELET COUNT 115 10x3/uL (130-400); RBC 3.84 10x6/uL (4.00-5.40); RDW 17.8 % (11.5-14.5); WBC 8.1 10x3/uL (4.8-10.8)
[2018-10-01 05:21] LABS: ALBUMIN 2.9 g/dL (3.4-5.0); ANION GAP 7.9 mmol/L (8-16); BILIRUBIN - TOTAL 0.33 mg/dL (0.2-1.3); CALCIUM 9.3 mg/dL (8.5-10.1); CARBON DIOXIDE 32.4 mmol/L (21.0-32.0); CREATININE - SERUM 1.1 mg/dL (0.6-1.3); POTASSIUM - SERUM 4.3 mmol/L (3.5-5.1); PROTEIN - SERUM 6.8 g/dL (6.4-8.2)
[2018-10-01 14:19] LABS: ANCA - ANTIMYELOPEROXIDASE <9.0 U/mL (0.0-9.0); ANCA - ANTIPROTEINASE 3 <3.5 U/mL (0.0-3.5); ANCA - ATYPICAL <1:20 titer (Neg:<1:20); ANCA - CYTOPLASMIC <1:20 titer (Neg:<1:20); ANCA - PERINUCLEAR <1:20 titer (Neg:<1:20)
[2018-10-02] VITALS (23 sets, daily range): BP systolic 111–170; BP diastolic 51–105
[2018-10-02 05:56] LABS: BASOPHILS 0 % (0-2); EOSINOPHILS 0 % (0-7); HEMATOCRIT 34.1 % (36.0-48.0); HEMOGLOBIN 10.8 g/dL (12-16); IMMATURE GRANULOCYTES 0.4 % (0-5); LYMPHOCYTES 5.5 % (15-50); MCH 28.9 pg (26.0-34.0); MCHC 31.7 g/dL (31.0-37.0); MCV 91.2 fL (80.0-100.0); MONOCYTES 5.8 % (2-11); NEUTROPHILS 88.3 % (40-80); PLATELET COUNT 108 10x3/uL (130-400); RBC 3.74 10x6/uL (4.00-5.40); RDW 17.7 % (11.5-14.5); WBC 7.2 10x3/uL (4.8-10.8)
[2018-10-02 06:16] LABS: ALBUMIN 2.8 g/dL (3.4-5.0); ANION GAP 8.7 mmol/L (8-16); BILIRUBIN - TOTAL 0.33 mg/dL (0.2-1.3); CALCIUM 9.1 mg/dL (8.5-10.1); CARBON DIOXIDE 31.5 mmol/L (21.0-32.0); CREATININE - SERUM 1.2 mg/dL (0.6-1.3); POTASSIUM - SERUM 4.2 mmol/L (3.5-5.1); PROTEIN - SERUM 6.4 g/dL (6.4-8.2)
[2018-10-03] VITALS (22 sets, daily range): BP systolic 129–188; BP diastolic 75–122
[2018-10-03 05:49] LABS: BASOPHILS 0 % (0-2); EOSINOPHILS 0 % (0-7); HEMATOCRIT 34.3 % (36.0-48.0); HEMOGLOBIN 10.8 g/dL (12-16); IMMATURE GRANULOCYTES 0.4 % (0-5); LYMPHOCYTES 4.9 % (15-50); MCH 28.6 pg (26.0-34.0); MCHC 31.5 g/dL (31.0-37.0); MONOCYTES 6.7 % (2-11); PLATELET COUNT 125 10x3/uL (130-400); RBC 3.77 10x6/uL (4.00-5.40); RDW 17.6 % (11.5-14.5)
[2018-10-03 05:50] LABS: WBC 11.3 10x3/uL (4.8-10.8)
[2018-10-03 06:39] LABS: ALBUMIN 2.7 g/dL (3.4-5.0); ANION GAP 10.4 mmol/L (8-16); BILIRUBIN - TOTAL 0.34 mg/dL (0.2-1.3); CARBON DIOXIDE 29.8 mmol/L (21.0-32.0); CREATININE - SERUM 1.3 mg/dL (0.6-1.3); POTASSIUM - SERUM 4.2 mmol/L (3.5-5.1); PROTEIN - SERUM 6.5 g/dL (6.4-8.2)
[2018-10-04] VITALS (14 sets, daily range): BP systolic 118–183; BP diastolic 63–121
[2018-10-04 04:10] LABS: BASOPHILS 0 % (0-2); EOSINOPHILS 0 % (0-7); HEMATOCRIT 32.6 % (36.0-48.0); HEMOGLOBIN 10.5 g/dL (12-16); IMMATURE GRANULOCYTES 0.2 % (0-5); LYMPHOCYTES 3.9 % (15-50); MCH 29.1 pg (26.0-34.0); MCHC 32.2 g/dL (31.0-37.0); MCV 90.3 fL (80.0-100.0); MONOCYTES 6.6 % (2-11); NEUTROPHILS 89.3 % (40-80); PLATELET COUNT 109 10x3/uL (130-400); RBC 3.61 10x6/uL (4.00-5.40); RDW 17.5 % (11.5-14.5); WBC 10.5 10x3/uL (4.8-10.8)
[2018-10-04 04:24] LABS: ALBUMIN 2.7 g/dL (3.4-5.0); ANION GAP 11.9 mmol/L (8-16); BILIRUBIN - TOTAL 0.35 mg/dL (0.2-1.3); CALCIUM 9.1 mg/dL (8.5-10.1); CARBON DIOXIDE 30.2 mmol/L (21.0-32.0); CREATININE - SERUM 1.1 mg/dL (0.6-1.3); POTASSIUM - SERUM 4.1 mmol/L (3.5-5.1); PROTEIN - SERUM 6.4 g/dL (6.4-8.2)
[2018-10-05 04:00] VITALS: BP 146/75
[2018-10-05 05:08] LABS: BASOPHILS 0 % (0-2); EOSINOPHILS 0 % (0-7); HEMATOCRIT 34.2 % (36.0-48.0); HEMOGLOBIN 10.9 g/dL (12-16); IMMATURE GRANULOCYTES 0.3 % (0-5); LYMPHOCYTES 3.5 % (15-50); MCH 28.7 pg (26.0-34.0); MCHC 31.9 g/dL (31.0-37.0); MONOCYTES 4.1 % (2-11); NEUTROPHILS 92.1 % (40-80); PLATELET COUNT 126 10x3/uL (130-400); RDW 17.8 % (11.5-14.5)
[2018-10-05 05:09] LABS: WBC 13.2 10x3/uL (4.8-10.8)
[2018-10-05 05:23] LABS: ALBUMIN 2.9 g/dL (3.4-5.0); ANION GAP 13.5 mmol/L (8-16); BILIRUBIN - TOTAL 0.36 mg/dL (0.2-1.3); CALCIUM 9.2 mg/dL (8.5-10.1); CARBON DIOXIDE 29.4 mmol/L (21.0-32.0); CREATININE - SERUM 1.1 mg/dL (0.6-1.3); POTASSIUM - SERUM 3.9 mmol/L (3.5-5.1); PROTEIN - SERUM 6.8 g/dL (6.4-8.2)
[2018-10-05 09:56] VITALS: BP 114/86
[2018-10-05 20:30] VITALS: BP 176/87
[2018-10-06 04:30] VITALS: BP 185/92
[2018-10-06 09:23] VITALS: BP 179/80
[2018-10-06 11:33] LABS: HEMATOCRIT 38.6 % (36.0-48.0); HEMOGLOBIN 12.3 g/dL (12-16); MCH 29.1 pg (26.0-34.0); MCHC 31.9 g/dL (31.0-37.0); MCV 91.3 fL (80.0-100.0); PLATELET COUNT 176 10x3/uL (130-400); RBC 4.23 10x6/uL (4.00-5.40); WBC 23.9 10x3/uL (4.8-10.8)
[2018-10-06 11:43] LABS: ALBUMIN 3.5 g/dL (3.4-5.0); ANION GAP 15.5 mmol/L (8-16); BILIRUBIN - TOTAL 0.39 mg/dL (0.2-1.3); CALCIUM 9.9 mg/dL (8.5-10.1); CARBON DIOXIDE 26.5 mmol/L (21.0-32.0); PROTEIN - SERUM 7.9 g/dL (6.4-8.2)
[2018-10-06 11:44] LABS: CREATININE - SERUM 1.7 mg/dL (0.6-1.3)
[2018-10-06 11:49] LABS: HYPOCHROMASIA 1+; LYMPHOCYTES 8 % (15-50); MONOCYTES 1 % (2-11); NEUTROPHILS 91 % (40-80); PLATELET ESTIMATE NORMAL
[2018-10-06 11:53] VITALS: BP 169/78
[2018-10-06 14:52] VITALS: BP 205/85
[2018-10-06 20:30] VITALS: BP 160/73
[2018-10-07 05:49] LABS: BASOPHILS 0.1 % (0-2); EOSINOPHILS 0 % (0-7); HEMATOCRIT 35.1 % (36.0-48.0); IMMATURE GRANULOCYTES 0.8 % (0-5); LYMPHOCYTES 5.3 % (15-50); MCHC 31.3 g/dL (31.0-37.0); MCV 92.6 fL (80.0-100.0); MEAN PLATELET VOLUME 12.3 fL (7.4-10.4); MONOCYTES 8.7 % (2-11); NEUTROPHILS 85.1 % (40-80); RBC 3.79 10x6/uL (4.00-5.40); RDW 18.2 % (11.5-14.5)
[2018-10-07 06:00] LABS: PLATELET COUNT 139 10x3/uL (130-400); WBC 17.3 10x3/uL (4.8-10.8)
[2018-10-07 06:04] LABS: ALBUMIN 3.1 g/dL (3.4-5.0); ANION GAP 12.8 mmol/L (8-16); BILIRUBIN - TOTAL 0.18 mg/dL (0.2-1.3); CALCIUM 9.3 mg/dL (8.5-10.1); CARBON DIOXIDE 29.9 mmol/L (21.0-32.0); CREATININE - SERUM 1.7 mg/dL (0.6-1.3); POTASSIUM - SERUM 3.7 mmol/L (3.5-5.1)
[2018-10-07 10:40] VITALS: BP 133/68
[2018-10-07 15:43] VITALS: BP 146/76
[2018-10-07 22:11] VITALS: BP 217/49
[2018-10-08 01:13] VITALS: BP 167/95
[2018-10-08 04:46] LABS: BASOPHILS 0.1 % (0-2); EOSINOPHILS 0.1 % (0-7); HEMATOCRIT 33.7 % (36.0-48.0); HEMOGLOBIN 10.3 g/dL (12-16); IMMATURE GRANULOCYTES 0.8 % (0-5); LYMPHOCYTES 6.1 % (15-50); MCH 28.8 pg (26.0-34.0); MCHC 30.6 g/dL (31.0-37.0); MCV 94.1 fL (80.0-100.0); MEAN PLATELET VOLUME 12.1 fL (7.4-10.4); MONOCYTES 6.7 % (2-11); NEUTROPHILS 86.2 % (40-80); PLATELET COUNT 125 10x3/uL (130-400); RBC 3.58 10x6/uL (4.00-5.40); WBC 13.3 10x3/uL (4.8-10.8)
[2018-10-08 04:57] LABS: ALBUMIN 2.8 g/dL (3.4-5.0); BILIRUBIN - TOTAL 0.2 mg/dL (0.2-1.3); CALCIUM 9.5 mg/dL (8.5-10.1); CARBON DIOXIDE 32.1 mmol/L (21.0-32.0); CREATININE - SERUM 1.7 mg/dL (0.6-1.3); MAGNESIUM - SERUM 2.1 mg/dL (1.8-2.4); PROTEIN - SERUM 6.4 g/dL (6.4-8.2)
[2018-10-08 05:18] VITALS: BP 146/71
[2018-10-08 07:08] LABS: POTASSIUM - SERUM 4.1 mmol/L (3.5-5.1)
[2018-10-08 08:39] VITALS: BP 129/78
[2018-10-08 11:16] VITALS: BP 131/76
[2018-10-08 15:48] VITALS: BP 138/72
[2018-10-08 21:07] VITALS: BP 182/65
[2018-10-09] VITALS (7 sets, daily range): BP systolic 132–165; BP diastolic 48–116
[2018-10-09 05:40] LABS: BASOPHILS 0.1 % (0-2); EOSINOPHILS 0.2 % (0-7); HEMATOCRIT 35.3 % (36.0-48.0); HEMOGLOBIN 10.8 g/dL (12-16); IMMATURE GRANULOCYTES 1.4 % (0-5); MCHC 30.6 g/dL (31.0-37.0); MCV 94.6 fL (80.0-100.0); MONOCYTES 5.3 % (2-11); PLATELET COUNT 128 10x3/uL (130-400); RBC 3.73 10x6/uL (4.00-5.40); RDW 18.3 % (11.5-14.5); WBC 13.3 10x3/uL (4.8-10.8)
[2018-10-09 05:58] LABS: ALBUMIN 2.8 g/dL (3.4-5.0); ANION GAP 15.1 mmol/L (8-16); BILIRUBIN - TOTAL 0.2 mg/dL (0.2-1.3); CALCIUM 9.1 mg/dL (8.5-10.1); CARBON DIOXIDE 27.5 mmol/L (21.0-32.0); CREATININE - SERUM 1.6 mg/dL (0.6-1.3); POTASSIUM - SERUM 3.6 mmol/L (3.5-5.1); PROTEIN - SERUM 6.6 g/dL (6.4-8.2)
[2018-10-10 03:55] VITALS: BP 133/66
[2018-10-10 04:53] LABS: BASOPHILS 0.1 % (0-2); EOSINOPHILS 0.2 % (0-7); HEMATOCRIT 34.6 % (36.0-48.0); HEMOGLOBIN 10.7 g/dL (12-16); IMMATURE GRANULOCYTES 1.2 % (0-5); LYMPHOCYTES 10.8 % (15-50); MCH 29.2 pg (26.0-34.0); MCHC 30.9 g/dL (31.0-37.0); MCV 94.5 fL (80.0-100.0); MONOCYTES 8.9 % (2-11); NEUTROPHILS 78.8 % (40-80); PLATELET COUNT 136 10x3/uL (130-400); RBC 3.66 10x6/uL (4.00-5.40); RDW 18.4 % (11.5-14.5); WBC 13.2 10x3/uL (4.8-10.8)
[2018-10-10 05:22] LABS: ALBUMIN 2.8 g/dL (3.4-5.0); ANION GAP 12.3 mmol/L (8-16); BILIRUBIN - TOTAL 0.22 mg/dL (0.2-1.3); CALCIUM 9.3 mg/dL (8.5-10.1); CARBON DIOXIDE 27.1 mmol/L (21.0-32.0); CREATININE - SERUM 1.6 mg/dL (0.6-1.3); POTASSIUM - SERUM 3.4 mmol/L (3.5-5.1); PROTEIN - SERUM 6.6 g/dL (6.4-8.2)
[2018-10-10 07:41] VITALS: BP 129/77
[2018-10-10] MEDS ORDERED: XOPENEX 0.0.63 MG/3 INH (08:39)
[2018-10-10] MEDS ORDERED: BROVANA15 MCG/2 M INH (08:39)
[2018-10-10] MEDS ORDERED: CARDIZEM60 MG PO (08:40)
[2018-10-10] MEDS ORDERED: LISINOPRIL10 MG PO (08:40)
[2018-10-10] MEDS ORDERED: LASIX40 MG PO (08:40)
[2018-10-10] MEDS ORDERED: HUMULIN R100 U/ML SC (08:41)
[2018-10-10] MEDS ORDERED: Lantus Solostar PEN SC (08:41)
[2018-10-10] MEDS ORDERED: ROBITUSSIN DM 110 ML PO (08:42)
[2018-10-10] MEDS ORDERED: PROTONIX40 MG PO (08:42)
[2018-10-10] MEDS ORDERED: PULMICORT0.5 MG/21 UPD (08:43)
[2018-10-10] MEDS ORDERED: KLOR-CON M2020 MEQ PO (08:44)
[2018-10-10] MEDS ORDERED: PREDNISONE20 MG PO (08:49)
== END 2018-10-10 12:31 | DRG 4 ==
LOC: D.ER 16:23 → D.ICU 16:38 → D.M2 10-04 16:50
PROVIDERS: Emergency Medicine; Family Medicine; General Practice; Internal Medicine; Internal Medicine Gastroenterology; Internal Medicine Interventional Cardiology; Internal Medicine Nephrology; Internal Medicine Pulmonary Disease
PROC: 5A1955Z Respiratory Ventilation, Greater than 96 Consecutive Hours (ICD-10-PCS; principal; 2018-08-27)
PROC: 0B113F4 Bypass Trachea to Cutaneous with Tracheostomy Device, Percutaneous Approach (ICD-10-PCS; 2018-09-10)
PROC: 0DB78ZX Excision of Stomach, Pylorus, Via Natural or Artificial Opening Endoscopic, Diagnostic (ICD-10-PCS; 2018-09-13)
DX: A41.9 Sepsis, unspecified organism (principal); J96.01 Acute respiratory failure with hypoxia; J96.02 Acute respiratory failure with hypercapnia; J15.212 Pneumonia due to Methicillin resistant Staphylococcus aureus; K29.71 Gastritis, unspecified, with bleeding; I50.33 Acute on chronic diastolic (congestive) heart failure; I13.0 Hypertensive heart and chronic kidney disease with heart failure and stage 1 through stage 4 chronic kidney disease, or unspecified chronic kidney disease; A04.72 Enterocolitis due to Clostridium difficile, not specified as recurrent; I44.2 Atrioventricular block, complete; N17.9 Acute kidney failure, unspecified; Z68.43 Body mass index [BMI] 50.0-59.9, adult; K22.10 Ulcer of esophagus without bleeding; N18.9 Chronic kidney disease, unspecified; E11.22 Type 2 diabetes mellitus with diabetic chronic kidney disease; D63.1 Anemia in chronic kidney disease; K21.9 Gastro-esophageal reflux disease without esophagitis; E78.5 Hyperlipidemia, unspecified; E66.01 Morbid (severe) obesity due to excess calories; D50.9 Iron deficiency anemia, unspecified; E87.5 Hyperkalemia; J98.2 Interstitial emphysema; D69.6 Thrombocytopenia, unspecified; M25.552 Pain in left hip; K44.9 Diaphragmatic hernia without obstruction or gangrene; G47.33 Obstructive sleep apnea (adult) (pediatric); I48.91 Unspecified atrial fibrillation